=== PATIENT | female | born 1935 | race Caucasian/White ===

== ENCOUNTER 2019-11-28 13:30 | Inpatient (IN) | payer MEDICARE, OTHER, SELFPAY ==
[2019-11-28] VITALS (8 sets, daily range): BP systolic 134–172; BP diastolic 57–76; PULSE 72–160; RESP 16–20; TEMP 36.8–37.1; O2SAT 97–99; BMI 26.6; BMI 25.3
--- NOTE | 2019-11-28 13:53 | ECG_ITS ---
APPROVED REPORT Exam: Resting ECG HR:162 bpm ECG Measurements Heart Rate 162 AXES QRSd 72 QRS -8 QT 260 T 205 QTc 426 <Conclusion> Atrial fibrillation with rapid ventricular response Septal infarct, age undetermined ST & T wave abnormality, consider inferior ischemia or digitalis effect Abnormal ECG Electronically signed by : Vinay Uribe, 12/01/2019 06:34:27
--- NOTE | 2019-11-28 14:01 | PC.NURSE ---
Azar Everett in with pt for cardiology consult
--- NOTE | 2019-11-28 14:02 | XR_ITS ---
PROCEDURE: XR CHEST PORTABLE CLINICAL HISTORY: ARRYTHMIA COMPARISON: No exams were available for comparison FINDINGS: The cardiomediastinal silhouette and pulmonary vascularity are within normal limits. The lungs are clear without infiltrates, suspicious nodules, or pleural effusions. No acute bony abnormalities. IMPRESSION: No acute findings. Dictated by: Dr. Saqib Soriano MD 11/28/2019 14:[address] Saqib Soriano MD in [facility] 11/28/2019 14:44
--- NOTE | 2019-11-28 14:06 | PC.NURSE ---
rad here for portable chest xray
--- NOTE | 2019-11-28 14:07 | HMH.EDARPALP ---
ED Disposition Clinical Impression: Atrial fibrillation Qualifiers: Atrial fibrillation type: unspecified Qualified Code(s): I48.91 - Unspecified atrial fibrillation Disposition: Admitted As Inpatient Condition on Discharge: Good Referrals: Maurice Andrade MD [Primary Care Provider] - - Critical Care Critical Care Time: No Attestation: On 11/28/19, the high probability of a clinically significant, sudden or life threatening deterioration of the following system(s) required my full and direct attention, intervention and personal management. The time I documented below is in addition to time spent performing reported procedures but includes the following listed in this critical care notation. Medical Decision Making - Medical Records Medical records reviewed: Yes: I reviewed the patient's medical records. - Michael Inquiry Pt receiving controlled substance: No Vital Signs: 11/28/19 13:31 Temperature 98.4 F Temperature Source Oral Pulse Rate [Right Radial] 160 H Respiratory Rate 16 Blood Pressure [Right Arm] 163/74 H Blood Pressure Mean [Right Arm] 103 Blood Pressure Source [Right Arm] Automatic Cuff Blood Pressure Position [Right Arm] Sitting 02 Sat by Pulse Oximetry 98 Oxygen Delivery Method Room Air - Lab Data Lab results reviewed: Yes: I reviewed the patient's lab results. Lab Results 11/28/19 14:00: WBC 10.4, RBC 4.45, Hgb 13.3, Hct 39.9, MCV 89.5, MCH 29.9, MCHC 33.4, RDW 12.8, Plt Count 258, MPV 7.1 L, Neut % (Auto) 77.1, Lymph % (Auto) 15.8, [place] % (Auto) 5.9, Eos % (Auto) 0.7, Baso % (Auto) 0.7, Neut # (Auto) 8.0 H, Lymph # (Auto) 1.6, [place] # (Auto) 0.6, Eos # (Auto) 0.1, Baso # (Auto) 0.1 11/28/19 14:00: Sodium 133 L, Potassium 3.9, Chloride 98, Carbon Dioxide 24, Anion Gap 14.9, BUN 24 H, Creatinine 1.40 H, Estimated Creat Clear 34, Estimated GFR 36 L, Est GFR ( Amer) 43 L, Glucose 121 H, Calcium 9.3, Total Bilirubin 0.8, AST 45 H, ALT 32, Alkaline Phosphatase 66, Troponin I 0.02, Total Protein 7.2, Albumin 4.7, Globulin 2.5, Albumin/Globulin Ratio 1.9 H, Thyroxine (T4) 9.7 Result diagrams: 11/28/19 14:00 11/28/19 14:00 Orders (Tests/Meds): ED MEDICATIONS Generic Name Dose Route Start Last Admin Trade Name Freq PRN Reason Stop Dose Admin Diltiazem HCl 100 mg/ Sodium 100 mls @ 5 mls/hr 11/28/19 14:15 11/28/19 14:12 Chloride IV 12/28/19 14:14 5 mls/hr .Q20H HORTENCIA Administration Protocol Discontinued Medications Generic Name Dose Route Start Last Admin Trade Name Freq PRN Reason Stop Dose Admin Diltiazem HCl 10 mg 11/28/19 14:05 11/28/19 14:11 Cardizem 25mg/5ml Vial IV 11/28/19 14:06 10 mg ONCE ONE Administration Diltiazem HCl 100 mg/ Sodium 100 mls @ 5 mls/hr 11/28/19 14:24 Chloride IV 12/28/19 14:23 .Q20H HORTENCIA Protocol ORDERS Category Date Time Status XR chest portable Stat Exams 11/28/19 14:02 Taken Comprehensive Metabolic Panel Stat Lab 11/28/19 14:00 Results Free T4 (Free Thyroxine) Stat Lab 11/28/19 14:00 Received T4 (Thyroxine) Stat Lab 11/28/19 14:00 Results TSH [Thyroid Stimulating Hormone] Stat Lab 11/28/19 14:00 Results Troponin I Q3H Lab 11/28/19 17:15 Ordered Troponin I Q3H Lab 11/28/19 20:15 Ordered Troponin I Stat Lab 11/28/19 14:00 Results - ECG Data Tracing #1 Arrhythmias present: afib Ischemic changes: non-specific ST-T wave changes - Physician Consults Physician Consulted: josé Reason -: Admission Additional Consult: nirmal Reason -: Pt condition Arrhythmia/Palpitations HPI - General Chief Complaint: Arrhythmia/Palpitations Stated Complaint: high blood pressure Time Seen by Provider: 11/28/19 13:40 Mode of Arrival: Ambulatory Source of Information: Patient, Relative, Medical Record Limitations: No Limitations - History of Present Illness HPI narrative: seen by pcp with increased hr - irreg with no hx of a fib - sent by pcp - has hx of htn - no syncope or ches
--- NOTE | 2019-11-28 14:10 | PC.NURSE ---
CV lab at bedside
--- NOTE | 2019-11-28 14:12 | HMH.CNCARD ---
History of Present Illness Consult date: 11/28/19 Requesting physician: Maurice Andrade Consult reason: atrial fibrillation Chief complaint: irregular, rapid heart rate Additional Medical History:: 1. Hypertension 2. New onset atrial fibrillation, 11/28/2019, with rapid ventricular response up to 170 bpm History of present illness: 83-year-old white female with history of hypertension presented to Dr. Andrade's office for evaluation of irregular rapid heart rate today. It was suspected that the patient had atrial fibrillation and was sent to the emergency department for further treatment. Patient denies any chest pain, pressure or tightness. At the time of my exam the patient had received a bolus of Cardizem and heart rate had improved down to around 110 bpm. Patient was still not convinced that she had anything that warranted hospitalization. Tried to explain the risk of stroke and the need to evaluate the etiology of her atrial fibrillation, although most likely it is related to her age. Patient takes a combination of diltiazem and Toprol on a regular basis for blood pressure. She maintains compliance with her medication. She is a non-smoker, nondrinker and nondiabetic. She denies any history of thyroid issues. She denies any recent fever, chills or GI illness. [facility] History Medical History: Denies:: Diabetes Mellitus Type 1, Diabetes Mellitus Type 2 *Have you ever received a pneumonia vaccine?: No *Have you received a flu vaccine this season?: No - *Social History Smoking Status: Never smoker Alcohol Intake: never *Occupational Status:: retired *Travel in the last 8 weeks: None Family Hx:: No significant family history Meds Allergies Allergy/AdvReac Type Severity Reaction Status Date / Time No Known Allergies Allergy Verified 04/10/18 13:25 Review of Systems - Review of Systems Review of systems:: pertinent systems reviewed and negative unless documented below - *Cardiovascular Denies chest pain, Denies shortness of breath - *Respiratory Denies cough, Denies shortness of breath - *Gastrointestinal Denies loose stools, Denies nausea, Denies vomiting - *Genitourinary Denies blood in urine - *Musculoskeletal Denies joint pain, Denies back pain - *Neurologic Denies tingling/numbness/burning sensations Exam Vital signs and Labs for Last 24 Hours: Temp Pulse Resp BP Pulse Ox 98.4 F 160 H 16 163/74 H 98 11/28/19 13:31 11/28/19 13:31 11/28/19 13:31 11/28/19 13:31 11/28/19 13:31 I & O for Last 24 hours: Intake & Output 11/26/19 11/27/19 11/28/19 11/29/19 11:59 11:59 11:59 11:59 Weight 160 lb - *Routine HEENT Exam Head: Present: normocephalic Eye: Present: EOMI, PERRL ENT: Present: mucous membranes moist - *Routine Neck Exam Present: supple. Absent: JVD, carotid bruit - *Routine Respiratory Exam Present: CTA bilaterally. Absent: accessory muscle use, rales, rhonchi, wheezes - *Routine Cardiovascular Exam Present: RRR. Absent: murmur, gallop, rubs - *Routine Abdominal Exam Present: soft. Absent: tenderness, distended, guarding - *Routine Extremities Exam Absent: edema, calf tenderness - *Routine Neurological Exam Present: alert, oriented X3, moving all extremities Assessment and Plan (1) Atrial fibrillation with rapid ventricular response Current visit: Yes Status: Acute Category: Medical Code(s): I48.91 - Unspecified atrial fibrillation (2) New onset atrial fibrillation Current visit: Yes Status: Acute Category: Medical Code(s): I48.91 - Unspecified atrial fibrillation (3) Chronic hypertension Current visit: Yes Status: Acute Category: Medical Code(s): I10 - Essential (primary) hypertension - Assessment and plan all Dx Assessment and Plan for all problems:: 1. New onset atrial fibrillation with rapid ventricular response. Initially sensitive to Cardizem bolus with plans for Cardizem drip to begin with titration
[2019-11-28 14:14] LABS: Basophils # 0.1 K/mm3 (0-0.2); Basophils % 0.7 % (0.1-2.0); Eosinophils # 0.1 K/mm3 (0.0-0.4); Eosinophils % 0.7 % (0.1-12.0); Hematocrit 39.9 % (37.0-47.0); Hemoglobin 13.3 g/dL (12.2-16.2); Lymphocytes # 1.6 K/mm3 (0.7-4.5); Lymphocytes % 15.8 % (10-50); Mean Corpuscular HGB Conc 33.4 g/dL (31.8-35.4); Mean Corpuscular Hemoglobin 29.9 pg (27.0-31.2); Mean Corpuscular Volume 89.5 fl (81-99); Mean Platelet Volume 7.1 fl (7.4-10.4); Monocytes # 0.6 K/mm3 (0.1-1.0); Monocytes % 5.9 % (1.7-9.3); Neutrophils % 77.1 % (37.0-80.0); Platelet Count 258 K/mm3 (142-424); Red Blood Count 4.45 M/mm3 (4.20-5.40); Red Cell Distribution Width 12.8 % (11.5-17.5); White Blood Count 10.4 K/mm3 (4.8-10.8)
[2019-11-28 14:20] LABS: Chloride 98 mmol/L (98-107); Potassium 3.9 mmoL/L (3.5-5.1); Sodium 133 mmol/L (136-145)
[2019-11-28 14:22] LABS: Blood Urea Nitrogen 24 mg/dl (7-17); Creatinine Clearance Estimated 34 mL/min (50-200); Estimated Glomerular Filt Rate 36 ml/min (>60); GFR (African American) 43 ML/MIN (>60)
[2019-11-28 14:23] LABS: Alanine Aminotransferase 32 U/L (12-78); Albumin Level 4.7 g/dl (3.5-5.0); Albumin/Globulin Ratio 1.9 (1.1-1.8); Alkaline Phosphatase 66 U/L (38-126); Anion Gap 14.9 mEq/L (5-15); Aspartate Amino Transferase 45 U/L (14-36); Bilirubin,Total 0.8 mg/dl (0.2-1.3); Calcium 9.3 mg/dl (8.4-10.2); Carbon Dioxide 24 mmol/L (22.0-30.0); Globulin 2.5 g/dL (1.3-3.2); Glucose 121 mg/dl (74-100); Total Protein,Serum 7.2 g/dl (6.3-8.2)
[2019-11-28 14:36] LABS: Troponin I 0.02 ng/ml (0.00-0.034)
[2019-11-28 14:40] LABS: T4 (Thyroxine) 9.7 ug/dl (5.53-11.0)
[2019-11-28 14:49] LABS: Free T4 (Free Thyroxine) 1.18 ng/dl (0.78-2.19)
--- NOTE | 2019-11-28 15:02 | HMH.PHAVTE ---
[facility] Pharmacy VTE Monitoring - Patient Demographics Admission date: 11/28/19 Report Date: 11/28/19 Time: 15:02 Allergies/Adverse Reactions: Patient Allergies No Known Allergies Allergy (Verified 04/10/18 13:25) Height: 1.65 m Weight: 72.575 kg Patient Problems: Current Active Problems Atrial fibrillation with rapid ventricular response (Acute) New onset atrial fibrillation (Acute) Chronic hypertension (Acute) Atrial fibrillation (Acute) - VTE Risk Labs: VTE Related Lab Results Hgb 13.3 g/dL (12.2-16.2) 11/28/19 14:00 Hct 39.9 % (37.0-47.0) 11/28/19 14:00 Plt Count 258 K/mm3 (142-424) 11/28/19 14:00 BUN 24 mg/dl (7-17) H 11/28/19 14:00 Creatinine 1.40 mg/dl (0.52-1.04) H 11/28/19 14:00 Estimated Creat Clear 34 mL/min (50-200) 11/28/19 14:00 - Prophylaxis VTE Prophylaxis Ordered?: Yes Types of VTE Prophylaxis: TEDS Knee High Location of Applied Device: Bilateral Lower Extremeties - VTE Diagnosis Confirmed Treatment or plan recommended: Continue Current Treatment
--- NOTE | 2019-11-28 15:16 | HMH.PHAINT ---
MEDICATION RECONCILIATION COMPLETED ON PATIENT USING MD LIST FROM [facility] AND EXTERNAL FILL HISTORY FROM PHARMACY. -JAYDE HARRISD
--- NOTE | 2019-11-28 15:30 | PC.NURSE ---
Report given to CHERISE Martínez/
--- NOTE | 2019-11-28 15:41 | PC.NURSE ---
TRANSPORTED TO [facility] BY ER STAFF AND TECH
--- NOTE | 2019-11-28 17:23 | PC.NURSE ---
1700 - Received report and resumed care from Brii Sommer RN
[2019-11-28 17:39] LABS: Troponin I 0.03 ng/ml (0.00-0.034)
--- NOTE | 2019-11-28 18:57 | HMH.ACPN2 ---
Internal Medicine - PN: Subj *Date: 11/28/19 *Time: 18:57 Interval history: Sent to ER with new onset atrial fibrillation. Was seen by Dr. Andrade in [facility] office. See H&P from office. Immunization status undocumented, but is assumed she needs Prevnar at this time. This was NOT given today in the office dur to her clinical presentation. 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 O: NAD, but HR was 138 and irregular. Lungs clear. No leg edema. P: Admitted from ER on Diltiazem drip. Cardiology consulted. See Cardiology evaluation Exam Vital signs and Labs for Last 24 Hours: Temp Pulse Resp BP Pulse Ox 98.5 F 88 16 134/62 97 11/28/19 15:58 11/28/19 18:00 11/28/19 18:00 11/28/19 18:00 11/28/19 18:00 Laboratory Results - last 24 hr 11/28/19 14:00: WBC 10.4, RBC 4.45, Hgb 13.3, Hct 39.9, MCV 89.5, MCH 29.9, MCHC 33.4, RDW 12.8, Plt Count 258, MPV 7.1 L, Neut % (Auto) 77.1, Lymph % (Auto) 15.8, [place] % (Auto) 5.9, Eos % (Auto) 0.7, Baso % (Auto) 0.7, Neut # (Auto) 8.0 H, Lymph # (Auto) 1.6, [place] # (Auto) 0.6, Eos # (Auto) 0.1, Baso # (Auto) 0.1 11/28/19 14:00: Sodium 133 L, Potassium 3.9, Chloride 98, Carbon Dioxide 24, Anion Gap 14.9, BUN 24 H, Creatinine 1.40 H, Estimated Creat Clear 34, Estimated GFR 36 L, Est GFR ( Amer) 43 L, Glucose 121 H, Calcium 9.3, Total Bilirubin 0.8, AST 45 H, ALT 32, Alkaline Phosphatase 66, Troponin I 0.02, Total Protein 7.2, Albumin 4.7, Globulin 2.5, Albumin/Globulin Ratio 1.9 H, TSH 0.80, Thyroxine (T4) 9.7 11/28/19 14:00: Free T4 1.18 11/28/19 17:10: Troponin I 0.03 I & O for Last 24 hours: Intake & Output 11/26/19 11/27/19 11/28/19 11/29/19 11:59 11:59 11:59 11:59 Intake Total 480 / 480 Balance 480 / 480 Weight 152 lb 8 oz Assessment and Plan (1) Atrial fibrillation with rapid ventricular response Current visit: Yes Status: Acute Category: Medical Code(s): I48.91 - Unspecified atrial fibrillation (2) New onset atrial fibrillation Current visit: Yes Status: Acute Category: Medical Code(s): I48.91 - Unspecified atrial fibrillation (3) Chronic hypertension Current visit: Yes Status: Acute Category: Medical Code(s): I10 - Essential (primary) hypertension (4) Memory changes Current visit: Yes Status: Acute Category: Medical Code(s): R41.3 - Other amnesia
--- NOTE | 2019-11-28 19:10 | PC.NURSE ---
report given to heber
[2019-11-28 19:47] LABS: Thyroid Stimulating Hormone 0.55 uIU/mL (0.465-4.68)
[2019-11-28 20:51] LABS: Troponin I 0.03 ng/ml (0.00-0.034)
--- NOTE | 2019-11-28 22:06 | HMH.ACPN2 ---
Internal Medicine - PN: Subj *Date: 11/28/19 *Time: 22:06 Interval history: She is resting quite comfortably this evening. Her heart rate has slowed to 80s and 90s but she remains in atrial fibrillation. Her lungs are clear and she has no leg edema. Exam Vital signs and Labs for Last 24 Hours: Temp Pulse Resp BP Pulse Ox 98.3 F 72 18 172/57 H 97 11/28/19 20:00 11/28/19 20:00 11/28/19 20:00 11/28/19 20:00 11/28/19 20:00 Laboratory Results - last 24 hr 11/28/19 14:00: WBC 10.4, RBC 4.45, Hgb 13.3, Hct 39.9, MCV 89.5, MCH 29.9, MCHC 33.4, RDW 12.8, Plt Count 258, MPV 7.1 L, Neut % (Auto) 77.1, Lymph % (Auto) 15.8, [place] % (Auto) 5.9, Eos % (Auto) 0.7, Baso % (Auto) 0.7, Neut # (Auto) 8.0 H, Lymph # (Auto) 1.6, [place] # (Auto) 0.6, Eos # (Auto) 0.1, Baso # (Auto) 0.1 11/28/19 14:00: Sodium 133 L, Potassium 3.9, Chloride 98, Carbon Dioxide 24, Anion Gap 14.9, BUN 24 H, Creatinine 1.40 H, Estimated Creat Clear 34, Estimated GFR 36 L, Est GFR ( Amer) 43 L, Glucose 121 H, Calcium 9.3, Total Bilirubin 0.8, AST 45 H, ALT 32, Alkaline Phosphatase 66, Troponin I 0.02, Total Protein 7.2, Albumin 4.7, Globulin 2.5, Albumin/Globulin Ratio 1.9 H, TSH 0.80, Thyroxine (T4) 9.7 11/28/19 14:00: Free T4 1.18 11/28/19 17:10: Troponin I 0.03 11/28/19 17:10: TSH 0.55 D 11/28/19 20:24: Troponin I 0.03 I & O for Last 24 hours: Intake & Output 11/26/19 11/27/19 11/28/19 11/29/19 11:59 11:59 11:59 11:59 Intake Total 480 / 480 Balance 480 / 480 Weight 152 lb 8 oz - Constitutional no acute distress - *Routine Respiratory Exam Present: CTA bilaterally - *Routine Cardiovascular Exam Present: irregular rhythm - *Routine Abdominal Exam Present: soft. Absent: tenderness, organomegaly - *Routine Extremities Exam Absent: edema - *Routine Neurological Exam Present: alert. Absent: sensory deficit, motor deficit Assessment and Plan (1) Atrial fibrillation with rapid ventricular response Current visit: Yes Status: Acute Category: Medical Code(s): I48.91 - Unspecified atrial fibrillation (2) New onset atrial fibrillation Current visit: Yes Status: Acute Category: Medical Code(s): I48.91 - Unspecified atrial fibrillation (3) Chronic hypertension Current visit: Yes Status: Acute Category: Medical Code(s): I10 - Essential (primary) hypertension (4) Memory changes Current visit: Yes Status: Acute Category: Medical Code(s): R41.3 - Other amnesia - Assessment and plan all Dx Assessment and Plan for all problems:: Resume diazepam 2 mg 3 times daily. Resume donepezil 5 mg at bedtime. Resume hydrochlorothiazide triamterene 25mg?37.5mg, 1/2 tablet orally each day.
[2019-11-29] VITALS (15 sets, daily range): BP systolic 111–157; BP diastolic 43–78; PULSE 60–123; RESP 14–18; TEMP 36.4–37.2; O2SAT 95–100; BMI 25.3
--- NOTE | 2019-11-29 04:11 | PC.NURSE ---
Pt has been awake most of the night and has only slept at short intervals. Raymond at bedside this evening and ordered Aricept 5 mg PO at HS and diazepam 2.5 mg PO at HS. Both were administered per mar. Pt lungs were clear bilaterally. Radial pulses are irregular and pt has remained in controlled A. Fib t/o this shift. Pt is urinating clear, light yellow urine with no odor. Cardizem gtt is flowing @ 5 mg/hr through her LAC along with NS @ 50 ml/hr. Pt's family stated that they would be in early in the morning for MD rounds. Call light is within reach, no complaints at this time. Will continue to monitor for any changes.
[2019-11-29 06:19] LABS: Basophils # 0.1 K/mm3 (0-0.2); Basophils % 0.9 % (0.1-2.0); Eosinophils # 0.2 K/mm3 (0.0-0.4); Eosinophils % 3.1 % (0.1-12.0); Hematocrit 36.6 % (37.0-47.0); Hemoglobin 12.2 g/dL (12.2-16.2); Lymphocytes # 2.1 K/mm3 (0.7-4.5); Lymphocytes % 29.5 % (10-50); Mean Corpuscular HGB Conc 33.4 g/dL (31.8-35.4); Mean Corpuscular Hemoglobin 30.3 pg (27.0-31.2); Mean Corpuscular Volume 90.7 fl (81-99); Mean Platelet Volume 7.6 fl (7.4-10.4); Monocytes # 0.5 K/mm3 (0.1-1.0); Monocytes % 7.5 % (1.7-9.3); Neutrophils # 4.2 K/mm3 (1.8-7.8); Platelet Count 233 K/mm3 (142-424); Red Blood Count 4.04 M/mm3 (4.20-5.40); Red Cell Distribution Width 13.1 % (11.5-17.5); White Blood Count 7.2 K/mm3 (4.8-10.8)
[2019-11-29 06:59] LABS: Chloride 107 mmol/L (98-107); Potassium 3.7 mmoL/L (3.5-5.1); Sodium 138 mmol/L (136-145)
[2019-11-29 07:02] LABS: Anion Gap 9.7 mEq/L (5-15); Blood Urea Nitrogen 21 mg/dl (7-17); Calcium 8.6 mg/dl (8.4-10.2); Carbon Dioxide 25 mmol/L (22.0-30.0); Cholesterol 139 mg/dl (140-200); Creatinine Clearance Estimated 46 mL/min (50-200); Estimated Glomerular Filt Rate 53 ml/min (>60); GFR (African American) 64 ML/MIN (>60); Glucose 112 mg/dl (74-100); Triglycerides 79 mg/dl (30-150); VLDL Cholesterol 16 mg/dL (0-40)
[2019-11-29 07:03] LABS: Chol/HDL Ratio 2.2 (1-3.5); HDL Cholesterol 62 mg/dl (40-60); Magnesium 2.1 mg/dl (1.6-2.3)
[2019-11-29 07:13] LABS: Direct LDL Cholesterol 67.72 mg/dL (100-129)
--- NOTE | 2019-11-29 12:11 | P.PN_ITS ---
Internal Medicine - PN: Subj *Date: 11/29/19 *Time: 12:11 Interval history: The patient was seen this morning. She had a comfortable night, but remains in atrial fibrillation. Rate is more controlled, from 80 to 100 BPM. Exam Vital signs and Labs for Last 24 Hours: Temp Pulse Resp BP Pulse Ox 98.0 F 81 18 154/65 H 99 11/29/19 10:00 11/29/19 10:00 11/29/19 10:00 11/29/19 10:00 11/29/19 10:00 Laboratory Results - last 24 hr 11/28/19 14:00: WBC 10.4, RBC 4.45, Hgb 13.3, Hct 39.9, MCV 89.5, MCH 29.9, MCHC 33.4, RDW 12.8, Plt Count 258, MPV 7.1 L, Neut % (Auto) 77.1, Lymph % (Auto) 15.8, [place] % (Auto) 5.9, Eos % (Auto) 0.7, Baso % (Auto) 0.7, Neut # (Auto) 8.0 H, Lymph # (Auto) 1.6, [place] # (Auto) 0.6, Eos # (Auto) 0.1, Baso # (Auto) 0.1 11/28/19 14:00: Sodium 133 L, Potassium 3.9, Chloride 98, Carbon Dioxide 24, Anion Gap 14.9, BUN 24 H, Creatinine 1.40 H, Estimated Creat Clear 34, Estimated GFR 36 L, Est GFR ( Amer) 43 L, Glucose 121 H, Calcium 9.3, Total Bilirubin 0.8, AST 45 H, ALT 32, Alkaline Phosphatase 66, Troponin I 0.02, Total Protein 7.2, Albumin 4.7, Globulin 2.5, Albumin/Globulin Ratio 1.9 H, TSH 0.80, Thyroxine (T4) 9.7 11/28/19 14:00: Free T4 1.18 11/28/19 17:10: Troponin I 0.03 11/28/19 17:10: TSH 0.55 D 11/28/19 20:24: Troponin I 0.03 11/29/19 05:55: WBC 7.2 D, RBC 4.04 L, Hgb 12.2, Hct 36.6 L, MCV 90.7, MCH 30.3, MCHC 33.4, RDW 13.1, Plt Count 233, MPV 7.6, Neut % (Auto) 59.0, Lymph % (Auto) 29.5, [place] % (Auto) 7.5, Eos % (Auto) 3.1, Baso % (Auto) 0.9, Neut # (Auto) 4.2, Lymph # (Auto) 2.1, [place] # (Auto) 0.5, Eos # (Auto) 0.2, Baso # (Auto) 0.1 11/29/19 05:55: Sodium 138, Potassium 3.7, Chloride 107, Carbon Dioxide 25, Anion Gap 9.7, BUN 21 H, Creatinine 1.00 D, Estimated Creat Clear 46, Estimated GFR 53 L, Est GFR ( Amer) 64 D, Glucose 112 H, Calcium 8.6, Magnesium 2.1, Triglycerides 79, Cholesterol 139 L, LDL Cholesterol Direct 67.72 L, VLDL Cholesterol 16, HDL Cholesterol 62 H, Cholesterol/HDL Ratio 2.2 I & O for Last 24 hours: Intake & Output 11/27/19 11/28/19 11/29/19 11/30/19 11:59 11:59 11:59 11:59 Intake Total 480 / 480 Balance 480 / 480 Weight 152 lb 3 oz - Constitutional no acute distress - *Routine HEENT Exam Head: Present: normocephalic Eye: Present: PERRL ENT: Present: mucous membranes moist - *Routine Respiratory Exam Present: CTA bilaterally - *Routine Cardiovascular Exam Present: irregular rhythm, irregularly irregular - *Routine Abdominal Exam Present: soft. Absent: tenderness - *Routine Extremities Exam Absent: edema Assessment and Plan (1) Atrial fibrillation with rapid ventricular response Current visit: Yes Status: Acute Category: Medical Code(s): I48.91 - Unspecified atrial fibrillation (2) New onset atrial fibrillation Current visit: Yes Status: Acute Category: Medical Code(s): I48.91 - Unspecified atrial fibrillation (3) Chronic hypertension Current visit: Yes Status: Acute Category: Medical Code(s): I10 - Essential (primary) hypertension (4) Memory changes Current visit: Yes Status: Acute Category: Medical Code(s): R41.3 - Other amnesia - Assessment and plan all Dx Assessment and Plan for all problems:: I am not sure if her atrial fibrillation is chronic, but suspect at least, episodic dysrrhythmia. Will resume bisoprolol and oral diltiazem.
--- NOTE | 2019-11-29 16:23 | PC.NURSE ---
Pt has been pleasant and cooperative this shift. A&O X4. No complaints of pain or SOA. Pt is step-down status and receiving a continuous Cardizem drip. Telemetry reveals controlled a-fib with a HR between 80-100. Lungs CTA. No edema noted. Skin is c/d/i. Pt is on room air and sats. have remained >95%. Pt ambulates independently to and from the bathroom and only requires assistance with the IV pole. 18 G peripheral IV in place to the LT AC is patent and infusing NS @ 50 ML/HR + Cardizem @ 10 ML/HR. VSS. Call light within reach. Will continue to monitor.
--- NOTE | 2019-11-29 18:19 | PC.NURSE ---
Pt has been pleasant and cooperative this shift. A&O X4. No complaints of pain or SOA. Pt is step-down status and receiving a continuous Cardizem drip. Telemetry reveals controlled a-fib with a HR between 80-100. Lungs CTA. No edema noted. Skin is c/d/i. Pt is on room air and sats. have remained >95%. Pt ambulates independently to and from the bathroom and only requires assistance with the IV pole. 18 G peripheral IV in place to the LT AC is patent and infusing NS @ 50 ML/HR + Cardizem @ 5 ML/HR. VSS. Call light within reach. Will continue to monitor.
[2019-11-30] VITALS (13 sets, daily range): BP systolic 119–157; BP diastolic 46–69; PULSE 60–120; RESP 14–20; TEMP 36.4–37.3; O2SAT 95–100; BMI 25.4
--- NOTE | 2019-11-30 02:23 | PC.NURSE ---
She was altert at the beginning of the shift but confusion progressed as the night progressed. She had forgotten that she was at the hospital and how she got to the hospital. Frequent reminders needed on how she got to the hospital. She ambulates independently. Has been in controlled afib most of the night except around midnight when she was awakened for a temperature and screamed out and that is when the confusion was noted. She is in controlled afib at this time.
--- NOTE | 2019-11-30 04:06 | PC.NURSE ---
Less confusion noted at this time
--- NOTE | 2019-11-30 05:28 | PC.NURSE ---
Cardizem gtt is off at this time.
--- NOTE | 2019-11-30 12:44 | HMH.ACPN2 ---
Internal Medicine - PN: Subj *Date: 11/30/19 *Time: 12:44 Interval history: The patient remains comfortable. She was able to sleep. She remains in atrial fibrillation but blood pressure and heart rate are controlled. Yesterday she was started on orals and IV diltiazem has been discontinued. She was on metoprolol and diltiazem as an outpatient. Her son from [place] is with her today. He states that when she goes home she will be with his sister. Exam Vital signs and Labs for Last 24 Hours: Temp Pulse Resp BP Pulse Ox 98.5 F 100 H 16 134/60 98 11/30/19 12:00 11/30/19 12:00 11/30/19 12:00 11/30/19 12:00 11/30/19 12:00 I & O for Last 24 hours: Intake & Output 11/28/19 11/29/19 11/30/19 12/01/19 11:59 11:59 11:59 11:59 Intake Total 480 / 480 1948 / 1948 Output Total 600 / 600 Balance 480 / 480 1348 / 1348 Weight 152 lb 3 oz 152 lb 11.2 oz - Constitutional no acute distress - *Routine HEENT Exam Head: Present: normocephalic Eye: Present: PERRL ENT: Present: mucous membranes moist - *Routine Respiratory Exam Present: CTA bilaterally - *Routine Cardiovascular Exam Present: irregular rhythm - *Routine Abdominal Exam Present: soft. Absent: tenderness - *Routine Extremities Exam Absent: edema - *Routine Neurological Exam Present: alert, oriented X3 Assessment and Plan (1) Atrial fibrillation with rapid ventricular response Current visit: Yes Status: Acute Category: Medical Code(s): I48.91 - Unspecified atrial fibrillation (2) New onset atrial fibrillation Current visit: Yes Status: Acute Category: Medical Code(s): I48.91 - Unspecified atrial fibrillation (3) Chronic hypertension Current visit: Yes Status: Acute Category: Medical Code(s): I10 - Essential (primary) hypertension (4) Memory changes Current visit: Yes Status: Acute Category: Medical Code(s): R41.3 - Other amnesia (5) Anxiety Current visit: Yes Status: Acute Category: Medical Code(s): F41.9 - Anxiety disorder, unspecified - Assessment and plan all Dx Assessment and Plan for all problems:: Yesterday she received 120 mg of extended release Cardizem. Today she will receive 240 mg and continue on this daily providing blood pressure and pulse stay within desired range. Continue metoprolol. Anticipate discharge tomorrow.
--- NOTE | 2019-11-30 16:46 | PC.NURSE ---
Pt has been pleasant and cooperative this shift. A&O X4 although, intermittent periods of confusion noted. No complaints of pain or SOA. Pt is now Med/Surg status and Cardizem drip has been DC'd. Telemetry reveals controlled a-fib with a HR between 80-100. Lungs CTA. No edema noted. Skin is c/d/i. Pt is on room air and sats. have remained >95%. Pt ambulates independently to and from the bathroom and only requires assistance with the IV pole. 18 G peripheral IV in place to the LT AC is patent and infusing NS @ 50 ML/HR. VSS. Call light within reach. Will continue to monitor.
[2019-12-01] VITALS: BP 162/60; PULSE 58; PULSE 80; RESP 20; TEMP 36.8; O2SAT 97
[2019-12-01 04:00] VITALS: BP 157/62; PULSE 70; PULSE 80; RESP 20; TEMP 36.4; O2SAT 98
[2019-12-01 05:00] VITALS: BMI 25.8
[2019-12-01 05:39] LABS: Basophils # 0.1 K/mm3 (0-0.2); Basophils % 1.1 % (0.1-2.0); Eosinophils # 0.5 K/mm3 (0.0-0.4); Eosinophils % 6.4 % (0.1-12.0); Hematocrit 36.9 % (37.0-47.0); Hemoglobin 12.3 g/dL (12.2-16.2); Lymphocytes # 2.6 K/mm3 (0.7-4.5); Lymphocytes % 33.7 % (10-50); Mean Corpuscular HGB Conc 33.4 g/dL (31.8-35.4); Mean Corpuscular Hemoglobin 29.7 pg (27.0-31.2); Mean Platelet Volume 7.8 fl (7.4-10.4); Monocytes # 0.4 K/mm3 (0.1-1.0); Monocytes % 4.8 % (1.7-9.3); Neutrophils # 4.1 K/mm3 (1.8-7.8); Neutrophils % 54.1 % (37.0-80.0); Platelet Count 246 K/mm3 (142-424); Red Blood Count 4.14 M/mm3 (4.20-5.40); Red Cell Distribution Width 13.5 % (11.5-17.5); White Blood Count 7.6 K/mm3 (4.8-10.8)
[2019-12-01 05:46] LABS: Chloride 107 mmol/L (98-107); Sodium 138 mmol/L (136-145)
[2019-12-01 05:47] LABS: Potassium 3.8 mmoL/L (3.5-5.1)
[2019-12-01 05:49] LABS: Blood Urea Nitrogen 17 mg/dl (7-17); Creatinine Clearance Estimated 46 mL/min (50-200); Estimated Glomerular Filt Rate 60 ml/min (>60); GFR (African American) 72 ML/MIN (>60)
[2019-12-01 05:50] LABS: Anion Gap 7.8 mEq/L (5-15); Calcium 8.2 mg/dl (8.4-10.2); Carbon Dioxide 27 mmol/L (22.0-30.0); Glucose 108 mg/dl (74-100)
--- NOTE | 2019-12-01 06:38 | PC.NURSE ---
Pt has slept comfortably t/o this shift. A&O to person and place, but not time. Pt had episodes of confusion, but was easily reoriented. Lung sounds clear. Radial pulses irregular. Pt is still in controlled a fib., episodes of tachycardia throughout the night but hasn't lasted longer than 15 seconds. Pt is now awake, watching television. Call light within reach, along with all other safety measures. No complaints at this time, will continue to monitor.
--- NOTE | 2019-12-01 07:30 | P.PN_ITS ---
Subjective Date: 12/01/19 Time: 07:30 Principal diagnosis: A. fib Interval history: 83 yo WF in bed eating breakfast in NAD. Telemetry continues to show A. fib with CVR. Pt denies any chest pain, pressure or tightness. She continues to say that her nerves are playing a big role in this problem. She relates being out of her anxiety meds for one month. Exam Vital signs and Labs for Last 24 Hours: Temp Pulse Resp BP Pulse Ox 97.5 F L 80 20 157/62 H 98 12/01/19 04:00 12/01/19 04:00 12/01/19 04:00 12/01/19 04:00 12/01/19 04:00 Laboratory Results - last 24 hr 12/01/19 05:30: WBC 7.6, RBC 4.14 L, Hgb 12.3, Hct 36.9 L, MCV 89.0, MCH 29.7, MCHC 33.4, RDW 13.5, Plt Count 246, MPV 7.8, Neut % (Auto) 54.1, Lymph % (Auto) 33.7, [place] % (Auto) 4.8, Eos % (Auto) 6.4, Baso % (Auto) 1.1, Neut # (Auto) 4.1, Lymph # (Auto) 2.6, [place] # (Auto) 0.4, Eos # (Auto) 0.5 H, Baso # (Auto) 0.1 12/01/19 05:30: Sodium 138, Potassium 3.8, Chloride 107, Carbon Dioxide 27, Anion Gap 7.8, BUN 17, Creatinine 0.90, Estimated Creat Clear 46, Estimated GFR 60, Est GFR ( Amer) 72, Glucose 108 H, Calcium 8.2 L I & O for Last 24 hours: Intake & Output 11/28/19 11/29/19 11/30/19 12/01/19 11:59 11:59 11:59 11:59 Intake Total 480 / 480 1948 / 1948 1557 / 1557 Output Total 600 / 600 600 / 600 Balance 480 / 480 1348 / 1348 957 / 957 Weight 152 lb 3 oz 152 lb 11.2 oz 155 lb - *Routine HEENT Exam Head: Present: normocephalic Eye: Present: EOMI, PERRL ENT: Present: mucous membranes moist - *Routine Respiratory Exam Present: CTA bilaterally. Absent: accessory muscle use, rales, rhonchi, wheezes - *Routine Cardiovascular Exam Present: RRR. Absent: murmur, gallop, rubs - *Routine Abdominal Exam Present: soft. Absent: tenderness, distended, guarding - *Routine Extremities Exam Absent: edema, calf tenderness - *Routine Neurological Exam Present: alert, oriented X3, moving all extremities Progress Note: A&P (1) Atrial fibrillation with rapid ventricular response Status: Acute Current Visit: Yes (2) New onset atrial fibrillation Status: Acute Current Visit: Yes (3) Chronic hypertension Status: Acute Current Visit: Yes (4) Memory changes Status: Acute Current Visit: Yes (5) Anxiety Status: Acute Current Visit: Yes Assessment and Plan for All Diagnoses:: 1. A. fib, newly diagnosed, now with CVR on combo of dilitiazem and metoprolol. Pt's home meds included Diltiazem CD 240 mg daily and metoprolol succinate 50 mg daily. Would recommend increasing metoprolol succinate to 50 mg daily. Recommend 48 hr holter monitor to assess for evidence of tachy-mario syndrome as I suspect she will need either referral for EP evaluation or placement of pacemaker in the near future. She is not wanting to consider a pacemaker if the re are other possible options. Currently on Xarelto 15 mg daily and tolerating without complications. 2. HTN 3. Anxiety
--- NOTE | 2019-12-01 07:44 | HMH.ACPN2 ---
Internal Medicine - PN: Subj *Date: 12/01/19 *Time: 07:48 Interval history: Patient denies chest pain and shortness of breath. She states repeatedly her only problem is her nervousness. She slept some last night but never sleeps well. She ambulates in the room without problems. She is eating as usual without problems. She is voiding QS. She states her bowels have not moved. Nursing notes relate some confusion and orientation. Exam Vital signs and Labs for Last 24 Hours: Temp Pulse Resp BP Pulse Ox 97.5 F L 80 20 157/62 H 98 12/01/19 04:00 12/01/19 04:00 12/01/19 04:00 12/01/19 04:00 12/01/19 04:00 Laboratory Results - last 24 hr 12/01/19 05:30: WBC 7.6, RBC 4.14 L, Hgb 12.3, Hct 36.9 L, MCV 89.0, MCH 29.7, MCHC 33.4, RDW 13.5, Plt Count 246, MPV 7.8, Neut % (Auto) 54.1, Lymph % (Auto) 33.7, [place] % (Auto) 4.8, Eos % (Auto) 6.4, Baso % (Auto) 1.1, Neut # (Auto) 4.1, Lymph # (Auto) 2.6, [place] # (Auto) 0.4, Eos # (Auto) 0.5 H, Baso # (Auto) 0.1 12/01/19 05:30: Sodium 138, Potassium 3.8, Chloride 107, Carbon Dioxide 27, Anion Gap 7.8, BUN 17, Creatinine 0.90, Estimated Creat Clear 46, Estimated GFR 60, Est GFR ( Amer) 72, Glucose 108 H, Calcium 8.2 L I & O for Last 24 hours: Intake & Output 11/28/19 11/29/19 11/30/19 12/01/19 11:59 11:59 11:59 11:59 Intake Total 480 / 480 1948 / 1948 1557 / 1557 Output Total 600 / 600 600 / 600 Balance 480 / 480 1348 / 1348 957 / 957 Weight 152 lb 3 oz 152 lb 11.2 oz 155 lb - Constitutional no acute distress Comments: Sitting up in the bed eating her breakfast and appears comfortable - *Routine Respiratory Exam Present: CTA bilaterally (Anteriorly and posteriorly) - *Routine Cardiovascular Exam Present: irregular rhythm (Monitor showing atrial fibrillation with varying ventricular response from 90s up to 130) - *Routine Abdominal Exam Present: soft, normoactive bowel sounds. Absent: tenderness - *Routine Extremities Exam Present: pulses intact. Absent: edema, calf tenderness - *Routine Neurological Exam Present: alert, oriented X3 - Routine Psychiatric Exam Present: anxious Comments: Relates events in her 20s causing her anxiety. Assessment and Plan (1) Atrial fibrillation with rapid ventricular response Current visit: Yes Status: Acute Category: Medical Code(s): I48.91 - Unspecified atrial fibrillation (2) New onset atrial fibrillation Current visit: Yes Status: Acute Category: Medical Code(s): I48.91 - Unspecified atrial fibrillation (3) Chronic hypertension Current visit: Yes Status: Acute Category: Medical Code(s): I10 - Essential (primary) hypertension (4) Memory changes Current visit: Yes Status: Acute Category: Medical Code(s): R41.3 - Other amnesia (5) Anxiety Current visit: Yes Status: Acute Category: Medical Code(s): F41.9 - Anxiety disorder, unspecified - Assessment and plan all Dx Assessment and Plan for all problems:: Patient will be discharged to home today. As per cardiology assessment and Plan for All Diagnoses:: 1. A. fib, newly diagnosed, now with CVR on combo of dilitiazem and metoprolol. Pt's home meds included Diltiazem CD 240 mg daily and metoprolol succinate 50 mg daily. Would recommend increasing metoprolol succinate to 50 mg daily. Recommend 48 hr holter monitor to assess for evidence of tachy-mario syndrome as I suspect she will need either referral for EP evaluation or placement of pacemaker in the near future. She is not wanting to consider a pacemaker if there are other possible options. Currently on Xarelto 15 mg daily and tolerating without complications. 2. HTN 3. Anxiety
[2019-12-01 07:56] VITALS: BP 156/72; PULSE 96; RESP 18; TEMP 36.8; O2SAT 95
[2019-12-01 07:59] VITALS: PULSE 90
[2019-12-01 08:00] VITALS: PULSE 109
[2019-12-01 08:42] VITALS: RESP 14
--- NOTE | 2019-12-01 09:26 | HMH.PHAINT ---
DISCHARGE COUNSELING COMPLETED ON PATIENT. NEW PRESCRIPTION FOR XARELTO. THIS WAS SENT TO [facility] IN [place]. PATIENT IS TO CONTINUE ALL OTHER HOME MEDICATIONS EXCEPT FOR SEROQUEL. PATIENT VERBALIZED UNDERSTANDING AND HAD NO QUESTIONS AT THIS TIME. -SILVESTRE KRAMER, JAYDED
--- NOTE | 2019-12-01 13:06 | HMH.DCSUM ---
General - General Admission date:: 11/28/19 Discharge date: 12/01/19 HPI HPI: Ms. Alexander is an 83-year-old female with a history of anxiety, hyperlipidemia, and hypertension who presented to the office of [facility] to see Dr. Andrade on 11/28/2019 for 2-month check. She reported at this time that her blood pressures had been elevated and that she had run out of medication the previous day. She denied chest pain, shortness of breath, dizziness, and palpitations. She did complain of anxiety. With exam in the office blood pressure was 178/80 and heart rate was found to be irregularly irregular with a rate of 138/min. Lungs sounded clear to auscultation bilaterally A&P. Lipid profile showed total cholesterol of 157, triglycerides of 141, LDL of 72, and HDL of 57. She was admitted from the office to [facility] for further evaluation and treatment with a cardiology consult and to be started on a Cardizem drip. Hospital Course Hospital Course: Patient was seen by cardiology with recommendations for Cardizem drip with titration to keep heart rate less than 100 bpm as long as systolic blood pressure was maintained greater than 120 mmHg. He noted the duration of the atrial fib to be unclear and therefore did not recommend electrical cardioversion but rate control with a combination of the calcium channel hao and beta-hao. Also recommended to start Xarelto or Eliquis which was done. If patient was not to convert spontaneously to sinus rhythm, plan would be for 30-days of anticoagulation prior to attempt of electrical cardioversion. He also recommended to rule out ischemic heart disease with serial troponins. Serial troponins were negative. Electrolytes were normal and renal function was good. Lipid profile revealed total cholesterol of 139 with triglycerides of 79, LDL of 67.7, and HDL of 62. TSH was normal at 1.18. Patient was gradually weaned from Cardizem drip after starting on p.o. Cardizem. She was also started back on metoprolol succinate and increased to 50 mg a day. She continually denied chest pain and shortness of breath and never felt palpitations. She did complain of being anxious. She was followed by cardiology who recommended to continue with the metoprolol and cardizem at discharge with a 48-hour Holter monitor to assess for evidence of tacky/bradycardia syndrome. It was felt that she might need EP evaluation or placement of pacemaker in the near future. Patient was not wanting to consider a pacemaker if there were any other possible options. She was also to continue with her Xarelto 15 mg daily. On 12/01/2019 patient was ready for discharge. She was discharged home in stable and satisfactory condition. She was to continue with her diet as usual. She was to follow-up with Dr. Andrade on 12/05/2019. Echo at time of discharge was pending. Medications as per medication discharge sheet. Objective Vital signs: Temp Pulse Resp BP Pulse Ox 98.2 F 109 H 14 156/72 H 95 12/01/19 07:56 12/01/19 08:00 12/01/19 08:42 12/01/19 07:56 12/01/19 07:56 Narrative: Exam Vital signs and Labs for Last 24 Hours: Temp Pulse Resp BP Pulse Ox 97.5 F L 80 20 157/62 H 98 12/01/19 04:00 12/01/19 04:00 12/01/19 04:00 12/01/19 04:00 12/01/19 04:00 Laboratory Results - last 24 hr 12/01/19 05:30: WBC 7.6, RBC 4.14 L, Hgb 12.3, Hct 36.9 L, MCV 89.0, MCH 29.7, MCHC 33.4, RDW 13.5, Plt Count 246, MPV 7.8, Neut % (Auto) 54.1, Lymph % (Auto) 33.7, [place] % (Auto) 4.8, Eos % (Auto) 6.4, Baso % (Auto) 1.1, Neut # (Auto) 4.1, Lymph # (Auto) 2.6, [place] # (Auto) 0.4, Eos # (Auto) 0.5 H, Baso # (Auto) 0.1 12/01/19 05:30: Sodium 138, Potassium 3.8, Chloride 107, Carbon Dioxide 27, Anion Gap 7.8, BUN 17, Creatinine 0.90, Estimated Creat Clear 46, Estimated GFR 60, Est GFR ( Amer) 72, Glucose 108 H, Calcium 8.2 L I & O for Last 24 hours: Intake & Output 11/28/19 11/29/1911/29
== END 2019-12-01 10:08 | disposition home or self-care (01) | DRG 310 ==
LOC: ER 13:58 → 2ND 14:46
PROVIDERS: Admitting Provider Family Medicine; Emergency Provider Emergency Medicine; PCP Family Medicine; Visit Provider Family Medicine
DX: I48.91 Unspecified atrial fibrillation (principal); I10 Essential (primary) hypertension; Z79.899 Other long term (current) drug therapy; F41.9 Anxiety disorder, unspecified; R41.3 Other amnesia
CPT/HCPCS: 36415; 71045; 80048; 80053; 80061; 83735; 84436; 84439; 84443; 84484; 85025; 93005; 93306; 96365; 96375; 99284

== ENCOUNTER 2020-01-01 12:38 | Day surgery (SDC) | payer MEDICARE, OTHER, SELFPAY ==
--- NOTE | 2020-01-01 12:43 | CA_ITS ---
APPROVED REPORT EXAM: Comprehensive 2D, Doppler, and color-flow Echocardiogram Able Bodied Watchman: RT Cassandra(R) Ht: 5 ft 5 in Wt: 160lbs BSA: 1.80 BP: 125/84 mmHg Indications: AFIB Procedure After obtaining informed consent, patient underwent transesophageal echo in the Assistant Manager. Type of Sedation : Conscious Sedation Sedation was administered by Adan RichardsR.N.A. Transesophageal probe was inserted and advanced into esophagus without difficulty by Dr. Heidy Landers. The ANA was performed without complications. Synchronized Cardioversion attempted: Successful Synchronized Cardioversion acheived with 150 Joules after 1 attempt(s). Throughout the procedure, the blood pressure, pulse oximetry, cardiac rhythm, and rate were monitored. The patient tolerated the procedure without adverse effects. Recovery from conscious sedation was uneventful and vital signs were stable. Left Ventricle Left ventricle is normal size, mild concentric left ventricular hypertrophy, visually estimated in the obtained views at approximately 55% with no regional wall motion abnormality. Right Ventricle Right ventricle is moderately enlarged with normal contractility. Atria Left atrium is markedly enlarged, left atrial appendage is free of thrombus, there is good appendage flow by spectral Doppler. Right atrium is moderately enlarged. Intra-atrial septum is intact, there is no flow across the interatrial septum, agitated saline contrast study fails to identify intracardiac shunt. Aortic Valve Aortic valve is minimally thickened and calcified, there is no aortic stenosis, there is no aortic insufficiency Mitral Valve Mitral valve leaflets are minimally thickened, there is moderate mitral regurgitation, there is blunting of the systolic forward flow seen in the pulmonary vein. Tricuspid Valve Tricuspid valve leaflets are minimally thickened, there is moderate to severe tricuspid regurgitation. Pulmonic Valve Pulmonic valve is minimally thickened and fibrosed. There is no pulmonic stenosis. Great Vessels Aortic root is normal size. Non-mobile atheromatous plaque seen in the arch and descending thoracic aorta. Pericardium Trivial pericardial effusion noted Conclusion 1. Biatrial enlargement as described above, no thrombus seen in the left atrium or left atrial appendage. 2. Normal left ventricular size preserved left ventricular systolic function. No regional wall motion abnormalities in the obtained views. 3. Moderate mitral and moderate to severe tricuspid regurgitation. 4. Agitated saline contrast study fails to identify intracardiac shunt. 5. Successful electrical DC cardioversion with 150 J of synchronized DC current which restored the sinus rhythm. 6. Patient tolerated the procedure well. Electronically signed by : Jeremy Melendrez, 01/01/2020 14:22:13
[2020-01-01 12:50] VITALS: BMI 25.9
[2020-01-01 13:11] VITALS: BP 142/84; PULSE 143; RESP 16; O2SAT 99
[2020-01-01 13:24] LABS: Basophils # 0.1 K/mm3 (0-0.2); Basophils % 1.2 % (0.1-2.0); Eosinophils # 0.2 K/mm3 (0.0-0.4); Eosinophils % 2.5 % (0.1-12.0); Hematocrit 39.4 % (37.0-47.0); Lymphocytes # 2.9 K/mm3 (0.7-4.5); Lymphocytes % 32.1 % (10-50); Mean Corpuscular HGB Conc 33.2 g/dL (31.8-35.4); Mean Corpuscular Hemoglobin 30.3 pg (27.0-31.2); Mean Corpuscular Volume 91.4 fl (81-99); Mean Platelet Volume 7.5 fl (7.4-10.4); Monocytes # 0.5 K/mm3 (0.1-1.0); Monocytes % 5.7 % (1.7-9.3); Neutrophils # 5.3 K/mm3 (1.8-7.8); Neutrophils % 58.4 % (37.0-80.0); Platelet Count 360 K/mm3 (142-424); Red Blood Count 4.31 M/mm3 (4.20-5.40); Red Cell Distribution Width 12.8 % (11.5-17.5); White Blood Count 9.1 K/mm3 (4.8-10.8)
[2020-01-01 13:30] LABS: Anion Gap 17.4 mEq/L (5-15); Blood Urea Nitrogen 26 mg/dl (7-17); Carbon Dioxide 28 mmol/L (22.0-30.0); Chloride 102 mmol/L (98-107); Creatinine Clearance Estimated 32 mL/min (50-200); Estimated Glomerular Filt Rate 36 ml/min (>60); GFR (African American) 43 ML/MIN (>60); Glucose 124 mg/dl (74-100); Potassium 3.4 mmoL/L (3.5-5.1); Sodium 144 mmol/L (136-145)
[2020-01-01 13:36] VITALS: BP 117/64; PULSE 60; RESP 16; O2SAT 98
--- NOTE | 2020-01-01 13:45 | ECG_ITS ---
APPROVED REPORT Exam: Resting ECG HR:55 bpm ECG Measurements Heart Rate 55 AXES DE 188 P 76 QRSd 72 QRS 34 QT 434 T 5 QTc 415 <Conclusion> Sinus bradycardia Nonspecific ST abnormality Abnormal ECG Electronically signed by : Vinay Uribe, 01/03/2020 08:08:56
[2020-01-01 13:55] VITALS: BP 97/53; PULSE 63; RESP 16; O2SAT 99
[2020-01-01 14:32] VITALS: BP 108/50; PULSE 60; RESP 16; O2SAT 99
== END 2020-01-01 14:34 | disposition home or self-care (01) ==
LOC: CATHLAB 12:38
PROVIDERS: PCP Family Medicine; Visit Provider Internal Medicine Cardiovascular Disease
DX: I48.0 Paroxysmal atrial fibrillation (principal)
CPT/HCPCS: 80048; 85025; 92960; 93005; 93312

== ENCOUNTER 2020-11-02 14:38 | Observation (INO) | payer MEDICARE, OTHER, SELFPAY ==
[2020-11-02] VITALS (23 sets, daily range): BP systolic 105–150; BP diastolic 47–93; PULSE 44–135; RESP 16–18; TEMP 36.3–36.5; O2SAT 95–100; BMI 26.6; BMI 24.5
--- NOTE | 2020-11-02 14:46 | ECG_ITS ---
APPROVED REPORT Exam: Resting ECG HR:123 bpm ECG Measurements Heart Rate 123 AXES QRSd 82 QRS -19 QT 314 T 162 QTc 449 Conclusion Atrial flutter with variable AV block Possible Anterior infarct, age undetermined Marked ST abnormality, possible inferolateral subendocardial injury Abnormal ECG Electronically signed by : Vinay Uribe, 11/06/2020 07:34:40
--- NOTE | 2020-11-02 15:01 | HMH.EDGENADL ---
ED Disposition Clinical Impression: Rapid atrial fibrillation Disposition: Admitted as Observation Condition on Discharge: Fair - Critical Care Critical Care Time: Yes Attestation: On 11/02/20, the high probability of a clinically significant, sudden or life threatening deterioration of the following system(s) required my full and direct attention, intervention and personal management. The time I documented below is in addition to time spent performing reported procedures but includes the following listed in this critical care notation. Total Critical Care Time: 30 Vital system(s) involved:: Circulatory Failure My critical care processes included: Assessment & monitoring of V/S, Initial and Re-exams, Data Review/Interpretation, Coordinating Care, Medication Orders and management, Documentation Medical Decision Making - Michael Inquiry Pt receiving controlled substance: No Vital Signs: 11/02/20 14:43 Temperature 97.7 F Temperature Source Oral Pulse Rate [Apical] 135 H Respiratory Rate 18 Blood Pressure [Right Arm] 143/86 H Blood Pressure Mean [Right Arm] 105 Blood Pressure Source [Right Arm] Automatic Cuff Blood Pressure Position [Right Arm] Sitting 02 Sat by Pulse Oximetry 99 Oxygen Delivery Method Room Air - Lab Data Lab Results 11/02/20 14:50: WBC 12.9 H, RBC 4.66, Hgb 13.3, Hct 40.4, MCV 86.6, MCH 28.6, MCHC 33.1, RDW 13.6, Plt Count 323, MPV 6.9 L, Neut % (Auto) 63.8, Lymph % (Auto) 27.8, [place] % (Auto) 6.0, Eos % (Auto) 1.7, Baso % (Auto) 0.7, Neut # (Auto) 8.2 H, Lymph # (Auto) 3.6, [place] # (Auto) 0.8, Eos # (Auto) 0.2, Baso # (Auto) 0.1 11/02/20 14:50: Sodium 134 L, Potassium 3.6, Chloride 99, Carbon Dioxide 27, Anion Gap 11.6, BUN 25 H, Creatinine 1.40 H, Estimated Creat Clear 34, Estimated GFR 36 L, Est GFR ( Amer) 43 L, Glucose 113 H, Calcium 9.1, Troponin I 0.02 Result diagrams: 11/02/20 14:50 11/02/20 14:50 Orders (Tests/Meds): ED MEDICATIONS Generic Name Dose Route Start Last Admin Trade Name Freq PRN Reason Stop Dose Admin Diltiazem HCl 100 mg/ Sodium 100 mls @ 5 mls/hr 11/02/20 15:13 11/02/20 15:14 Chloride IV 12/02/20 15:12 5 mls/hr .Q20H HORTENCIA Administration Protocol Discontinued Medications Generic Name Dose Route Start Last Admin Trade Name Freq PRN Reason Stop Dose Admin Diltiazem HCl 10 mg 11/02/20 14:58 11/02/20 15:14 Diltiazem 25mg/5ml Vial IV 11/02/20 14:59 10 mg ONCE ONE Administration ORDERS Category Date Time Status Troponin I Q3H Lab 11/02/20 17:50 Received Troponin I Q3H Lab 11/02/20 21:00 Ordered - Radiology Data #1 Image(s): Chest Image Reviewed: Yes I have reviewed radiologist's interpretation PROCEDURE: XR CHEST PORTABLE CLINICAL HISTORY: rapid afib COMPARISON: 11/28/2019 FINDINGS: The cardiomediastinal silhouette and pulmonary vascularity are within normal limits. The lungs are clear without infiltrates, suspicious nodules, or pleural effusions. There is a small hiatal hernia. No acute bony findings. Overlying metallic artifacts consistent with monitor devices. IMPRESSION: No acute findings. Dictated by: Brad Neil MD 11/02/2020 15:40 Brad Neil MD in [place] 11/02/2020 15:40 - ECG Data Tracing #1 EKG interpreted by José Manuel Courtney MD: Rhythm: Atrial fibrillation/flutter, rapid ventricular response Rate: 123 [place]: normal Ectopy: none Conduction: normal ST Segment Changes: Nonspecific T Wave Changes: Nonspecific Q Waves: none No evidence of acute ischemia or injury Baseline wander present, but I consider the EKG adequate for accurate interpretation. - Physician Consults Physician Consulted: Raymond Time: 16:30 Reason -: Admission Comment/Response: Agrees to admit the patient to the hospital. We discussed the patient's clinical information, including history, exam, laboratory and radiology results and ED course. Per hospital procedure, I will write temporar
[2020-11-02 15:10] LABS: Basophils # 0.1 K/mm3 (0-0.2); Basophils % 0.7 % (0.1-2.0); Eosinophils # 0.2 K/mm3 (0.0-0.4); Eosinophils % 1.7 % (0.1-12.0); Hematocrit 40.4 % (37.0-47.0); Hemoglobin 13.3 g/dL (12.2-16.2); Lymphocytes # 3.6 K/mm3 (0.7-4.5); Lymphocytes % 27.8 % (10-50); Mean Corpuscular HGB Conc 33.1 g/dL (31.8-35.4); Mean Corpuscular Hemoglobin 28.6 pg (27.0-31.2); Mean Corpuscular Volume 86.6 fl (81-99); Mean Platelet Volume 6.9 fl (7.4-10.4); Monocytes # 0.8 K/mm3 (0.1-1.0); Neutrophils # 8.2 K/mm3 (1.8-7.8); Neutrophils % 63.8 % (37.0-80.0); Platelet Count 323 K/mm3 (142-424); Red Blood Count 4.66 M/mm3 (4.20-5.40); Red Cell Distribution Width 13.6 % (11.5-17.5); White Blood Count 12.9 K/mm3 (4.8-10.8)
[2020-11-02 15:20] LABS: Chloride 99 mmol/L (98-107); Potassium 3.6 mmoL/L (3.5-5.1); Sodium 134 mmol/L (136-145)
--- NOTE | 2020-11-02 15:22 | PC.NURSE ---
rad at BS for portable xray
[2020-11-02 15:23] LABS: Anion Gap 11.6 mEq/L (5-15); Blood Urea Nitrogen 25 mg/dl (7-17); Carbon Dioxide 27 mmol/L (22.0-30.0); Creatinine Clearance Estimated 34 mL/min (50-200); Estimated Glomerular Filt Rate 36 ml/min (>60); GFR (African American) 43 ML/MIN (>60)
[2020-11-02 15:24] LABS: Calcium 9.1 mg/dl (8.4-10.2); Glucose 113 mg/dl (74-100)
[2020-11-02 15:36] LABS: Troponin I 0.02 ng/ml (0.00-0.034)
--- NOTE | 2020-11-02 16:34 | PC.NURSE ---
spoke with DR. Andrade for admission
--- NOTE | 2020-11-02 16:35 | PC.NURSE ---
speaking with Dr. Blevins
[2020-11-02 17:33] LABS: Adenovirus,PCR Not Detected (NotDetected); Bordetella Pertussis Not Detected (NotDetected); Chlamydophila Pneumoniae, PCR Not Detected (NotDetected); Coronavirus 19, PCR Not Detected (NotDetected); Coronavirus 229E Not Detected (NotDetected); Coronavirus NL63 Not Detected (NotDetected); Coronavirus OC43 Not Detected (NotDetected); Coronovirus HKU1,PCR Not Detected (NotDetected); Human Metapneumovirus Not Detected (NotDetected); Influenza A, PCR Not Detected (NotDetected); Influenza AH1, 2009 Not Detected (NotDetected); Influenza AH1, PCR Not Detected (NotDetected); Influenza AH3,PCR Not Detected (NotDetected); Influenza B, PCR Not Detected (NotDetected); Mycoplasma Pneumoniae, PCR Not Detected (NotDetected); Parainfluenza 1, PCR Not Detected (NotDetected); Parainfluenza 2, PCR Not Detected (NotDetected); Parainfluenza 3, PCR Not Detected (NotDetected); Parainfluenza 4, PCR Not Detected (NotDetected); Respiratory Syncytial Virus Not Detected (NotDetected); Rhinovirus/Enterovirus Not Detected (NotDetected)
--- NOTE | 2020-11-02 17:56 | PC.NURSE ---
called for supper tray
[2020-11-02 18:13] LABS: Troponin I 0.02 ng/ml (0.00-0.034)
--- NOTE | 2020-11-02 19:17 | HMH.ACPN2 ---
Internal Medicine - PN: Subj *Date: 11/02/20 *Time: 19:17 Interval history: This 84-year-old white female was admitted with rapid atrial fib. She was seen in the office of [facility] in [place] today for follow-up for some tachycardia and was found to be at a heart rate of 130. She was in no acute distress. She was sent to the emergency room [facility] where she received a diltiazem drip to help control her rate. She is admitted for further evaluation and treatment. She was admitted to [facility] in November 2019 with atrial fib. She was managed with Cardizem metoprolol and Xarelto. She has remained stable through that time on 50 mg of Xarelto, metoprolol ER 50 mg, diltiazem ER 240 mg. On October 12, 2020 the Xarelto was discontinued when she developed severe hematuria. At that point she was treated with some cefuroxime. On 10/15/2020 in follow-up Xarelto 10 mg was reinstituted. On October 20, 2020 she developed a rash which appeared quite allergic. She was continued on Xarelto and treated with prednisone at that point. With persistence of the rash on 10/21/2020 the Xarelto was once again discontinued. Her rash began to improve with further dosing of prednisone and antihistamines. On 10/22/2020 her heart rate was 68 she was on Sanjana 180 and aspirin 81 mg was started in lieu of the Xarelto. On 10/29/2020 her rash improved significantly but it when she was seen in the office her heart rate was 122. Despite the rapid heart rate she was in no acute distress. Additional metoprolol was recommended at that point and she was seen in follow-up on 11/02/2020 but today her heart rate was 130 and that is when she was sent to the emergency room for further evaluation and treatment as described above. Exam Vital signs and Labs for Last 24 Hours: Temp Pulse Resp BP Pulse Ox 97.7 F 88 16 106/54 L 95 11/02/20 14:43 11/02/20 19:08 11/02/20 19:08 11/02/20 19:08 11/02/20 19:08 Laboratory Results - last 24 hr 11/02/20 14:50: WBC 12.9 H, RBC 4.66, Hgb 13.3, Hct 40.4, MCV 86.6, MCH 28.6, MCHC 33.1, RDW 13.6, Plt Count 323, MPV 6.9 L, Neut % (Auto) 63.8, Lymph % (Auto) 27.8, [place] % (Auto) 6.0, Eos % (Auto) 1.7, Baso % (Auto) 0.7, Neut # (Auto) 8.2 H, Lymph # (Auto) 3.6, [place] # (Auto) 0.8, Eos # (Auto) 0.2, Baso # (Auto) 0.1 11/02/20 14:50: Sodium 134 L, Potassium 3.6, Chloride 99, Carbon Dioxide 27, Anion Gap 11.6, BUN 25 H, Creatinine 1.40 H, Estimated Creat Clear 34, Estimated GFR 36 L, Est GFR ( Amer) 43 L, Glucose 113 H, Calcium 9.1, Troponin I 0.02 11/02/20 16:49: Chlamy pneumoniae PCR Not detected, Adenovirus (PCR) Not detected, B. pertussis DNA (PCR) Not detected, Coronavirus OC43 (PCR) Not detected, Coronavirus HKU1 (PCR) Not detected, Coronavirus 229E (PCR) Not detected, SARS-CoV-2 (PCR) Not detected, Coronavirus NL63 (PCR) Not detected, Human Metapneumovir PCR Not detected, Influenza A (H1) PCR Not detected, Influ A (H1N1/09) PCR Not detected, Influenza A (H3) PCR Not detected, Influenza Type A (PCR) Not detected, Influenza Type B (PCR) Not detected, M. pneumoniae (PCR) Not detected, Parainfluenza 1 (PCR) Not detected, Parainfluenza 2 (PCR) Not detected, Parainfluenza 3 (PCR) Not detected, Parainfluenza 4 (PCR) Not detected, RSV (PCR) Not detected, Entero/Rhino (PCR) Not detected 11/02/20 17:50: Troponin I 0.02 I & O for Last 24 hours: Intake & Output 10/31/20 11/01/20 11/02/20 11/03/20 11:59 11:59 11:59 11:59 Weight 160 lb - Constitutional no acute distress - *Routine HEENT Exam Head: Present: normocephalic Eye: Present: PERRL ENT: Present: mucous membranes moist - *Routine Neck Exam Absent: JVD - *Routine Respiratory Exam Present: CTA bilaterally. Absent: rales, respiratory distress - *Routine Cardiovascular Exam Present: tachycardia (130.) - *Routine Abdominal Exam Present: soft. Absent: tenderness - *Routine Extremities Exam Present: edema (Trace to 1+.) Ass
--- NOTE | 2020-11-02 19:19 | PC.NURSE ---
report called to germaine uriostegui rn on second floor at this time, states she will send staff down to get pt.
--- NOTE | 2020-11-02 19:37 | PC.NURSE ---
patient up to floor via wheel chair.
--- NOTE | 2020-11-02 20:42 | PC.NURSE ---
Attempted to call daughter Wanda to verify meds. No answer.
[2020-11-02 21:37] LABS: Troponin I 0.02 ng/ml (0.00-0.034)
--- NOTE | 2020-11-02 23:37 | PC.NURSE ---
VSS. pt educated on safety precautions including use of call light and non-slip socks, patient verbalized understanding. pt is alert and oriented, calm and cooperative. cardizem drip d/c'd R/T heart rate <60 per physician request. heart rate is stable at 63bpm. frequent rounding completed to ensure pt satisfaction and safety. call light within reach. will continue to monitor.
[2020-11-03] VITALS (12 sets, daily range): BP systolic 95–141; BP diastolic 39–95; PULSE 57–150; RESP 14–23; TEMP 36.5–37.1; O2SAT 95–99; BMI 24.5
--- NOTE | 2020-11-03 07:40 | HMH.CNCARD ---
History of Present Illness Consult date: 11/03/20 Requesting physician: Maurice Andrade Chief complaint: Rapid atrial fibrillation History of present illness: ANA (12/2019)Conclusion 1. Biatrial enlargement as described above, no thrombus seen in the left atrium or left atrial appendage. 2. Normal left ventricular size preserved left ventricular systolic function. No regional wall motion abnormalities in the obtained views. 3. Moderate mitral and moderate to severe tricuspid regurgitation. 4. Agitated saline contrast study fails to identify intracardiac shunt. 5. Successful electrical DC cardioversion with 150 J of synchronized DC current which restored the sinus rhythm. 6. Patient tolerated the procedure well. [facility] History Medical History: Reports:: Arrhythmia, Atrial Fibrillation, Hyperlipidemia, Hypertension Denies:: Cancer, Diabetes Mellitus Type 1, Diabetes Mellitus Type 2, MRSA *Have you ever received a pneumonia vaccine?: No *Have you received a flu vaccine this season?: No Other Surgeries: Yes: No Previous Surgery Amputation: No - *Social History Last grade of school completed: High school graduate Smoking Status: Never smoker Alcohol Intake: never *Occupational Status:: retired Housing: house Household Members: none *Travel in the last 8 weeks: None Family Hx:: Stroke Meds Home Medications Medication Instructions Recorded Confirmed Type Donepezil HCl [Aricept 5mg 5 mg PO HS 11/28/19 11/02/20 History Tablet] Triamterene/Hydrochlorothiazid 0.5 tab PO DAILY 11/28/19 11/02/20 History [Triamterene-Hctz 37.5-25 mg Tb] Atorvastatin Calcium [Lipitor 20mg 20 mg PO HS #30 tab 12/01/19 11/02/20 Rx Tab] dilTIAZem HCl [Diltiazem 240mg 240 mg PO DAILY #30 c24 12/01/19 11/02/20 Rx 24Hr ER Cap] aspirin 81 mg tablet,delayed 81 mg PO HS 12/11/19 11/02/20 History release quetiapine 25 mg tablet 25 mg PO HS tab 01/13/20 11/03/20 History Fexofenadine HCl [Sanjana 180 mg PO DAILY 11/03/20 11/03/20 History Allergy] Metoprolol Succinate [Toprol XL 100 mg PO DAILY #30 tab.er.24h 05/27/21 Rx 100mg tablet] Allergies Allergy/AdvReac Type Severity Reaction Status Date / Time Penicillins Allergy Verified 11/02/20 20:15 Exam Vital signs and Labs for Last 24 Hours: Temp Pulse Resp BP Pulse Ox 98.8 F 77 14 141/95 H 98 11/03/20 04:00 11/03/20 06:00 11/03/20 06:00 11/03/20 06:00 11/03/20 06:00 Laboratory Results - last 24 hr 11/02/20 14:50: WBC 12.9 H, RBC 4.66, Hgb 13.3, Hct 40.4, MCV 86.6, MCH 28.6, MCHC 33.1, RDW 13.6, Plt Count 323, MPV 6.9 L, Neut % (Auto) 63.8, Lymph % (Auto) 27.8, [place] % (Auto) 6.0, Eos % (Auto) 1.7, Baso % (Auto) 0.7, Neut # (Auto) 8.2 H, Lymph # (Auto) 3.6, [place] # (Auto) 0.8, Eos # (Auto) 0.2, Baso # (Auto) 0.1 11/02/20 14:50: Sodium 134 L, Potassium 3.6, Chloride 99, Carbon Dioxide 27, Anion Gap 11.6, BUN 25 H, Creatinine 1.40 H, Estimated Creat Clear 34, Estimated GFR 36 L, Est GFR ( Amer) 43 L, Glucose 113 H, Calcium 9.1, Troponin I 0.02 11/02/20 16:49: Chlamy pneumoniae PCR Not detected, Adenovirus (PCR) Not detected, B. pertussis DNA (PCR) Not detected, Coronavirus OC43 (PCR) Not detected, Coronavirus HKU1 (PCR) Not detected, Coronavirus 229E (PCR) Not detected, SARS-CoV-2 (PCR) Not detected, Coronavirus NL63 (PCR) Not detected, Human Metapneumovir PCR Not detected, Influenza A (H1) PCR Not detected, Influ A (H1N1/09) PCR Not detected, Influenza A (H3) PCR Not detected, Influenza Type A (PCR) Not detected, Influenza Type B (PCR) Not detected, M. pneumoniae (PCR) Not detected, Parainfluenza 1 (PCR) Not detected, Parainfluenza 2 (PCR) Not detected, Parainfluenza 3 (PCR) Not detected, Parainfluenza 4 (PCR) Not detected, RSV (PCR) Not detected, Entero/Rhino (PCR) Not detected 11/02/20 17:50: Troponin I 0.02 11/02/20 21:08: Troponin I 0.02 I & O for Last 24 hours: Intake & Output 10/31/20 11/01/20 05
--- NOTE | 2020-11-03 07:42 | CA_ITS ---
APPROVED REPORT EXAM: Comprehensive 2D, Doppler, and color-flow Echocardiogram Baby Stroller Rental Clerk: Aster Nazario CRT Ht: 5 ft 4 in Wt: 147lbs BSA: 1.72 BP: 122/38 mmHg Indications: Palpitations, Hyperlipidemia, Hypertension/HDD Atrial Fibrillation, Palpitations, Hypertension/HDD 2D Dimensions LVOT 1.98 cm (M/F) 1.5-2.5 LA Volume 67.70 mL LA Volume Index 39.40 mL/m2 (M/F) 16-34 M-Mode Dimensions RVDd 2.45 cm (0.9-2.6) LA Diam 4.45 cm (1.9-4.0) LVDd 3.96 cm (3.5-5.7) Ao Diam 3.09 cm (2.0-3.7) LVDs 2.62 cm (3.5-5.7) IVSd 1.38 cm (0.6-1.1) PWd 0.97 cm (0.6-1.1) EF (Teich) 63.30% FS 33.80% EDV (Teich) 68.30 mL TAPSE 1.65 (<1.7) ESV (Teich) 25.10 mL Aortic Valve AO Peak GR. 6.50 mmHg Pulmonary Valve PV Peak Velocity 179.00 (50-150 cm/s) Tricuspid Valve TR P. Velocity 261.00 cm/s RAP Estimate 10.00 mmHg RVSP 37.20 mmHg Left Ventricle Left atrium is moderately enlarged, left ventricle is normal size, mild concentric left ventricular hypertrophy, visually estimated ejection fraction 55% with no regional wall motion abnormality, diastolic parameters are inconclusive. Right Ventricle Right atrium and right ventricle is normal size and contractility. Aortic Valve Aortic valve is minimally thickened and fibrosed, there is no aortic stenosis or aortic insufficiency. Mitral Valve Mitral valve is grossly normal, there is trace mitral regurgitation. Tricuspid Valve Tricuspid grossly normal, there is trace tricuspid regurgitation, calculated right ventricular systolic pressure within normal range. Pulmonic Valve Pulmonic valve is poorly visualized. Great Vessels Aortic root is normal size. Pericardium No significant pericardial effusion noted. Conclusion 1. Moderately enlarged left atrium, normal left ventricular size, mild concentric left ventricular hypertrophy, visually estimated ejection fraction 55% with no regional wall motion abnormality, diastolic parameters are inconclusive. 2. Trace mitral and tricuspid regurgitation, calculated ventricular systolic pressure within normal range. 3. No significant pericardial effusion noted. Electronically signed by : Jeremy Melendrez, 11/04/2020 16:10:48
--- NOTE | 2020-11-03 08:28 | HMH.HP ---
*Admission Date: 11/02/20 *Chief complaint: Atrial fib with rapid ventricular response *History of present illness: As per Dr. Andrade: This 84-year-old white female was admitted with rapid atrial fib. She was seen in the office of [facility] in [place] today for follow-up for some tachycardia and was found to be at a heart rate of 130. She was in no acute distress. She was sent to the emergency room [facility] where she received a diltiazem drip to help control her rate. She is admitted for further evaluation and treatment. She was admitted to [facility] in November 2019 with atrial fib. She was managed with Cardizem metoprolol and Xarelto. She has remained stable through that time on 50 mg of Xarelto, metoprolol ER 50 mg, diltiazem ER 240 mg. On October 12, 2020 the Xarelto was discontinued when she developed severe hematuria. At that point she was treated with some cefuroxime. On 10/15/2020 in follow-up Xarelto 10 mg was reinstituted. On October 20, 2020 she developed a rash which appeared quite allergic. She was continued on Xarelto and treated with prednisone at that point. With persistence of the rash on 10/21/2020 the Xarelto was once again discontinued. Her rash began to improve with further dosing of prednisone and antihistamines. On 10/22/2020 her heart rate was 68 she was on Sanjana 180 and aspirin 81 mg was started in lieu of the Xarelto. On 10/29/2020 her rash improved significantly but it when she was seen in the office her heart rate was 122. Despite the rapid heart rate she was in no acute distress. Additional metoprolol was recommended at that point and she was seen in follow-up on 11/02/2020 but today her heart rate was 130 and that is when she was sent to the emergency room for further evaluation and treatment as described above. Above as per Dr. Andrade Noted also TSH done to 2019 was 1.28. Diltiazem drip discontinued last p.m. due to slow heart rate. This a.m. atrial fibrillation with varying ventricular response anywhere from 90 up to 150. P.o. Cardizem and metoprolol were given at this time due to rapid heart rate. This a.m. patient states she feels nervous. She feels this is the cause of her atrial fib. She really is wanting to go home. She denies chest pain and shortness of breath. She states she eats without difficulty. She ambulates without problems and denies dizziness. She cannot tell that her heart is beating irregularly. Laboratory data on admission revealed a white blood cell count of 12,900 with a hemoglobin of 13.3 and hematocrit of 40.4. Blood chemistries show sodium of 134 and potassium of 3.6. BUN is 25 and creatinine is 1.4. Troponin I is normal x3. Chest x-ray shows no acute changes. [facility] History Medical History: Reports:: Anxiety, Arrhythmia, Atrial Fibrillation, Hyperlipidemia, Hypertension Denies:: Cancer, Diabetes Mellitus Type 1, Diabetes Mellitus Type 2, Gastroesophageal Reflux Disease(GERD), MRSA *Have you ever received a pneumonia vaccine?: No *Have you received a flu vaccine this season?: No Other Medical History: Denies: Hypothyroidism Other Surgeries: Yes: No Previous Surgery Amputation: No - *Social History Last grade of school completed: High school graduate Smoking Status: Never smoker Alcohol Intake: never *Occupational Status:: retired Housing: house Household Members: none *Travel in the last 8 weeks: None Family Hx:: Stroke Review of Systems - Constitutional Denies fatigue, Denies fever(s), Denies lack of energy - Eyes Denies change in vision - ENT Denies ear pain, Denies sore throat - *Cardiovascular Reports irregular heart rhythm (Although she cannot feel this), Denies chest pain, Denies shortness of breath, Denies generalized swelling, Denies rapid, pounding, or irregular heartbeat, Denies foot swelling - *Respiratory Denies chest congestion, Denies cough, Denies shortness of breath - *Gastrointestinal Denies abdominal aleyda
--- NOTE | 2020-11-03 08:45 | HMH.CNCARD ---
History of Present Illness Consult date: 11/03/20 Requesting physician: Maurice Andrade Consult reason: atrial fibrillation Chief complaint: Atrial fibrillation with RVR History of present illness: 84-year-old female presented to PCP office yesterday with rapid heart rate. Patient was noted to have atrial fibrillation with RVR. Patient does have history of atrial fibrillation but has been in sinus bradycardia to sinus rhythm since being cardioverted in December 2019. Patient had underwent a ANA for moderate mitral and moderate to severe tricuspid regurgitation along with successful cardioversion. Patient was directly sent to the ER from PCPs office for evaluation. Patient was placed on Cardizem drip at that time. Patient no longer has Cardizem drip infusing. Patient is on Cardizem 240 mg daily p.o. and metoprolol 50 mg daily for heart rate and rhythm control. Patient had been on Xarelto in the past but due to having a new allergic reaction, PCP had stopped the Xarelto. Patient does take an aspirin daily. After consideration regarding whether it was a true reaction to Xarelto, PCP restarted Xarelto. Patient denies chest pain, tightness or pressure. Patient denies shortness of breath. Patient states she just seems to be very anxious. Patient feels that because of this anxiety this is causing her heart rate to fluctuate. Will defer management of anxiety to PCP. Patient denies dizziness. Patient does have history of atrial fibrillation, hypertension and hyperlipidemia. Patient does see this cardiology group. Last appointment with cardiology was in May 2020 which no complaints were noted. Patient was in sinus bradycardia to sinus rhythm at that time. Initial ED work-up was performed. Initial EKG performed revealed atrial fibrillation/a flutter with a heart rate of 123 bpm. There was no evidence of acute ischemic injury noted on EKG. quality assurance monitor body this morning reveals atrial fibrillation with a heart rate ranging from 90-118 bpm. Patient was started on Cardizem 240 mg daily p.o. and metoprolol 50 mg daily p.o. patient has received first dose. Serial troponins noted as 0.02. ANA (12/2019) 1. Biatrial enlargement as described above, no thrombus seen in the left atrium or left atrial appendage. 2. Normal left ventricular size preserved left ventricular systolic function. No regional wall motion abnormalities in the obtained views. 3. Moderate mitral and moderate to severe tricuspid regurgitation. 4. Agitated saline contrast study fails to identify intracardiac shunt. 5. Successful electrical DC cardioversion with 150 J of synchronized DC current which restored the sinus rhythm. 6. Patient tolerated the procedure well. Discussed plan of care with Dr. Blevins. Obtain echocardiogram to assess LV function and valve status. We are aware that patient does have severe TR and moderate MR that was last noted from a ANA in December 2019. Will defer management of anxiety to PCP. Will increase metoprolol succinate to 100 mg daily for better heart rate control. Will give digoxin 0.5 mg IV x1 dose now for heart rhythm. Will start patient on daily dose of digoxin .125mg p.o. daily for rhythm and heart rate control. Pending on the results of the echocardiogram, medication and treatment therapies may be recommended. We will also obtain TSH, free T4 and total 3 to evaluate for hyper or hypo thyroidism. Please continue to monitor patient status. Any changes in patient's status please notify cardiology. Thank you for allowing cardiology to participate in the care of this patient. [facility] History I have reviewed the patient's past medical history: Yes Medical History: Reports:: Anxiety, Arrhythmia, Atrial Fibrillation, Hyperlipidemia, Hypertension Denies:: Cancer, Diabetes Mellitus Type 1, Diabetes Mellitus Type 2, Gastroesophageal Reflux Disease(GERD), MRSA *Have you ever received a pneumonia vaccine?: No *Have you received a flu vaccine
[2020-11-03 09:39] LABS: Thyroid Stimulating Hormone 0.76 uIU/mL (0.465-4.68)
[2020-11-03 10:26] LABS: T4 (Thyroxine) 7.5 ug/dl (5.53-11.0)
--- NOTE | 2020-11-03 10:46 | HMH.PHAINT ---
verified home medication list using list from [facility] and [facility] office
--- NOTE | 2020-11-03 15:40 | PC.NURSE ---
Patient has been pleasant and cooperative this shift, remains in atrial fibrillation with controlled rate on PO medications, echo completed today, voids per BR, ambulates with standby assist, alert and oriented x3, perrla, abd soft and nontender, active bowel sounds in all quads, peripheral pulses intact, no edema noted, lungs cta, on RA, no s/s of distress noted, will continue to monitor.
--- NOTE | 2020-11-03 21:10 | PC.NURSE ---
She answers questions appropriately but will then repeat a question of which was just answered. Her speech is clear. Afib/aflutter on telemetry. She continues on RA. She denies pain and SOA. She reports her last BM was on 11/02/20. She ambulates independently with steady gait. Safety set and call light in reach.
[2020-11-04] VITALS: BP 107/63; PULSE 70; PULSE 83; RESP 20; TEMP 36.8; O2SAT 97
--- NOTE | 2020-11-04 | ECG_ITS ---
APPROVED REPORT Exam: Resting ECG HR:88 bpm ECG Measurements Heart Rate 88 AXES QRSd 84 QRS 24 QT 370 T 5 QTc 447 Conclusion Atrial fibrillation Nonspecific ST and T wave abnormality, probably digitalis effect Abnormal ECG Electronically signed by : Vinay Uribe, 11/06/2020 07:30:04
[2020-11-04 04:00] VITALS: PULSE 50
[2020-11-04 05:14] VITALS: BMI 24.3
[2020-11-04 05:53] LABS: Triiodothyronine (T3) Free 2.1 pg/mL (2.0-4.4)
[2020-11-04 08:00] VITALS: BP 120/54; PULSE 75; PULSE 91; RESP 17; TEMP 36.7; O2SAT 100
--- NOTE | 2020-11-04 08:47 | HMH.ACPN2 ---
Internal Medicine - PN: Subj *Date: 11/04/20 *Time: 08:47 Interval history: Patient states she feels better today. She denies any pain or shortness of breath. Her heart rate has remained controlled. She states she slept well last night and ate a good breakfast this morning. She wants to go home today. Exam Vital signs and Labs for Last 24 Hours: Temp Pulse Resp BP Pulse Ox 98.0 F 91 H 17 120/54 L 100 11/04/20 08:00 11/04/20 08:00 11/04/20 08:00 11/04/20 08:00 11/04/20 08:00 Laboratory Results - last 24 hr 11/02/20 08:57: TSH 0.76 11/02/20 17:50: Thyroxine (T4) 7.5 11/02/20 17:50: Free T3 2.1 I & O for Last 24 hours: Intake & Output 11/01/20 11/02/20 11/03/20 11/04/20 11:59 11:59 11:59 11:59 Intake Total 283 / 283 850 / 850 Balance 283 / 283 850 / 850 Weight 147 lb 4 oz 146 lb - Constitutional no acute distress - *Routine Respiratory Exam Present: CTA bilaterally - *Routine Cardiovascular Exam Present: irregular rhythm (Controlled rate) - *Routine Abdominal Exam Present: soft, normoactive bowel sounds. Absent: tenderness - *Routine Extremities Exam Absent: cyanosis, clubbing, edema - *Routine Skin Exam Present: warm. Absent: rash - *Routine Neurological Exam Present: alert, oriented X3 Assessment and Plan (1) Allergy to drug Status: Acute Category: Medical Code(s): Z88.9 - Allergy status to unspecified drugs, medicaments and biological substances (2) Atrial fibrillation with rapid ventricular response Status: Acute Category: Medical Code(s): I48.91 - Unspecified atrial fibrillation (3) HTN (hypertension) Status: Acute Qualifiers: Hypertension type: essential hypertension Qualified Code(s): I10 - Essential (primary) hypertension Category: Medical Code(s): I10 - Essential (primary) hypertension - Assessment and plan all Dx Assessment and Plan for all problems:: Cardiology to follow. Will discuss disposition plans with Dr. Andrade.
[2020-11-04 08:48] VITALS: PULSE 99
--- NOTE | 2020-11-04 09:50 | HMH.PNCARD ---
Subjective Date: 11/04/20 Time: 09:45 Principal diagnosis: afib with rvr Interval history: This is a 89-year-old white female who is admitted to the hospital from her primary care provider's office due to atrial fibrillation with RVR. The patient denied any complaints with the A. fib with RVR. She denies any palpitations or racing of the heart. She denies any chest pain or pressure. She denies any shortness of breath or edema. She denies any fever, chills, nausea, vomiting, diarrhea, PND or orthopnea. The patient states that she did feel very anxious and this has improved but she still feels slightly anxious today but is feeling much better. The patient is now rate controlled on oral digoxin, diltiazem ER and metoprolol XL. The patient states that she is ready to go home today. Exam Vital signs and Labs for Last 24 Hours: Temp Pulse Resp BP Pulse Ox 98.0 F 99 H 17 120/54 L 100 11/04/20 08:00 11/04/20 08:48 11/04/20 08:00 11/04/20 08:00 11/04/20 08:00 Laboratory Results - last 24 hr 11/02/20 17:50: Thyroxine (T4) 7.5 11/02/20 17:50: Free T3 2.1 I & O for Last 24 hours: Intake & Output 11/01/20 11/02/20 11/03/20 11/04/20 23:59 23:59 23:59 23:59 Intake Total 610 / 730 490 / 490 Balance 33 610 / 730 490 / 490 Weight 147 lb 4 oz 147 lb 4 oz 146 lb Narrative: Telemetry strip is atrial fibrillation with a rate of 76. Preliminary echocardiogram shows an ejection fraction of 50 to 55% with mild MR mild to moderate TR. - Constitutional no acute distress, average body habitus - *Routine HEENT Exam Head: Present: normocephalic, atraumatic Eye: Present: EOMI, PERRL ENT: Present: mucous membranes moist - *Routine Neck Exam Present: supple, full ROM, normal carotid upstroke. Absent: JVD, carotid bruit, lymphadenopathy - *Routine Respiratory Exam Present: CTA bilaterally - *Routine Cardiovascular Exam Present: Normal S1, Normal S2, murmur, irregularly irregular - *Routine Abdominal Exam Present: soft, normoactive bowel sounds. Absent: tenderness, distended - *Routine Extremities Exam Present: full ROM, pulses intact, normal capillary refill. Absent: cyanosis, clubbing, edema - *Routine Skin Exam Present: intact, warm. Absent: erythema, rash - *Routine Neurological Exam Present: alert, oriented X3, CN II-XII intact. 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 The patient was admitted to the hospital with atrial fibrillation with RVR. She does have a history of having atrial fibrillation before it had been converted back to sinus rhythm with cardioversion. She was at her primary care provider's office yesterday and felt anxious and was found to be in atrial fibrillation with RVR. She did rate control on a diltiazem drip. She is now on oral diltiazem ER as well as oral digoxin and metoprolol with rate control. We will continue these medications on an outpatient basis. 2. The patient will remain on Xarelto for long-term anticoagulation. She denies any bleeding. The patient advised to call our office immediately with any signs of bleeding or report to the emergency department. She verbalized understanding. 3. Her blood pressures well controlled. 4. Her LDL goal is less than 100. She is on a statin. 5. The patient does report that she has had a lot of stress at home and has been anxious. She thinks that this is why she went back into atrial fibrillation. Will defer management of this to her primary care provider. 6. Her preliminary echocardiogram shows an eject
[2020-11-04 10:42] LABS: Basophils # 0.1 K/mm3 (0-0.2); Basophils % 1.1 % (0.1-2.0); Eosinophils # 0.3 K/mm3 (0.0-0.4); Eosinophils % 3.1 % (0.1-12.0); Hematocrit 38.8 % (37.0-47.0); Hemoglobin 12.8 g/dL (12.2-16.2); Lymphocytes # 2.1 K/mm3 (0.7-4.5); Lymphocytes % 25.3 % (10-50); Mean Corpuscular HGB Conc 33.1 g/dL (31.8-35.4); Mean Corpuscular Hemoglobin 28.5 pg (27.0-31.2); Mean Corpuscular Volume 86.1 fl (81-99); Mean Platelet Volume 7.8 fl (7.4-10.4); Monocytes # 0.5 K/mm3 (0.1-1.0); Monocytes % 6.2 % (1.7-9.3); Neutrophils # 5.4 K/mm3 (1.8-7.8); Neutrophils % 64.3 % (37.0-80.0); Platelet Count 275 K/mm3 (142-424); Red Blood Count 4.51 M/mm3 (4.20-5.40); Red Cell Distribution Width 13.7 % (11.5-17.5); White Blood Count 8.5 K/mm3 (4.8-10.8)
[2020-11-04 10:53] LABS: Anion Gap 7.3 mEq/L (5-15); Blood Urea Nitrogen 28 mg/dl (7-17); Carbon Dioxide 33 mmol/L (22.0-30.0); Chloride 100 mmol/L (98-107); Creatinine Clearance Estimated 33 mL/min (50-200); Estimated Glomerular Filt Rate 39 ml/min (>60); GFR (African American) 47 ML/MIN (>60); Glucose 98 mg/dl (74-100); Potassium 4.3 mmoL/L (3.5-5.1); Sodium 136 mmol/L (136-145)
--- NOTE | 2020-11-04 15:07 | HMH.DCSUM ---
General - General Admission date:: 11/02/20 Discharge date: 11/04/20 HPI HPI: As per Dr. Andrade: This 84-year-old white female was admitted with rapid atrial fib. She was seen in the office of [facility] in [place] today for follow-up for some tachycardia and was found to be at a heart rate of 130. She was in no acute distress. She was sent to the emergency room [facility] where she received a diltiazem drip to help control her rate. She is admitted for further evaluation and treatment. She was admitted to [facility] in November 2019 with atrial fib. She was managed with Cardizem metoprolol and Xarelto. She has remained stable through that time on 50 mg of Xarelto, metoprolol ER 50 mg, diltiazem ER 240 mg. On October 12, 2020 the Xarelto was discontinued when she developed severe hematuria. At that point she was treated with some cefuroxime. On 10/15/2020 in follow-up Xarelto 10 mg was reinstituted. On October 20, 2020 she developed a rash which appeared quite allergic. She was continued on Xarelto and treated with prednisone at that point. With persistence of the rash on 10/21/2020 the Xarelto was once again discontinued. Her rash began to improve with further dosing of prednisone and antihistamines. On 10/22/2020 her heart rate was 68 she was on Sanjana 180 and aspirin 81 mg was started in lieu of the Xarelto. On 10/29/2020 her rash improved significantly but it when she was seen in the office her heart rate was 122. Despite the rapid heart rate she was in no acute distress. Additional metoprolol was recommended at that point and she was seen in follow-up on 11/02/2020 but today her heart rate was 130 and that is when she was sent to the emergency room for further evaluation and treatment as described above. Above as per Dr. Andrade Noted also TSH done to 2019 was 1.28. Diltiazem drip discontinued last p.m. due to slow heart rate. This a.m. atrial fibrillation with varying ventricular response anywhere from 90 up to 150. P.o. Cardizem and metoprolol were given at this time due to rapid heart rate. This a.m. patient states she feels nervous. She feels this is the cause of her atrial fib. She really is wanting to go home. She denies chest pain and shortness of breath. She states she eats without difficulty. She ambulates without problems and denies dizziness. She cannot tell that her heart is beating irregularly. Laboratory data on admission revealed a white blood cell count of 12,900 with a hemoglobin of 13.3 and hematocrit of 40.4. Blood chemistries show sodium of 134 and potassium of 3.6. BUN is 25 and creatinine is 1.4. Troponin I is normal x3. Chest x-ray shows no acute changes. Hospital Course Hospital Course: The patient's chest x-ray showed nothing acute. She was started on Valium 3 times a day along with Xarelto and cardiology was consulted. An echo was ordered. She had been weaned off of the diltiazem drip but was reinitiated on the drip after her heart rate increased. Her rate improved and the drip was discontinued again. Cardiology increased her metoprolol dose to 100 mg for better heart rate control and gave a 0.5 mg IV dose of digoxin. They then started her on a daily dose of 0.125 mg of digoxin. They also started her on 240 mg of Cardizem daily. By 11/04/2020, the patient was feeling better. She denied any pain or shortness of breath and her heart rate had remained controlled, however she was still in atrial fib/atrial flutter. She wanted to be discharged home and was stable to discharge with a follow-up in [place] next week as well as with cardiology. Objective Vital signs: Temp Pulse Resp BP Pulse Ox 98.0 F 99 H 17 120/54 L 100 11/04/20 08:00 11/04/20 08:48 11/04/20 08:00 11/04/20 08:00 11/04/20 08:00 Narrative: - Constitutional no acute distress Comments: Sitting up in chair at bedside. Appears comfortable. Has just complete
[2020-11-04 16:00] VITALS: PULSE 93
== END 2020-11-04 14:00 | disposition home or self-care (01) ==
LOC: ER 16:41 → 2ND 17:06
PROVIDERS: Nurse Practitioner Family; Urology; Admitting Provider Family Medicine; Emergency Provider Emergency Medicine; PCP Family Medicine; Visit Provider Family Medicine
DX: I48.20 Chronic atrial fibrillation, unspecified (principal); E78.5 Hyperlipidemia, unspecified; I10 Essential (primary) hypertension; Z88.0 Allergy status to penicillin; I48.92 Unspecified atrial flutter; F41.9 Anxiety disorder, unspecified; R21 Rash and other nonspecific skin eruption; T50.995A Adverse effect of other drugs, medicaments and biological substances, initial encounter; I08.1 Rheumatic disorders of both mitral and tricuspid valves
CPT/HCPCS: 71045; 80048; 84436; 84443; 84481; 84484; 85025; 87581; 87633; 87798; 93005; 93306; 96365; 96375; 99284; G0378

== ENCOUNTER → 2021-12-31 12:18 | Outpatient (CLI) | payer MEDICARE, OTHER, SELFPAY ==
[2021-12-30 18:24] LABS: Alanine Aminotransferase 19 U/L (12-78); Albumin Level 4.3 g/dl (3.5-5.0); Albumin/Globulin Ratio 1.8 (1.1-1.8); Alkaline Phosphatase 77 U/L (38-126); Anion Gap 13.8 mEq/L (5-15); Aspartate Amino Transferase 44 U/L (14-36); Bilirubin,Total 0.5 mg/dl (0.2-1.3); Blood Urea Nitrogen 26 mg/dl (7-17); Calcium 9.4 mg/dl (8.4-10.2); Carbon Dioxide 27 mmol/L (22.0-30.0); Chloride 97 mmol/L (98-107); Estimated Glomerular Filt Rate 30 ml/min (>60); GFR (African American) 37 ML/MIN (>60); Globulin 2.4 g/dL (1.3-3.2); Glucose 110 mg/dl (74-100); Potassium 4.8 mmoL/L (3.5-5.1); Sodium 133 mmol/L (136-145); Total Protein,Serum 6.7 g/dl (6.3-8.2)
== END ==
PROVIDERS: PCP Family Medicine; Visit Provider Family Medicine
DX: I10 Essential (primary) hypertension (principal)
CPT/HCPCS: 80053

== ENCOUNTER → 2022-01-26 06:46 | Outpatient (CLI) | payer MEDICARE, OTHER, SELFPAY | PROVIDERS: PCP Nurse Practitioner; Visit Provider Nurse Practitioner | DX: N30.01 Acute cystitis with hematuria (principal) | CPT/HCPCS: 87086 ==

== ENCOUNTER → 2022-02-01 06:45 | Outpatient (CLI) | payer MEDICARE, OTHER, SELFPAY ==
[2022-02-01 21:14] LABS: Basophils # 0.1 K/mm3 (0-0.2); Basophils % 1.5 % (0.1-2.0); Eosinophils # 0.2 K/mm3 (0.0-0.4); Eosinophils % 2.9 % (0.1-12.0); Hematocrit 37.4 % (37.0-47.0); Hemoglobin 12.5 g/dL (12.2-16.2); Lymphocytes # 1.4 K/mm3 (0.7-4.5); Lymphocytes % 19.1 % (10-50); Mean Corpuscular HGB Conc 33.4 g/dL (31.8-35.4); Mean Corpuscular Hemoglobin 29.7 pg (27.0-31.2); Mean Corpuscular Volume 88.9 fl (81-99); Mean Platelet Volume 8.6 fl (7.4-10.4); Monocytes # 0.6 K/mm3 (0.1-1.0); Monocytes % 7.7 % (1.7-9.3); Neutrophils # 5.1 K/mm3 (1.8-7.8); Neutrophils % 68.8 % (37.0-80.0); Platelet Count 303 K/mm3 (142-424); Red Cell Distribution Width 13.7 % (11.5-17.5); White Blood Count 7.4 K/mm3 (4.8-10.8)
[2022-02-01 21:32] LABS: Alanine Aminotransferase 18 U/L (12-78); Albumin Level 4.4 g/dl (3.5-5.0); Albumin/Globulin Ratio 1.8 (1.1-1.8); Alkaline Phosphatase 73 U/L (38-126); Anion Gap 11.7 mEq/L (5-15); Aspartate Amino Transferase 36 U/L (14-36); Bilirubin,Total 0.3 mg/dl (0.2-1.3); Blood Urea Nitrogen 17 mg/dl (7-17); Calcium 9.6 mg/dl (8.4-10.2); Carbon Dioxide 26 mmol/L (22.0-30.0); Chloride 90 mmol/L (98-107); Estimated Glomerular Filt Rate 42 ml/min (>60); GFR (African American) 51 ML/MIN (>60); Globulin 2.4 g/dL (1.3-3.2); Glucose 106 mg/dl (74-100); Potassium 4.7 mmoL/L (3.5-5.1); Sodium 123 mmol/L (136-145); Total Protein,Serum 6.8 g/dl (6.3-8.2)
== END ==
PROVIDERS: PCP Family Medicine; Visit Provider Family Medicine
DX: K62.5 Hemorrhage of anus and rectum (principal)
CPT/HCPCS: 80053; 85025

== ENCOUNTER → 2022-02-10 10:30 | Outpatient (CLI) | payer MEDICARE, OTHER, SELFPAY ==
[2022-02-10 21:08] LABS: Basophils % 0.2 % (0.1-2.0); Eosinophils # 0.1 K/mm3 (0.0-0.4); Eosinophils % 1.1 % (0.1-12.0); Hematocrit 36.3 % (37.0-47.0); Hemoglobin 12.2 g/dL (12.2-16.2); Lymphocytes # 1.1 K/mm3 (0.7-4.5); Lymphocytes % 11.1 % (10-50); Mean Corpuscular HGB Conc 33.4 g/dL (31.8-35.4); Mean Corpuscular Hemoglobin 28.9 pg (27.0-31.2); Mean Corpuscular Volume 86.4 fl (81-99); Monocytes # 0.5 K/mm3 (0.1-1.0); Monocytes % 5.3 % (1.7-9.3); Neutrophils # 8.1 K/mm3 (1.8-7.8); Neutrophils % 82.2 % (37.0-80.0); Platelet Count 312 K/mm3 (142-424); Red Blood Count 4.21 M/mm3 (4.20-5.40); Red Cell Distribution Width 13.4 % (11.5-17.5); White Blood Count 9.8 K/mm3 (4.8-10.8)
== END ==
PROVIDERS: PCP Family Medicine; Visit Provider Family Medicine
DX: F41.9 Anxiety disorder, unspecified (principal); K62.5 Hemorrhage of anus and rectum
CPT/HCPCS: 85025

== ENCOUNTER 2022-02-26 14:09 | Emergency (ER) | payer MEDICARE, OTHER, SELFPAY ==
[2022-02-26 14:20] VITALS: BP 112/67; PULSE 90; RESP 22; TEMP 36.7; O2SAT 100; BMI 25.0
[2022-02-26 14:50] LABS: Basophils # 0.1 K/mm3 (0-0.2); Basophils % 1.2 % (0.1-2.0); Eosinophils # 0.1 K/mm3 (0.0-0.4); Eosinophils % 1.5 % (0.1-12.0); Hemoglobin 13.7 g/dL (12.2-16.2); Lymphocytes # 1.4 K/mm3 (0.7-4.5); Lymphocytes % 20.1 % (10-50); Mean Corpuscular HGB Conc 34.2 g/dL (31.8-35.4); Mean Corpuscular Hemoglobin 29.6 pg (27.0-31.2); Mean Corpuscular Volume 86.6 fl (81-99); Mean Platelet Volume 7.3 fl (7.4-10.4); Monocytes # 0.8 K/mm3 (0.1-1.0); Monocytes % 10.6 % (1.7-9.3); Neutrophils # 4.7 K/mm3 (1.8-7.8); Neutrophils % 66.6 % (37.0-80.0); Platelet Count 490 K/mm3 (142-424); Red Blood Count 4.62 M/mm3 (4.20-5.40); Red Cell Distribution Width 13.6 % (11.5-17.5); White Blood Count 7.1 K/mm3 (4.8-10.8)
[2022-02-26 14:57] LABS: Chloride 94 mmol/L (98-107); Sodium 132 mmol/L (136-145)
[2022-02-26 15:00] LABS: Alanine Aminotransferase 18 U/L (12-78); Albumin Level 3.7 g/dl (3.5-5.0); Albumin/Globulin Ratio 1.5 (1.1-1.8); Alkaline Phosphatase 80 U/L (38-126); Anion Gap 14.8 mEq/L (5-15); Aspartate Amino Transferase 35 U/L (14-36); Bilirubin,Total 0.4 mg/dl (0.2-1.3); Blood Urea Nitrogen 32 mg/dl (7-17); Carbon Dioxide 26 mmol/L (22.0-30.0); Creatinine Clearance Estimated 26 mL/min (50-200); Estimated Glomerular Filt Rate 28 ml/min (>60); GFR (African American) 34 ML/MIN (>60); Globulin 2.5 g/dL (1.3-3.2); Total Protein,Serum 6.2 g/dl (6.3-8.2)
[2022-02-26 15:01] LABS: Calcium 8.8 mg/dl (8.4-10.2); Glucose 118 mg/dl (74-100)
[2022-02-26 15:02] LABS: Potassium 2.8 mmoL/L (3.5-5.1)
--- NOTE | 2022-02-26 15:02 | PC.NURSE ---
CRITICAL POTASSIUM 2.8. PER DALJIT IN LAB. PT NAME AND R/V. ED NOTIFIED
--- NOTE | 2022-02-26 15:44 | PC.NURSE ---
ED MD AT BEDSIDE
--- NOTE | 2022-02-26 16:01 | HMH.EDGENADL ---
Discharge Plan Disposition Patient Disposition: Home, Self-Care Condition: Good Prescriptions Prescriptions: New potassium chloride 20 mEq tablet extended release 20 meq PO DAILY Qty: 7 0RF vancomycin 125 mg capsule 125 mg PO QID Qty: 40 0RF No Action quetiapine 25 mg tablet 25 mg PO HS diazepam 2 mg tablet 2 mg PO TID PRN (Reason: anxiety) Qty: 90 1RF potassium chloride 10 mEq capsule, extended release 10 meq PO DAILY Qty: 30 3RF aspirin [Adult Low Dose Aspirin] 81 mg tablet,delayed release (DR/EC) 81 mg PO HS diltiazem HCl 240 mg capsule,extended release 24hr 240 mg PO DAILY Eliquis 2.5 mg tablet See Rx Instructions .ROUTE .COMPLEX Qty: 60 5RF Dose Instruction: TAKE 1 TABLET BY MOUTH TWICE DAILY Rx Instructions: TAKE 1 TABLET BY MOUTH TWICE DAILY donepezil 5 mg tablet 5 mg PO HS Qty: 30 2RF triamterene-hydrochlorothiazid 37.5-25 mg tablet 0.5 tab PO DAILY Qty: 45 0RF atorvastatin 20 MG tablet 20 mg PO HS Qty: 30 4RF metoprolol succinate 100 MG tablet extended release 24 hr 100 mg PO DAILY Qty: 30 3RF Referrals Follow up/Referrals: Maurice Andrade MD [Primary Care Provider] - See instructions Activity Restrictions/Add. Instructions Additional Instructions/Restrictions: Take potassium as prescribed. Drink plenty of fluids. Follow-up with primary care provider in office in [place] tomorrow. Check on the results of your diarrhea panel tomorrow at your appointment. Clinical Impressions Clinical Impression: Diarrhea, Acute dehydration, Acute hypokalemia, Clostridium difficile diarrhea Instructions Patient Instructions: DI for Diarrhea and Traveler's Diarrhea -- Adult, DI for Diarrhea and Traveler's Diarrhea -- Child, DI for Nausea -- Adult, DI for Nausea -- Child Discharge ED Provider: José Manuel Courtney Adult [facility] General Chief complaint: Nausea/Vomiting/Diarrhea Stated complaint: Chronic diarreah, no appetite Time Seen by Provider: 02/26/22 15:40 Mode of Arrival: Ambulatory Source of Information: Patient and Relative Limitations: No Limitations Description of Symptoms (Recalled from ER Triage Doc. by RN): Patient states that she has had diarrhea at least 3-4 times today. She states this has lasted at least 4 days. states stool is mostly liquid. pt also states that she is nervous, but being nervous when somthing is wrong with her is not new. History of Present Illness HPI narrative: History obtained from patient and daughter. About 2 weeks ago the patient was constipated. She was started on Metamucil by PCP. She had a large bowel movement and then for about a week had normal bowel movements after that. Then 1 week ago she began having diarrhea. She has been incontinent of stool. Stool was mostly watery and yellow today. No blood noted. No vomiting. Denies any abdominal pain. Daughter states that patient also was more confused than usual was sleeping in bed today which is unusual for her on a Sunday afternoon. Patient states that she does not feel bad, just has diarrhea. She does complain of being nervous. Related Data Home Medications Medication Instructions Recorded Confirmed aspirin 81 mg tablet,delayed 81 mg PO HS heart 12/11/19 02/10/22 release (Adult Low Dose Aspirin) quetiapine 25 mg tablet 25 mg PO HS MOOD 01/13/20 02/10/22 diltiazem HCl 240 mg 240 mg PO DAILY HEART RATE 02/01/22 02/10/22 capsule,extended release 24 hr Previous Rx's Medication Instructions Recorded atorvastatin 20 mg tablet 20 mg PO HS Cholesterol #30 tabs 12/01/19 metoprolol succinate 100 mg 100 mg PO DAILY ##30 11/04/20 tablet,extended release 24 hr apixaban 2.5 mg tablet (Eliquis) See Rx Instructions .Route 09/28/21 .COMPLEX #60 tabs diazepam 2 mg tablet 2 mg PO TID PRN anxiety #90 tabs 12/30/21 potassium chloride 10 mEq 10 meq PO DAILY #30 caps 02/10/22 capsule,extended release donepezil 5 mg tablet 5 mg
[2022-02-26 16:30] VITALS: BP 124/71; PULSE 76; RESP 20; O2SAT 99
--- NOTE | 2022-02-26 16:38 | PC.NURSE ---
Dr Raymond dobbs
--- NOTE | 2022-02-26 16:39 | PC.NURSE ---
Dr Courtney speaking with Dr Andrade
[2022-02-26 17:00] VITALS: BP 114/58; PULSE 90; RESP 20; O2SAT 98
--- NOTE | 2022-02-26 17:27 | PC.NURSE ---
PT ASSISTED TO BR FOR STOOL SPECIMEN
[2022-02-26 17:36] LABS: Campylobacter Not Detected (NotDetected); Enteroaggregative E coli Not Detected (NotDetected); Enteropathogenic E coli Not Detected (NotDetected); Enterotoxigenic E coli Not Detected (NotDetected); Plesimonas Shigalloides, PCR Not Detected (NotDetected); Salmonella, PCR Not Detected (NotDetected); Shiga-like toxin E coli Not Detected (NotDetected); Vibrio Cholerae Not Detected (NotDetected); Vibrio, PCR Not Detected (NotDetected); Yersinia Entercolitica, PCR Not Detected (NotDetected)
[2022-02-26 17:37] LABS: Adenovirus F 40/41, stool Not Detected (NotDetected); Astrovirus Not Detected (NotDetected); Cryptosporidium Not Detected (NotDetected); Cyclospora Cayetanesis Not Detected (NotDetected); Entamoeba histolytica Not Detected (NotDetected); Giardia lamblia Not Detected (NotDetected); Norovirus Not Detected (NotDetected); Rotavirus A Not Detected (NotDetected); Sapovirus Not Detected (NotDetected); Shigella Enterovasive E coli Not Detected (NotDetected)
[2022-02-26 18:45] VITALS: BP 114/70; PULSE 84; RESP 17; TEMP 36.7; O2SAT 99
[2022-02-26 19:32] LABS: Clostridium Difficile A/B, PCR Detected (NotDetected)
== END 2022-02-26 18:45 | disposition home or self-care (01) ==
PROVIDERS: Emergency Provider Emergency Medicine; PCP Family Medicine
DX: A04.72 Enterocolitis due to Clostridium difficile, not specified as recurrent (principal); E86.0 Dehydration; E87.6 Hypokalemia; Z79.899 Other long term (current) drug therapy; Z88.0 Allergy status to penicillin; Z88.1 Allergy status to other antibiotic agents; Z79.01 Long term (current) use of anticoagulants; I10 Essential (primary) hypertension; I07.1 Rheumatic tricuspid insufficiency; R00.1 Bradycardia, unspecified; F41.9 Anxiety disorder, unspecified; Z86.79 Personal history of other diseases of the circulatory system
CPT/HCPCS: 80053; 85025; 87506; 96365; 99284

== ENCOUNTER 2022-03-04 12:56 | Observation (INO) | payer MEDICARE, OTHER, SELFPAY ==
[2022-03-04] VITALS (11 sets, daily range): BP systolic 99–120; BP diastolic 38–61; PULSE 39–72; RESP 15–20; TEMP 36.4–36.6; O2SAT 72–100; BMI 25.7; BMI 22.8
--- NOTE | 2022-03-04 13:16 | ECG_ITS ---
APPROVED REPORT Exam: Resting ECG HR:38 bpm ECG Measurements Heart Rate 38 AXES QRSd 86 QRS -17 QT 497 T -36 QTc 417 Conclusion ATRIAL FLUTTER/TACHYCARDIA WITH SLOW VENTRICULAR RESPONSE ST DEVIATION AND MODERATE T-WAVE ABNORMALITY, CONSIDER ANTEROLATERAL ISCHEMIA [-0.1+ mV T-WAVE IN V3-V6] ST DEVIATION AND MODERATE T-WAVE ABNORMALITY, CONSIDER INFERIOR ISCHEMIA [-0.1+ mV T-WAVE IN II/aVF] CRITICAL TEST RESULT UNCONFIRMED REPORT Electronically signed by : Vinay Uribe MD 03/09/2022 16:05:55
--- NOTE | 2022-03-04 13:25 | PC.NURSE ---
family at bedside
--- NOTE | 2022-03-04 13:33 | HMH.EDGENADL ---
Discharge Plan Disposition Patient Disposition: Admitted As Inpatient Condition: Good Prescriptions Prescriptions: No Action quetiapine 25 mg tablet 25 mg PO HS diazepam 2 mg tablet 2 mg PO TID PRN (Reason: anxiety) Qty: 90 1RF potassium chloride 10 mEq capsule, extended release 10 meq PO DAILY Qty: 30 3RF aspirin [Adult Low Dose Aspirin] 81 mg tablet,delayed release (DR/EC) 81 mg PO HS diltiazem HCl 240 mg capsule,extended release 24hr 240 mg PO DAILY Eliquis 2.5 mg tablet See Rx Instructions .ROUTE .COMPLEX Qty: 60 5RF Dose Instruction: TAKE 1 TABLET BY MOUTH TWICE DAILY Rx Instructions: TAKE 1 TABLET BY MOUTH TWICE DAILY donepezil 5 mg tablet 5 mg PO HS Qty: 30 2RF triamterene-hydrochlorothiazid 37.5-25 mg tablet 0.5 tab PO DAILY Qty: 45 0RF atorvastatin 20 MG tablet 20 mg PO HS Qty: 30 4RF metoprolol succinate 100 MG tablet extended release 24 hr 100 mg PO DAILY Qty: 30 3RF potassium chloride 20 mEq tablet extended release 20 meq PO DAILY Qty: 7 0RF vancomycin 125 mg capsule 125 mg PO QID Qty: 40 0RF Referrals Follow up/Referrals: Maurice Andrade MD [Primary Care Provider] - See instructions Discharge ED Provider: Arnoldo Goodwin Adult HPI General Chief complaint: Recheck/Abnormal Lab/Rx Stated complaint: Thinks took too much med Time Seen by Provider: 03/04/22 13:33 History of Present Illness HPI narrative: 86-year-old female with history of hypokalemia, atrial fibrillation on Eliquis, and currently being treated for C. difficile. She is brought in due to accidental medication overdose. She has all her medications in a blister pack, her daughter states she called and noticed that she was confused and I reviewed her medications and saw that she had taken all of her medications for the day as well as 3 days worth of doses for oral vancomycin. Currently she does exhibit some mild confusion, denies fevers, chills, nausea, vomiting, palpitations, lightheadedness or dizziness or any other symptoms at this time. Medications that she appears taken in excess include diltiazem 240 mg both doses for the day were taken at once in conjunction with 100 mg of metoprolol. These were also taken with other blood pressure medication of triamterene hydrochlorothiazide. She is noted to be bradycardic at arrival however awake alert mentating normally aside from mild confusion and blood pressure is maintained above 100 systolic Related Data Home Medications Medication Instructions Recorded Confirmed aspirin 81 mg tablet,delayed 81 mg PO HS heart 12/11/19 02/27/22 release (Adult Low Dose Aspirin) quetiapine 25 mg tablet 25 mg PO HS MOOD 01/13/20 02/27/22 diltiazem HCl 240 mg 240 mg PO DAILY HEART RATE 02/01/22 02/27/22 capsule,extended release 24 hr Previous Rx's Medication Instructions Recorded atorvastatin 20 mg tablet 20 mg PO HS Cholesterol #30 tabs 12/01/19 metoprolol succinate 100 mg 100 mg PO DAILY ##30 11/04/20 tablet,extended release 24 hr apixaban 2.5 mg tablet (Eliquis) See Rx Instructions .Route 09/28/21 .COMPLEX #60 tabs diazepam 2 mg tablet 2 mg PO TID PRN anxiety #90 tabs 12/30/21 potassium chloride 10 mEq 10 meq PO DAILY #30 caps 02/10/22 capsule,extended release donepezil 5 mg tablet 5 mg PO HS memory #30 tabs 02/15/22 triamterene 37.5 0.5 tab PO DAILY Hypertension #45 02/15/22 mg-hydrochlorothiazide 25 mg tablet tabs potassium chloride 20 mEq 20 meq PO DAILY #7 tabs 02/26/22 tablet,extended release vancomycin 125 mg capsule 125 mg PO QID #40 caps 02/26/22 Allergies Allergy/AdvReac Type Severity Reaction Status Date / Time cefuroxime Allergy rash Verified 02/27/22 12:04 Penicillins Allergy Verified 01/26/22 11:12 [facility] Medical History HTN (hypertension) senior care current use of anticoagulant Severe tricuspid regurgitation Sinus b
--- NOTE | 2022-03-04 13:40 | XR_ITS ---
PROCEDURE INFORMATION: Exam: XR Chest Exam date and time: 03/04/2022 1:55 PM Age: 86 years old Clinical indication: Shortness of breath; Additional info: Sob/cp TECHNIQUE: Imaging protocol: Radiologic exam of the chest. Views: 1 view. COMPARISON: CR XR CHEST PORTABLE 11/02/2020 3:18 PM FINDINGS: Lungs: Unremarkable. No consolidation. Pleural spaces: Unremarkable. No pleural effusion. No pneumothorax. Heart/Mediastinum: Unremarkable. No cardiomegaly. Bones/joints: Unremarkable. IMPRESSION: No acute findings.
--- NOTE | 2022-03-04 14:13 | PC.NURSE ---
pt and family updated on plan of care
[2022-03-04 14:58] LABS: Basophils # 0.1 K/mm3 (0-0.2); Basophils % 1.4 % (0.1-2.0); Eosinophils # 0.1 K/mm3 (0.0-0.4); Hematocrit 34.5 % (37.0-47.0); Hemoglobin 11.6 g/dL (12.2-16.2); Mean Corpuscular HGB Conc 33.5 g/dL (31.8-35.4); Mean Corpuscular Hemoglobin 29.4 pg (27.0-31.2); Mean Platelet Volume 7.3 fl (7.4-10.4); Monocytes # 0.5 K/mm3 (0.1-1.0); Monocytes % 7.1 % (1.7-9.3); Neutrophils # 4.5 K/mm3 (1.8-7.8); Neutrophils % 62.5 % (37.0-80.0); Platelet Count 491 K/mm3 (142-424); Red Blood Count 3.92 M/mm3 (4.20-5.40); Red Cell Distribution Width 13.9 % (11.5-17.5); White Blood Count 7.2 K/mm3 (4.8-10.8)
[2022-03-04 15:06] LABS: Chloride 101 mmol/L (98-107); Sodium 137 mmol/L (136-145)
[2022-03-04 15:09] LABS: Alanine Aminotransferase 21 U/L (12-78); Alkaline Phosphatase 101 U/L (38-126); Aspartate Amino Transferase 40 U/L (14-36); Bilirubin,Total 0.3 mg/dl (0.2-1.3); Blood Urea Nitrogen 17 mg/dl (7-17); Carbon Dioxide 25 mmol/L (22.0-30.0); Creatinine Clearance Estimated 22 mL/min (50-200); Estimated Glomerular Filt Rate 24 ml/min (>60); GFR (African American) 29 ML/MIN (>60)
[2022-03-04 15:10] LABS: Albumin Level 3.5 g/dl (3.5-5.0); Albumin/Globulin Ratio 1.4 (1.1-1.8); Calcium 8.8 mg/dl (8.4-10.2); Globulin 2.5 g/dL (1.3-3.2); Glucose 103 mg/dl (74-100); Magnesium 1.8 mg/dl (1.6-2.3)
--- NOTE | 2022-03-04 15:11 | PC.NURSE ---
CALLED DIETARY TO GET A TRAY FOR THE PT, PT WAS LYING IN BED FAMILY IN THE ROOM, PT STATES THAT SHE WAS GETTING A LITTLE HUNGRY
[2022-03-04 15:22] LABS: Troponin I < 0.01 ng/ml (0.00-0.034)
--- NOTE | 2022-03-04 15:44 | PC.NURSE ---
TOOK PT HER TRAY, SIT HER UP ON THE SIDE OF THE BED SO SHE COULD EAT, FAMILY IN THE ROOM
--- NOTE | 2022-03-04 15:47 | PC.NURSE ---
Called [facility] for bed; admitting dx CHRISTIAN symptomatic bradycardia; Lina
--- NOTE | 2022-03-04 16:09 | PC.NURSE ---
PT LYING BACK DOWN IN BED, COVID TEST DONE, PT HOOKED BACK UP TO MONITER VITALS
[2022-03-04 16:18] LABS: Coronavirus 19, PCR Not Detected (NotDetected); Influenza A, PCR Not Detected (NotDetected); Influenza B, PCR Not Detected (NotDetected)
--- NOTE | 2022-03-04 16:45 | PC.NURSE ---
PY LYING IN BED NOTHING NEEDED AT THIS TIME, FAMILY IN ROOM, WAITING TO GO UP TO ROOM
--- NOTE | 2022-03-04 16:47 | PC.NURSE ---
report called to floor
--- NOTE | 2022-03-04 17:04 | PC.NURSE ---
pt arrived to the floor at this time
--- NOTE | 2022-03-04 17:17 | PC.NURSE ---
Tech note; upon pts arrival to room, I took vitals, height and weight, provided call light, and warming blanket. Pt stated she was not hungry and did not want her food from her tray. Will leave in room for another hour incase she gets hungry. Pt expressed no other needs at this time.
[2022-03-04 17:52] LABS: Microscopic, Urine URINE MICROSCOPIC (MICROSCOPIC)
[2022-03-04 17:53] LABS: Appearance,Urine CLEAR (Clear); Bilirubin,Urine Negative (Negative); Blood, Urine Negative (Negative); Color,Urine YELLOW (Yellow); Glucose,Urine (UA) Negative (Negative); Ketones,Urine Negative (Negative); Leukocyte Esterase,Urine 1+ (Negative); Nitrate,Urine Negative (Negative); Protein,Urine Negative (Negative); Specific Gravity, Urine 1.015 (1.005-1.030); Urobilinogen,Urine 0.2 EU/dl (0.2)
--- NOTE | 2022-03-04 17:54 | PC.NURSE ---
pt has been admitted to the unit. she is alert and pleasant but confused. Ambulates with SBA and gait is mostly steady. she has multiple bruises that she is unsure of how she got them. She currently lives alone but family calls to check on her. She got diagnosed with CDiff and a SIMONE a few weeks ago per daughters and has been declining since. Daughters say she has had poor appetite and diarrhea for a few weeks. I placed pt in precautions and sent a urine sample to lab. Pts lungs are cta. She denies any belly pain. bs are positive x4. core man are equal and strong. no edema.
[2022-03-04 17:58] LABS: Troponin I < 0.01 ng/ml (0.00-0.034)
[2022-03-04 18:17] LABS: Amorphous Sediment,Urine 2+ /lpf; Bacteria,Urine 2+ /lpf
--- NOTE | 2022-03-04 18:41 | PC.NURSE ---
Tech note; pt with family in room, requested to keep dinner tray at 1800 SRNA check. call light within reach.
[2022-03-04 20:40] LABS: Troponin I < 0.01 ng/ml (0.00-0.034)
[2022-03-05] VITALS (9 sets, daily range): BP systolic 112–137; BP diastolic 46–75; PULSE 60–95; RESP 16–17; TEMP 36.4–36.9; O2SAT 96–98; BMI 22.8
--- NOTE | 2022-03-05 05:48 | PC.NURSE ---
NO ACUTE CHANGES SINCE PREVIOUS ASSESSMENT. PT HAS SLEPT WELL THIS SHIFT. LUNG SOUNDS ARE CLEAR. PT IS TURNING IN BED INDEPENDENTLY. HR HAS BEEN IN THE UPPER 50'S TO 80 BPM THIS SHIFT BP HAS REMAINED STABLE. NO C/O SOB, OR CP. REMAINS PLEASANTLY CONFUSED. CALL CRONIN WITHIN REACH. FAMILY AT BEDSIDE.
[2022-03-05 07:49] LABS: Basophils # 0.1 K/mm3 (0-0.2); Basophils % 1.2 % (0.1-2.0); Eosinophils # 0.2 K/mm3 (0.0-0.4); Eosinophils % 4.1 % (0.1-12.0); Hematocrit 34.2 % (37.0-47.0); Hemoglobin 11.3 g/dL (12.2-16.2); Lymphocytes # 1.8 K/mm3 (0.7-4.5); Lymphocytes % 33.4 % (10-50); Mean Corpuscular HGB Conc 33.1 g/dL (31.8-35.4); Mean Corpuscular Hemoglobin 29.5 pg (27.0-31.2); Mean Corpuscular Volume 89.1 fl (81-99); Mean Platelet Volume 7.3 fl (7.4-10.4); Monocytes # 0.4 K/mm3 (0.1-1.0); Monocytes % 7.3 % (1.7-9.3); Neutrophils # 2.9 K/mm3 (1.8-7.8); Neutrophils % 54.1 % (37.0-80.0); Platelet Count 529 K/mm3 (142-424); Red Blood Count 3.84 M/mm3 (4.20-5.40); Red Cell Distribution Width 14.1 % (11.5-17.5); White Blood Count 5.3 K/mm3 (4.8-10.8)
[2022-03-05 07:57] LABS: Anion Gap 13.8 mEq/L (5-15); Blood Urea Nitrogen 14 mg/dl (7-17); Calcium 8.3 mg/dl (8.4-10.2); Carbon Dioxide 24 mmol/L (22.0-30.0); Chloride 105 mmol/L (98-107); Creatinine Clearance Estimated 28 mL/min (50-200); Estimated Glomerular Filt Rate 36 ml/min (>60); GFR (African American) 43 ML/MIN (>60); Glucose 93 mg/dl (74-100); Potassium 3.8 mmoL/L (3.5-5.1); Sodium 139 mmol/L (136-145)
--- NOTE | 2022-03-05 10:22 | P.CONPHA_ITS ---
[facility] Pharmacy VTE Monitoring Patient Demographics Patient Allergies cefuroxime Allergy (Verified 02/27/22 12:04) rash Penicillins Allergy (Verified 01/26/22 11:12) Height: 1.65 m Weight: 62.397 kg Current Active Problems (Updated 03/04/22 @ 18:04 by Gabbi Kyle RN) CHRISTIAN (acute kidney injury) (Acute) VTE Risk Labs: VTE Related Lab Results Hgb 11.3 g/dL (12.2-16.2) L 03/05/22 07:25 Hct 34.2 % (37.0-47.0) L 03/05/22 07:25 Plt Count 529 K/mm3 (142-424) H 03/05/22 07:25 BUN 14 mg/dl (7-17) 03/05/22 07:25 Creatinine 1.40 mg/dl (0.52-1.04) H D 03/05/22 07:25 Estimated Creat Clear 28 mL/min (50-200) 03/05/22 07:25 Was VTE Risk Assessment Performed: Yes VTE Score: 2 VTE Risk Level: Very Low Risk Clinical Trial Participant: No Prophylaxis VTE Prophylaxis Ordered?: Yes Types of VTE Prophylaxis: TEDS Knee High Location of Applied Device: Refused
--- NOTE | 2022-03-05 10:23 | HMH.PHAINT1 ---
Pharmacy Intervention Comments: MEDICATION RECONCILIATION COMPLETE USING LIST FROM MOST RECENT MD OFFICE VISIT AND EXTERNAL PHARMACY FILL HISTORY.
--- NOTE | 2022-03-05 11:29 | EXP.HP ---
History of Present Illness *Admission Date: 03/04/22 *Reason for visit:: confusion *History of present illness: 86-year-old female with history of hypokalemia, atrial fibrillation on Eliquis, and currently being treated for C. difficile.? She is brought in due to accidental medication overdose.? She has all her medications in a blister pack, her daughter states she called and noticed that she was confused and I reviewed her medications and saw that she had taken all of her medications for the day as well as 3 days worth of doses for oral vancomycin.? Currently she does exhibit some mild confusion, denies fevers, chills, nausea, vomiting, palpitations, lightheadedness or dizziness or any other symptoms at this time.? Medications that she appears taken in excess include diltiazem 240 mg both doses for the day were taken at once in conjunction with 100 mg of metoprolol.? These were also taken with other blood pressure medication of triamterene hydrochlorothiazide.? She is noted to be bradycardic at arrival however awake alert mentating normally aside from mild confusion and blood pressure is maintained above 100 systolic. (above as per ER physician) She is feeling a little bit better this morning. Her family states her confusion has improved. Her creatinine was elevated and has improved this morning. She continues with loose stools. [facility] Medical History (Updated 03/05/22 @ 11:49 by HOUSTON Vera) Anxiety Atrial fibrillation C. difficile colitis HLD (hyperlipidemia) HTN (hypertension) longterm current use of anticoagulant Memory deficit Severe tricuspid regurgitation Sinus bradycardia Valvular heart disease Family History No significant family history Social History (Updated 03/04/22 @ 18:06 by Gabbi Kyle RN) Smoking Status: Never smoker alcohol intake: never substance use type: denies use current occupational status: retired Travel in the last 8 weeks: None household members: none housing: house lives independently: Yes service: No current occupational exposures/hazards: No sexually active: No caffeine: Yes physical activity: walking frequency: 1-2 times per week Review of Systems Constitutional Constitutional: Denies fatigue, Denies headache(s) and Reports weakness Eyes Eyes: Denies blurry vision and Denies diplopia ENT Ears, Nose, Mouth, and Throat: Denies headache(s), Reports nasal congestion, Denies sore throat and Denies vertigo *Cardiovascular Cardiovascular: Denies chest pain, Denies dyspnea and Denies leg edema *Respiratory Respiratory: Denies cough and Denies dyspnea *Gastrointestinal Gastrointestinal: Denies abdominal pain, Denies loose stools, Denies nausea and Denies vomiting *Genitourinary Genitourinary: Denies dysuria *Musculoskeletal Musculoskeletal: Denies arthralgias and Denies myalgias *Neurologic Neurologic: Reports system reviewed and no additional complaints, except as documented, Reports confusion, Denies headache(s), Denies vertigo and Reports weakness Psychiatric Psychiatric: Reports confusion Endocrine Endocrine: Denies fatigue Meds Home Medications and Allergies Home Medications Medication Instructions Recorded Confirmed Type atorvastatin 20 mg tablet 20 mg PO HS Cholesterol #30 tabs 12/01/19 03/04/22 Rx aspirin 81 mg tablet,delayed 81 mg PO HS CAD 12/11/19 03/04/22 History release (Adult Low Dose Aspirin) quetiapine 25 mg tablet 25 mg PO HS MOOD 01/13/20 03/04/22 History diltiazem HCl 240 mg 240 mg PO BID HEART RATE 02/01/22 03/05/22 History capsule,extended release 24 hr donepezil 5 mg tablet 5 mg PO HS memory #30 tabs 02/15/22 03/04/22 Rx triamterene 37.5 0.5 tab PO DAILY Hypertension #45 02/15/22 03/04/22 Rx mg-hydrochlorothiazide 25 mg tablet tabs apixaban 2.5 mg tablet (Eliquis) 2.5 mg PO BID Blood thinner 03/04/22 03/04/22 History metoprolol succinate 100 mg 100 mg PO DAILY
--- NOTE | 2022-03-05 16:42 | PC.NURSE ---
pt is aox4, but does have some episodes of mild confusion. she has not required o2 support this shift. family has been at bedside.
[2022-03-06] VITALS: PULSE 60
[2022-03-06 04:00] VITALS: BP 127/82; PULSE 70; PULSE 91; RESP 16; TEMP 36.8; O2SAT 96
[2022-03-06 05:00] VITALS: BMI 23.1
--- NOTE | 2022-03-06 05:15 | PC.NURSE ---
NO ACUTE CHANGES SINCE PREVIOUS ASSESSMENT. PT HAS RESTED WELL THIS SHIFT. LUNG SOUNDS ARE CLEAR. AMBULATING WITH ONE ASSIST TO THE BATHROOM. PT HAS BEEN NSR ON TELE. NO C/O PAIN, SOB, OR N/V. PT AND FAMILY EDUCATED ON NEED FOR A STOOL SAMPLE.
[2022-03-06 06:22] LABS: Basophils # 0.1 K/mm3 (0-0.2); Basophils % 1.2 % (0.1-2.0); Eosinophils # 0.2 K/mm3 (0.0-0.4); Eosinophils % 3.6 % (0.1-12.0); Hematocrit 32.4 % (37.0-47.0); Hemoglobin 10.5 g/dL (12.2-16.2); Lymphocytes # 1.8 K/mm3 (0.7-4.5); Lymphocytes % 32.1 % (10-50); Mean Corpuscular HGB Conc 32.4 g/dL (31.8-35.4); Mean Corpuscular Hemoglobin 29.1 pg (27.0-31.2); Mean Corpuscular Volume 89.8 fl (81-99); Monocytes # 0.3 K/mm3 (0.1-1.0); Neutrophils # 3.2 K/mm3 (1.8-7.8); Platelet Count 475 K/mm3 (142-424); Red Blood Count 3.61 M/mm3 (4.20-5.40); Red Cell Distribution Width 14.1 % (11.5-17.5); White Blood Count 5.6 K/mm3 (4.8-10.8)
[2022-03-06 06:34] LABS: Anion Gap 9.8 mEq/L (5-15); Blood Urea Nitrogen 14 mg/dl (7-17); Calcium 8.2 mg/dl (8.4-10.2); Carbon Dioxide 26 mmol/L (22.0-30.0); Chloride 106 mmol/L (98-107); Creatinine Clearance Estimated 33 mL/min (50-200); Estimated Glomerular Filt Rate 42 ml/min (>60); GFR (African American) 51 ML/MIN (>60); Glucose 93 mg/dl (74-100); Potassium 3.8 mmoL/L (3.5-5.1); Sodium 138 mmol/L (136-145)
[2022-03-06 08:00] VITALS: BP 121/58; PULSE 100; PULSE 98; RESP 19; TEMP 36.4; O2SAT 96
--- NOTE | 2022-03-06 09:22 | EXP.PN ---
Subjective *Date: 03/06/22 *Time: :22 Interval history: Patient patient states she is feeling better today and is going home. She is eating without difficulty. She is voiding QS. She has ambulated in the room. Exam Data for Last 24 hours Vital signs and Labs for Last 24 Hours: Temp Pulse Resp BP Pulse Ox 97.6 F 100 H 19 121/58 L 96 03/06/22 08:00 03/06/22 08:00 03/06/22 08:00 03/06/22 08:00 03/06/22 08:00 Laboratory Results - last 24 hr 03/06/22 06:15: WBC 5.6, RBC 3.61 L, Hgb 10.5 L, Hct 32.4 L, MCV 89.8, MCH 29.1, MCHC 32.4, RDW 14.1, Plt Count 475 H, MPV 7.0 L, Neut % (Auto) 57.0, Lymph % (Auto) 32.1, Piatt % (Auto) 6.0, Eos % (Auto) 3.6, Baso % (Auto) 1.2, Neut # (Auto) 3.2, Lymph # (Auto) 1.8, Piatt # (Auto) 0.3, Eos # (Auto) 0.2, Baso # (Auto) 0.1 03/06/22 06:15: Sodium 138, Potassium 3.8, Chloride 106, Carbon Dioxide 26, Anion Gap 9.8, BUN 14, Creatinine 1.20 H, Estimated Creat Clear 33, Estimated GFR 42 L, Est GFR ( Amer) 51 L, Glucose 93, Calcium 8.2 L I & O for Last 24 hours: Intake & Output 03/03/22 03/04/22 03/05/22 03/06/22 11:59 11:59 11:59 11:59 Intake Total 480 / 480 840 / 840 Output Total 600 / 600 300 / 300 Balance -120 / -120 540 / 540 Weight 137 lb 9 oz 138 lb 8 oz Microbiology Reports for the Last 24 Hours: Microbiology 03/04/22 17:45 Urine,Clean Catch Urine Culture - Preliminary Constitutional Constitutional: no acute distress and cooperative *Routine Respiratory Exam Respiratory: Present CTA bilaterally *Routine Cardiovascular Exam Cardiovascular: Present RRR *Routine Abdominal Exam Abdominal: Present soft and normoactive bowel sounds; Absent tenderness or distended *Routine Extremities Exam Extremities: Absent edema or calf tenderness *Routine Neurological Exam Neurological: Present alert and oriented X3 Assessment and Plan *Assessment and plan (1) HLD (hyperlipidemia): Status: Chronic Qualifiers: Hyperlipidemia type: mixed hyperlipidemia Qualified Code(s): E78.2 - Mixed hyperlipidemia Category: Medical Code(s): E78.5 - Hyperlipidemia, unspecified (2) Valvular heart disease: Status: Chronic Category: Medical Code(s): I38 - Endocarditis, valve unspecified (3) Memory deficit: Status: Acute Category: Medical Code(s): R41.3 - Other amnesia (4) C. difficile colitis: Status: Acute Category: Medical Code(s): A04.72 - Enterocolitis due to Clostridium difficile, not specified as recurrent (5) Acute kidney injury: Status: Acute Category: Medical Code(s): N17.9 - Acute kidney failure, unspecified (6) Anxiety: Status: Chronic Category: Medical Code(s): F41.9 - Anxiety disorder, unspecified (7) Altered mental status: Status: Acute Category: Medical Code(s): R41.82 - Altered mental status, unspecified (8) Accidental medication overdose: Status: Acute Category: Medical Code(s): T50.901A - Poisoning by unspecified drugs, medicaments and biological substances, accidental (unintentional), initial encounter Plan Patient has been discharged to home. See orders.
[2022-03-06 09:24] VITALS: BMI 23.1
--- NOTE | 2022-03-07 13:18 | CARE MANAGER ---
Spoke with patient daughter and she states that patient is fine and has no issues at this time.
--- NOTE | 2022-03-08 22:40 | EXP.DC.SUM ---
General Admission date:: 03/04/22 Discharge date: 03/06/22 HPI HPI HPI: 86-year-old female with history of hypokalemia, atrial fibrillation on Eliquis, and currently being treated for C. difficile.? She is brought in due to accidental medication overdose.? She has all her medications in a blister pack, her daughter states she called and noticed that she was confused and I reviewed her medications and saw that she had taken all of her medications for the day as well as 3 days worth of doses for oral vancomycin.? Currently she does exhibit some mild confusion, denies fevers, chills, nausea, vomiting, palpitations, lightheadedness or dizziness or any other symptoms at this time.? Medications that she appears taken in excess include diltiazem 240 mg both doses for the day were taken at once in conjunction with 100 mg of metoprolol.? These were also taken with other blood pressure medication of triamterene hydrochlorothiazide.? She is noted to be bradycardic at arrival however awake alert mentating normally aside from mild confusion and blood pressure is maintained above 100 systolic. (above as per ER physician) She is feeling a little bit better this morning. Her family states her confusion has improved. Her creatinine was elevated and has improved this morning. She continues with loose stools. Hospital Course Hospital Course Hospital Course: The patient was admitted and hydrated. Her renal function improved and her vitals remained normal. Stool panel was ordered to recheck for C. difficile. By 03/06/2022, she stated she was feeling better and was going home. She was eating without difficulty and ambulated around the room. Her renal function continued to improve. Her urine culture returned showing multiple organisms suggesting contamination. Stool panel was not able to be collected. She was stable to be discharged home. Exam Data for Last 24 hours Vital signs and Labs for Last 24 Hours: Temp Pulse Resp BP Pulse Ox 97.6 F 98 H 19 121/58 L 96 03/06/22 08:00 03/06/22 08:00 03/06/22 08:00 03/06/22 08:00 03/06/22 08:00 I & O for Last 24 hours: Intake & Output 03/06/22 03/07/22 03/08/22 03/09/22 11:59 11:59 11:59 11:59 Intake Total 840 / 840 Output Total 300 / 300 Balance 540 / 540 Weight 138 lb 7.91 oz Narrative: Constitutional Constitutional: no acute distress *Routine HEENT Exam Head: Present normocephalic and atraumatic Eye: Present EOMI and PERRL ENT: Present mucous membranes moist *Routine Neck Exam Neck: Present supple and full ROM *Routine Respiratory Exam Respiratory: Present CTA bilaterally *Routine Cardiovascular Exam Cardiovascular: Present irregularly irregular *Routine Abdominal Exam Abdominal: Present soft and normoactive bowel sounds; Absent tenderness *Routine Rectal Exam Rectal:: deferred *Routine Genitalia Exam Genitalia:: deferred *Routine Extremities Exam Extremities: Absent cyanosis, clubbing or edema *Routine Skin Exam Skin: Present intact; Absent erythema *Routine Neurological Exam Neurological: Present alert and oriented X3 DS: Diagnosis Discharge Diagnosis (1) HLD (hyperlipidemia): Status: Chronic (2) Valvular heart disease: Status: Chronic (3) Memory deficit: Status: Acute (4) C. difficile colitis: Status: Acute (5) Acute kidney injury: Status: Acute (6) Anxiety: Status: Chronic (7) Altered mental status: Status: Acute (8) Accidental medication overdose: Status: Acute Meds Home Medications and Allergies Home Medications Medication Instructions Recorded Confirmed Type atorvastatin 20 mg tablet 20 mg PO HS Cholesterol #30 tabs 12/01/19 03/04/22 Rx aspirin 81 mg tablet,delayed 81 mg PO HS CAD 12/11/19 03/04/22 History release (Adult Low Dose Aspirin) quetiapine 25 mg tablet 25 mg PO HS MOOD 01/13/20 03/04/22 History diltiazem HCl 240 mg 240 mg PO BID HEART RATE 02/01/22 03/05/22 History
== END 2022-03-06 10:07 | disposition home or self-care (01) ==
LOC: ER 16:10 → 2ND 17:02
PROVIDERS: Admitting Provider Family Medicine; Emergency Provider Emergency Medicine; PCP Family Medicine; Visit Provider Family Medicine
DX: T46.1X1A Poisoning by calcium-channel blockers, accidental (unintentional), initial encounter (principal); T44.7X1A Poisoning by beta-adrenoreceptor antagonists, accidental (unintentional), initial encounter; T50.2X1A Poisoning by carbonic-anhydrase inhibitors, benzothiadiazides and other diuretics, accidental (unintentional), initial encounter; R00.1 Bradycardia, unspecified; N17.9 Acute kidney failure, unspecified; E87.6 Hypokalemia; I48.91 Unspecified atrial fibrillation; Z20.822 Contact with and (suspected) exposure to COVID-19
CPT/HCPCS: G0378; 36415; 71045; 80048; 80053; 81001; 83735; 84484; 85025; 87086; 93005; 99285; C9803; J3370; U0003; U0005

== ENCOUNTER → 2022-06-30 11:30 | Outpatient (CLI) | payer MEDICARE, OTHER, SELFPAY ==
[2022-06-30 18:46] LABS: Basophils # 0.1 K/mm3 (0-0.2); Basophils % 1.8 % (0.1-2.0); Eosinophils # 0.2 K/mm3 (0.0-0.4); Eosinophils % 2.5 % (0.1-12.0); Hematocrit 40.2 % (37.0-47.0); Hemoglobin 12.8 g/dL (12.2-16.2); Lymphocytes # 1.8 K/mm3 (0.7-4.5); Lymphocytes % 29.3 % (10-50); Mean Corpuscular HGB Conc 31.8 g/dL (31.8-35.4); Mean Corpuscular Hemoglobin 28.7 pg (27.0-31.2); Monocytes # 0.4 K/mm3 (0.1-1.0); Neutrophils # 3.7 K/mm3 (1.8-7.8); Neutrophils % 59.4 % (37.0-80.0); Platelet Count 386 K/mm3 (142-424); Red Blood Count 4.46 M/mm3 (4.20-5.40); Red Cell Distribution Width 15.1 % (11.5-17.5); White Blood Count 6.2 K/mm3 (4.8-10.8)
[2022-06-30 19:07] LABS: Alanine Aminotransferase 19 U/L (12-78); Albumin Level 4.3 g/dl (3.5-5.0); Albumin/Globulin Ratio 1.9 (1.1-1.8); Alkaline Phosphatase 67 U/L (38-126); Aspartate Amino Transferase 27 U/L (14-36); Bilirubin,Total 0.4 mg/dl (0.2-1.3); Blood Urea Nitrogen 20 mg/dl (7-17); Calcium 9.4 mg/dl (8.4-10.2); Carbon Dioxide 31 mmol/L (22.0-30.0); Chloride 103 mmol/L (98-107); Estimated Glomerular Filt Rate 30 ml/min (>60); GFR (African American) 37 ML/MIN (>60); Globulin 2.3 g/dL (1.3-3.2); Glucose 107 mg/dl (74-100); Sodium 141 mmol/L (136-145); Total Protein,Serum 6.6 g/dl (6.3-8.2)
== END ==
PROVIDERS: PCP Family Medicine; Visit Provider Family Medicine
DX: F03.90 Unspecified dementia, unspecified severity, without behavioral disturbance, psychotic disturbance, mood disturbance, and anxiety (principal); R41.3 Other amnesia; I10 Essential (primary) hypertension
CPT/HCPCS: 80053; 85025

== ENCOUNTER → 2022-10-31 12:00 | Outpatient (CLI) | payer MEDICARE, OTHER, SELFPAY ==
[2022-10-31 18:42] LABS: Alanine Aminotransferase 23 U/L (12-78); Albumin Level 4.2 g/dl (3.5-5.0); Albumin/Globulin Ratio 1.9 (1.1-1.8); Alkaline Phosphatase 75 U/L (38-126); Aspartate Amino Transferase 54 U/L (14-36); Bilirubin,Total 0.5 mg/dl (0.2-1.3); Blood Urea Nitrogen 27 mg/dl (7-17); Calcium 9.2 mg/dl (8.4-10.2); Carbon Dioxide 27 mmol/L (22.0-30.0); Chloride 98 mmol/L (98-107); Estimated Glomerular Filt Rate 28 ml/min (>60); GFR (African American) 34 ML/MIN (>60); Globulin 2.2 g/dL (1.3-3.2); Glucose 101 mg/dl (74-100); Sodium 139 mmol/L (136-145); Total Protein,Serum 6.4 g/dl (6.3-8.2)
[2022-10-31 19:10] LABS: Thyroid Stimulating Hormone 0.92 uIU/mL (0.465-4.68)
[2022-10-31 19:29] LABS: Vitamin B12 270 pg/mL (239-931)
== END ==
PROVIDERS: PCP Family Medicine; Visit Provider Family Medicine
DX: N28.9 Disorder of kidney and ureter, unspecified (principal); R41.3 Other amnesia; I10 Essential (primary) hypertension
CPT/HCPCS: 80053; 82607; 84443

== ENCOUNTER → 2022-12-08 08:37 | Outpatient (CLI) | payer MEDICARE, OTHER, SELFPAY | PROVIDERS: Visit Provider Family Medicine | DX: R31.0 Gross hematuria (principal) | CPT/HCPCS: 87086 ==

== ENCOUNTER 2023-02-24 12:23 | Emergency (ER) | payer MEDICARE, OTHER, SELFPAY ==
[2023-02-24 12:23] VITALS: BP 139/70; PULSE 86; RESP 17; TEMP 36.6; O2SAT 96; BMI 26.9
--- NOTE | 2023-02-24 12:55 | EXP.UTC ---
Discharge Plan Disposition Patient Disposition: Home, Self-Care Condition: Good Prescriptions Prescriptions: New cephalexin [cephalexin] 500 mg tablet 500 mg PO BID 7 Days Qty: 14 0RF No Action aspirin [Adult Low Dose Aspirin] 81 mg tablet,delayed release (DR/EC) 81 mg PO HS Eliquis 2.5 mg tablet See Rx Instructions .ROUTE .COMPLEX Qty: 60 5RF Dose Instruction: TAKE 1 TABLET BY MOUTH TWICE DAILY Rx Instructions: TAKE 1 TABLET BY MOUTH TWICE DAILY diazepam 2 mg tablet 2 mg PO TID PRN (Reason: anxiety) Qty: 90 2RF diltiazem HCl 240 mg capsule,extended release 24hr See Rx Instructions .ROUTE .COMPLEX Qty: 60 5RF Dose Instruction: TAKE 1 CAPSULE BY MOUTH TWICE DAILY Rx Instructions: TAKE 1 CAPSULE BY MOUTH TWICE DAILY quetiapine 25 mg tablet See Rx Instructions .ROUTE .COMPLEX Qty: 30 5RF Dose Instruction: TAKE 1 TABLET BY MOUTH AT BEDTIME Rx Instructions: TAKE 1 TABLET BY MOUTH AT BEDTIME metoprolol succinate 100 mg tablet extended release 24 hr See Rx Instructions .ROUTE .COMPLEX Qty: 30 5RF Dose Instruction: TAKE 1 TABLET BY MOUTH DAILY Rx Instructions: TAKE 1 TABLET BY MOUTH DAILY donepezil 5 mg tablet See Rx Instructions .ROUTE .COMPLEX Qty: 30 5RF Dose Instruction: TAKE 1 TABLET BY MOUTH AT BEDTIME Rx Instructions: TAKE 1 TABLET BY MOUTH AT BEDTIME atorvastatin 20 mg tablet See Rx Instructions .ROUTE .COMPLEX Qty: 30 4RF Dose Instruction: TAKE 1 TABLET BY MOUTH AT BEDTIME Rx Instructions: TAKE 1 TABLET BY MOUTH AT BEDTIME triamterene-hydrochlorothiazid 37.5-25 mg tablet See Rx Instructions .ROUTE .COMPLEX Qty: 45 0RF Dose Instruction: TAKE 1/2 TABLET BY MOUTH ONCE DAILY Rx Instructions: TAKE 1/2 TABLET BY MOUTH ONCE DAILY Referrals Follow up/Referrals: Maurice Andrade MD [Primary Care Provider] - See instructions Activity Restrictions/Add. Instructions Additional Instructions/Restrictions: Increase fluids, water and not soda or tea. Can drink cranberry juice Wipe front to back Wear cotton underwear Empty bladder after intercourse Start antibiotics immediately and make sure you take the full course although you may start to see improvement over the next 48 hours. You can eat yogurt to decrease diarrhea or yeast infection caused by the antibiotic Be sure to follow-up anytime for new or worsening symptoms in 48 hours for wound urine culture results be sure to let you PCP no recent urine for culture so they can request records and ensure that you have appropriate antibiotic if you are not getting better or getting worse. If symptoms worsen or do not improve return or be seen in the ER. Follow-up with primary care this week. Clinical Impressions Clinical Impression: Acute UTI Instructions Patient Instructions: DI for Urinary Tract Infection (UTI) Discharge ED Provider: Manda ([facility])Darrell [facility] [place] HPI General Stated complaint: possible UTI Mode of Arrival: Ambulatory Source of Information: Patient Limitations: No Limitations Time Seen by Provider: 02/24/23 12:55 Description of Symptoms (Recalled from Triage Doc. by RN): Patient reports blood in urine. Not sure when it started. States they did an at home urine test that was positive for HEENT Symptoms (Recalled from RN notes): No Resp Symptoms (Recalled from RN notes): No Skin Symptoms (Recalled from RN notes): No MS Symptoms (Recalled from RN notes): No Functional Status (Recalled from RN notes): wnl History of Present Illness Provider Complaint: 87 yr old female presents for blood in urine, pt states no other symptoms. daughter states she took a home test and it was positive for leukocytes. Related Data Home Medications Medication Instructions Recorded Confirmed aspirin 81 mg tablet,delayed 81 mg PO HS CAD 12/11/19 12/26/22 release (Adult Low Dose Aspirin) Previous Rx's Medication Instru
[2023-02-24 13:03] LABS: Microscopic, Urine URINE MICROSCOPIC (MICROSCOPIC)
[2023-02-24 13:06] LABS: Appearance,Urine CLEAR (Clear); Bilirubin,Urine Negative (Negative); Blood, Urine 2+ (Negative); Color,Urine YELLOW (Yellow); Glucose,Urine (UA) Negative (Negative); Ketones,Urine Negative (Negative); Leukocyte Esterase,Urine 2+ (Negative); Nitrate,Urine Negative (Negative); PH,Urine 6.5 (5.0-8.5); Protein,Urine Negative (Negative); Specific Gravity, Urine <= 1.005 (1.005-1.030); Urobilinogen,Urine 0.2 EU/dl (0.2)
[2023-02-24 13:22] VITALS: BP 139/70; PULSE 81; RESP 19; TEMP 36.4; O2SAT 99
[2023-02-24 13:32] LABS: Bacteria,Urine Trace /lpf
== END 2023-02-24 13:24 | disposition home or self-care (01) ==
PROVIDERS: Emergency Provider Nurse Practitioner Family; PCP Family Medicine
DX: N39.0 Urinary tract infection, site not specified (principal); R31.9 Hematuria, unspecified; I10 Essential (primary) hypertension; E78.5 Hyperlipidemia, unspecified; I48.0 Paroxysmal atrial fibrillation; F41.9 Anxiety disorder, unspecified; Z79.01 Long term (current) use of anticoagulants
CPT/HCPCS: 81001; 87086; 87088; 87186; 99204; 99212; G0463

== ENCOUNTER → 2023-02-28 11:26 | Outpatient (CLI) | payer MEDICARE, OTHER, SELFPAY ==
[2023-02-27 20:41] LABS: Basophils # 0.1 K/mm3 (0-0.2); Basophils % 0.7 % (0.1-2.0); Eosinophils # 0.2 K/mm3 (0.0-0.4); Eosinophils % 3.2 % (0.1-12.0); Hematocrit 40.6 % (37.0-47.0); Hemoglobin 12.8 g/dL (12.2-16.2); Lymphocytes # 2.1 K/mm3 (0.7-4.5); Lymphocytes % 30.4 % (10-50); Mean Corpuscular HGB Conc 31.6 g/dL (31.8-35.4); Mean Corpuscular Hemoglobin 28.4 pg (27.0-31.2); Mean Corpuscular Volume 89.9 fl (81-99); Mean Platelet Volume 8.8 fl (7.4-10.4); Monocytes # 0.5 K/mm3 (0.1-1.0); Neutrophils # 4.1 K/mm3 (1.8-7.8); Neutrophils % 58.7 % (37.0-80.0); Platelet Count 280 K/mm3 (142-424); Red Blood Count 4.51 M/mm3 (4.20-5.40); Red Cell Distribution Width 13.9 % (11.5-17.5); White Blood Count 6.9 K/mm3 (4.8-10.8)
[2023-02-27 21:02] LABS: Alanine Aminotransferase 21 U/L (12-78); Albumin Level 4.8 g/dl (3.5-5.0); Albumin/Globulin Ratio 2.1 (1.1-1.8); Alkaline Phosphatase 85 U/L (38-126); Aspartate Amino Transferase 33 U/L (14-36); Bilirubin,Total 0.6 mg/dl (0.2-1.3); Blood Urea Nitrogen 18 mg/dl (7-17); Calcium 10.1 mg/dl (8.4-10.2); Carbon Dioxide 28 mmol/L (22.0-30.0); Chloride 93 mmol/L (98-107); Estimated Glomerular Filt Rate 35 ml/min (>60); GFR (African American) 43 ML/MIN (>60); Globulin 2.3 g/dL (1.3-3.2); Glucose 106 mg/dl (74-100); Sodium 131 mmol/L (136-145); Total Protein,Serum 7.1 g/dl (6.3-8.2)
== END ==
PROVIDERS: PCP Family Medicine; Visit Provider Family Medicine
DX: I10 Essential (primary) hypertension (principal); K92.1 Melena
CPT/HCPCS: 80053; 85025

== ENCOUNTER → 2023-03-05 13:36 | Outpatient (CLI) | payer MEDICARE, OTHER, SELFPAY ==
--- NOTE | 2023-03-05 13:40 | CT_ITS ---
FINAL REPORT TECHNIQUE: Thin section axial images were obtained from the lung bases to the pubic symphysis without IV contrast. Coronal and sagittal reconstruction images were obtained from the axial data. Exam was performed using dose reduction technique. CLINICAL HISTORY: blood in stool COMPARISON: None. None FINDINGS: There are no renal or ureteral stones. There is no hydronephrosis or perinephric stranding. There are several small, partially exophytic, hypodense right renal lesions. These are incompletely evaluated on this exam. Gallstones are noted in the gallbladder. The remaining unenhanced solid abdominal organs are unremarkable. There is a small hiatal hernia. No evidence of small bowel obstruction. The appendix is normal. Moderate retained stool is noted. There are a few scattered colonic diverticula without evidence of diverticulitis. The uterus and ovaries are unremarkable for age. There is no lymphadenopathy or ascites. No acute osseous abnormality is identified. IMPRESSION: No renal or ureteral stones. No hydronephrosis. Moderate retained stool. Diverticulosis without evidence of diverticulitis. Authenticated and ERN
== END ==
PROVIDERS: PCP Family Medicine; Visit Provider Family Medicine
DX: K92.1 Melena (principal)
CPT/HCPCS: 74176

== ENCOUNTER → 2023-03-06 23:39 | Outpatient (CLI) | payer MEDICARE, OTHER, SELFPAY | PROVIDERS: PCP Family Medicine; Visit Provider Nurse Practitioner | DX: R31.0 Gross hematuria (principal); B96.89 Other specified bacterial agents as the cause of diseases classified elsewhere | CPT/HCPCS: 87086; 87088; 87186 ==

== ENCOUNTER 2023-04-09 17:17 | Emergency (ER) | payer MEDICARE, OTHER, SELFPAY ==
[2023-04-09 17:31] VITALS: BP 161/59; PULSE 57; O2SAT 100
[2023-04-09 17:36] VITALS: BMI 26.6
[2023-04-09 17:38] VITALS: BP 160/62; PULSE 55; RESP 15; TEMP 36.5; O2SAT 99; BMI 26.6
--- NOTE | 2023-04-09 17:38 | PC.NURSE ---
Dr. Key at [facility] for pt eval
--- NOTE | 2023-04-09 17:48 | HMH.EDGENADL ---
Discharge Plan Disposition Patient Disposition: Home, Self-Care Prescriptions Prescriptions: No Action polyethylene glycol 3350 17 gram/dose powder 17 g PO DAILY Qty: 850 2RF Eliquis 2.5 mg tablet 2.5 mg PO BID Qty: 60 5RF Rx Instructions: 2.5 mg orally twice a day; aspirin [Adult Low Dose Aspirin] 81 mg tablet,delayed release (DR/EC) 81 mg PO HS diltiazem HCl 240 mg capsule,extended release 24hr See Rx Instructions .ROUTE .COMPLEX Qty: 60 5RF Dose Instruction: TAKE 1 CAPSULE BY MOUTH TWICE DAILY Rx Instructions: TAKE 1 CAPSULE BY MOUTH TWICE DAILY quetiapine 25 mg tablet See Rx Instructions .ROUTE .COMPLEX Qty: 30 5RF Dose Instruction: TAKE 1 TABLET BY MOUTH AT BEDTIME Rx Instructions: TAKE 1 TABLET BY MOUTH AT BEDTIME metoprolol succinate 100 mg tablet extended release 24 hr See Rx Instructions .ROUTE .COMPLEX Qty: 30 5RF Dose Instruction: TAKE 1 TABLET BY MOUTH DAILY Rx Instructions: TAKE 1 TABLET BY MOUTH DAILY donepezil 5 mg tablet See Rx Instructions .ROUTE .COMPLEX Qty: 30 5RF Dose Instruction: TAKE 1 TABLET BY MOUTH AT BEDTIME Rx Instructions: TAKE 1 TABLET BY MOUTH AT BEDTIME atorvastatin 20 mg tablet See Rx Instructions .ROUTE .COMPLEX Qty: 30 4RF Dose Instruction: TAKE 1 TABLET BY MOUTH AT BEDTIME Rx Instructions: TAKE 1 TABLET BY MOUTH AT BEDTIME triamterene-hydrochlorothiazid 37.5-25 mg tablet See Rx Instructions .ROUTE .COMPLEX Qty: 45 0RF Dose Instruction: TAKE 1/2 TABLET BY MOUTH ONCE DAILY Rx Instructions: TAKE 1/2 TABLET BY MOUTH ONCE DAILY diazepam 2 mg tablet 2 mg PO TID PRN (Reason: anxiety) Qty: 90 2RF Referrals Follow up/Referrals: Raymond Joya MD [Primary Care Provider] - See instructions Activity Restrictions/Add. Instructions Additional Instructions/Restrictions: As discussed your physical exam labs and vital signs are all normal. Please keep your appoint with Dr. Andrade tomorrow at 1230 return with any worsening symptoms. Please hold your Eliquis as discussed until you are advised to restart your medication with Dr. Andrade. Clinical Impressions Clinical Impression: Hematochezia Instructions Patient Instructions: DI for Gastrointestinal Bleeding Discharge ED Provider: Anju Key General Adult HPI General Chief complaint: GI Bleed Stated complaint: rectal bleeding Time Seen by Provider: 04/09/23 17:37 Mode of Arrival: Ambulatory Source of Information: Patient and Relative Limitations: No Limitations Description of Symptoms (Recalled from ER Triage Doc. by RN): 87 yo F presents to ED with c/o rectal bleeding ongoing for 1 week. pt does take eliquis. pt reports blood on toilet paper, and in toilet bowel. pt reports blood is bright red. History of Present Illness HPI narrative: Patient is an 87-year-old female presenting today with hematochezia. She has a history of atrial fibrillation is on Eliquis. She had no abdominal pain she has had intermittent spotting from her rectum over the last several days to week and today had a significant mount of blood which she states may be up to a cup in her bathroom today. She had no diarrhea she had well formed stool. She denies any fevers or chills any other symptoms. No bleeding elsewhere or bruising elsewhere. Chart review shows she has a history of diverticulosis but she has no history of AVMs hemorrhoids etc. Related Data Home Medications Medication Instructions Recorded Confirmed aspirin 81 mg tablet,delayed 81 mg PO HS CAD 12/11/19 04/09/23 release (Adult Low Dose Aspirin) Previous Rx's Medication Instructions Recorded diltiazem HCl 240 mg See Rx Instructions .Route 01/16/23 capsule,extended release 24 hr .COMPLEX #60 caps donepezil 5 mg tablet See Rx Instructions .Route 01/16/23 .COMPLEX #30 tabs metoprolol succinate 100 mg See Rx Instructions .Route 01/16/23 tablet,extend
[2023-04-09 17:59] LABS: Basophils # 0.1 K/mm3 (0-0.2); Basophils % 0.6 % (0.1-2.0); Eosinophils # 0.3 K/mm3 (0.0-0.4); Eosinophils % 3.1 % (0.1-12.0); Hematocrit 39.2 % (37.0-47.0); Hemoglobin 13.4 g/dL (12.2-16.2); Lymphocytes # 2.1 K/mm3 (0.7-4.5); Mean Corpuscular HGB Conc 34.1 g/dL (31.8-35.4); Mean Corpuscular Volume 87.9 fl (81-99); Monocytes # 0.5 K/mm3 (0.1-1.0); Monocytes % 5.7 % (1.7-9.3); Neutrophils # 5.2 K/mm3 (1.8-7.8); Neutrophils % 64.5 % (37.0-80.0); Platelet Count 254 K/mm3 (142-424); Red Blood Count 4.46 M/mm3 (4.20-5.40); Red Cell Distribution Width 13.8 % (11.5-17.5); White Blood Count 8.1 K/mm3 (4.8-10.8)
[2023-04-09 18:01] VITALS: BP 166/57; PULSE 51; O2SAT 99
[2023-04-09 18:06] LABS: Chloride 100 mmol/L (98-107); Potassium 3.8 mmoL/L (3.5-5.1); Sodium 138 mmol/L (136-145)
[2023-04-09 18:08] LABS: Alanine Aminotransferase 25 U/L (12-78); Albumin/Globulin Ratio 1.9 (1.1-1.8); Alkaline Phosphatase 69 U/L (38-126); Anion Gap 14.8 mEq/L (5-15); Aspartate Amino Transferase 38 U/L (14-36); Bilirubin,Total 0.4 mg/dl (0.2-1.3); Blood Urea Nitrogen 20 mg/dl (7-17); Calcium 9.3 mg/dl (8.4-10.2); Carbon Dioxide 27 mmol/L (22.0-30.0); Creatinine Clearance Estimated 30 mL/min (50-200); Estimated Glomerular Filt Rate 33 ml/min (>60); GFR (African American) 40 ML/MIN (>60); Globulin 2.6 g/dL (1.3-3.2); Glucose 115 mg/dl (74-100); Total Protein,Serum 7.6 g/dl (6.3-8.2)
[2023-04-09 18:22] LABS: Activated Partial Thrombo Time 27.3 seconds (22.8-30.6); INR 1.06 (0.9-1.1); Prothrombin Time 11.4 seconds (10.1-12.5)
[2023-04-09 18:30] VITALS: BP 166/64; PULSE 48; O2SAT 99
[2023-04-09 18:42] VITALS: BP 166/64; PULSE 51; RESP 19; TEMP 36.7
== END 2023-04-09 18:43 | disposition home or self-care (01) ==
PROVIDERS: Emergency Provider Student in an Organized Health Care Education/Training Program; PCP Family Medicine
DX: K92.1 Melena (principal); I48.0 Paroxysmal atrial fibrillation; I11.9 Hypertensive heart disease without heart failure; E78.5 Hyperlipidemia, unspecified; Z79.01 Long term (current) use of anticoagulants
CPT/HCPCS: 80053; 85025; 85610; 85730; 86850; 99284

== ENCOUNTER 2023-04-30 07:05 | Day surgery (SDC) | payer MEDICARE, OTHER, SELFPAY ==
[2023-04-27 12:57] VITALS: BMI 24.0
[2023-04-30 07:20] VITALS: BP 133/50; PULSE 91; RESP 18; TEMP 36.2; O2SAT 99
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
[2023-04-30 08:10] VITALS: O2SAT 98
[2023-04-30 08:55] VITALS: BP 84/32; PULSE 84; RESP 17; TEMP 36.3; O2SAT 96
--- NOTE | 2023-04-30 08:59 | HMH.SCOPE ---
Procedure: Date: 04/30/23 Patient Date of :: 1935 Procedure Performed:: Partial colonoscopy with hemorrhoid banding and polypectomy Indications:: Patient is an 87-year-old female with history of diverticulosis, paroxysmal atrial fibrillation, tricuspid regurgitation, on Eliquis and aspirin. She is referred for symptoms of hematochezia. She has had several episodes of painless rectal bleeding not necessarily during bowel movements. Seems to be more often in the evening. It appears as though she has never had previous colonoscopy. Unclear as to the etiology of the occasional hematochezia. This could be merely internal hemorrhoids. I discussed with the family potentially proceeding with colonoscopy. They wish to forego full colonoscopy due to the bowel prep being too much on the patient. I discussed other alternative options including possible administration of enemas and flexible sigmoidoscopy. I did explain that there is a possibility of a more proximal lesion which may be missed. However, if this is merely internal hemorrhoids this would be able to be evaluated using sigmoidoscopy and possible hemorrhoid banding. Performing Provider:: Lewis Field MD Referring Provider:: John Andrade MD Sedation:: MAC sedation Procedure:: Patient history was obtained and appropriate physical examination was performed. Patient's medications and allergies were reviewed. Informed consent was obtained after explaining the benefits, alternatives, and risks of the procedure including, but not limited to, bleeding, perforation, missed lesions, and adverse reaction to anesthesia medications. Patient was transported to endoscopy procedure room. Patient was connected to monitoring devices. Throughout the procedure the patient's blood pressure, pulse, and oxygen saturations were monitored continuously. Patient identification and planned procedure were verified by the staff. Patient was positioned in lateral decubitus position. Digital anorectal exam was performed. Variable stiffness Olympus colonoscope was inserted and advanced under direct visualization. It was actually able to be advanced to the transverse colon as colonic preparation was fairly good. There were a few focal areas of stool but overall visualization looked good. Colonoscope was slowly withdrawn through the colon with careful surveillance. There was some rare sigmoid diverticuli. In the sigmoid colon there was a sessile slightly irritated polyp which was removed ultimately using cold snare. Initial attempt was made at hot snare but this appeared to merely shave off the superficial tissue. It was removed in its entirety with cold snare. Hemoclip was deployed for assurance of hemostasis. There were some rare diverticuli. To the rectosigmoid region there were some diminutive polyps, likely hyperplastic, 2 of which were removed with cold snare and 1 with biopsy forceps. Retroflexion within the rectum revealed internal hemorrhoids. There was one hemorrhoid pile which revealed exudate internally likely consistent with previous bleeding. No active bleeding at this time. Hemorrhoid was somewhat prolapsing. Plan was made for banding. Colonoscope was exchanged for the Olympus endoscope and the super 7 banding device was attached. The endoscope was inserted via the anus and retroflexion revealed this exudative hemorrhoid pile. A couple of bands were deployed for banding of this hemorrhoid pile. Minimal oozing initially but good hemostasis. Endoscope was withdrawn. Findings:: Polyps as noted above Rare sigmoid diverticuli Internal hemorrhoids with area of exudative hemorrhoid pile, banded Recommendations:: Follow-up on pathology Complications:: None Estimated blood obtained (mL): 2 Colonoscopy Component Colonoscopy Component Was a colonoscopy performed during today's procedure?: No
[2023-04-30 09:05] VITALS: BP 92/34; PULSE 74; RESP 16; O2SAT 96
[2023-04-30 09:15] VITALS: BP 106/76; PULSE 73; RESP 17; O2SAT 97
[2023-04-30 09:25] VITALS: BP 107/42; PULSE 70; RESP 16; O2SAT 97
== END 2023-04-30 09:35 | disposition home or self-care (01) ==
PROVIDERS: PCP Family Medicine; Visit Provider Surgery
PROC: 0DJD8ZZ Inspection of Lower Intestinal Tract, Via Natural or Artificial Opening Endoscopic (ICD-10-PCS; CPT 45330; principal; 2023-04-30 08:30)
DX: K92.1 Melena (principal); K64.8 Other hemorrhoids; D12.5 Benign neoplasm of sigmoid colon
CPT/HCPCS: 45380; 45385; J2704

== ENCOUNTER → 2023-05-15 23:26 | Outpatient (CLI) | payer MEDICARE, OTHER, SELFPAY ==
[2023-05-15 18:40] LABS: Basophils % 0.3 % (0.1-2.0); Eosinophils # 0.2 K/mm3 (0.0-0.4); Eosinophils % 2.3 % (0.1-12.0); Hematocrit 37.5 % (37.0-47.0); Hemoglobin 12.1 g/dL (12.2-16.2); Lymphocytes # 1.5 K/mm3 (0.7-4.5); Lymphocytes % 24.1 % (10-50); Mean Corpuscular HGB Conc 32.2 g/dL (31.8-35.4); Mean Corpuscular Hemoglobin 29.3 pg (27.0-31.2); Mean Corpuscular Volume 90.9 fl (81-99); Mean Platelet Volume 8.8 fl (7.4-10.4); Monocytes # 0.4 K/mm3 (0.1-1.0); Monocytes % 6.3 % (1.7-9.3); Neutrophils # 4.2 K/mm3 (1.8-7.8); Neutrophils % 66.9 % (37.0-80.0); Platelet Count 281 K/mm3 (142-424); Red Blood Count 4.13 M/mm3 (4.20-5.40); Red Cell Distribution Width 13.8 % (11.5-17.5); White Blood Count 6.3 K/mm3 (4.8-10.8)
== END ==
PROVIDERS: PCP Family Medicine; Visit Provider Family Medicine
DX: R31.0 Gross hematuria (principal)
CPT/HCPCS: 85025

== ENCOUNTER → 2023-05-18 10:26 | Outpatient (CLI) | payer MEDICARE, OTHER, SELFPAY ==
--- NOTE | 2023-05-18 10:26 | US_ITS ---
PROCEDURE: US PELVIC CLINICAL INDICATION: COMPARISON: No exams were available for comparison FINDINGS: Transabdominal sonographic images of the pelvis were obtained. Uterus: 6.2 cm x 2.8 cm x 5.1 cm. Anteverted uterus, endometrium 2.8 mm. There appears to be peripheral calcifications around the uterus consistent with degenerative changes. Left ovary: 1.6 cm x 1.8 cm x 1.8 cm. Right ovary: Not visualized Fluid in the cul-de-sac. IMPRESSION: 1. Anteverted uterus normal in shape and size. The endometrium is thin. 2. Calcifications and degenerative changes within the uterus consistent with the patient's age. 3. The left ovary is seen and appears normal. The right ovary is not visualized. 4. No fluid in the cul-de-sac. Dictated by: Dandre Rodriguez MD 05/18/2023 13:52 Dandre Rodriguez MD in OV 05/18/2023 13:52
== END ==
PROVIDERS: PCP Family Medicine; Visit Provider Family Medicine
DX: R31.9 Hematuria, unspecified (principal)
CPT/HCPCS: 76856

== ENCOUNTER 2023-07-17 22:37 | Outpatient (CLI) | payer MEDICARE, OTHER, SELFPAY | END 2023-07-17 23:59 | LOC: LAB.DROPOF 22:37 | PROVIDERS: PCP Family Medicine; Visit Provider Family Medicine | DX: N39.0 Urinary tract infection, site not specified (principal); B95.2 Enterococcus as the cause of diseases classified elsewhere | CPT/HCPCS: 87086 ==

== ENCOUNTER 2023-11-13 17:10 | Outpatient (CLI) | payer MEDICARE, OTHER, SELFPAY ==
[2023-11-13 20:08] LABS: Basophils # 0.1 K/mm3 (0-0.2); Basophils % 1.2 % (0.1-2.0); Eosinophils # 0.2 K/mm3 (0.0-0.4); Eosinophils % 3.8 % (0.1-12.0); Hematocrit 36.2 % (37.0-47.0); Hemoglobin 11.6 g/dL (12.2-16.2); Lymphocytes # 1.6 K/mm3 (0.7-4.5); Lymphocytes % 28.1 % (10-50); Mean Corpuscular HGB Conc 32.1 g/dL (31.8-35.4); Mean Corpuscular Hemoglobin 28.7 pg (27.0-31.2); Mean Corpuscular Volume 89.3 fl (81-99); Mean Platelet Volume 8.5 fl (7.4-10.4); Monocytes # 0.4 K/mm3 (0.1-1.0); Monocytes % 6.7 % (1.7-9.3); Neutrophils # 3.4 K/mm3 (1.8-7.8); Neutrophils % 60.1 % (37.0-80.0); Platelet Count 268 K/mm3 (142-424); Red Blood Count 4.06 M/mm3 (4.20-5.40); Red Cell Distribution Width 14.6 % (11.5-17.5); White Blood Count 5.7 K/mm3 (4.8-10.8)
[2023-11-13 20:28] LABS: Alanine Aminotransferase 18 U/L (12-78); Albumin Level 4.6 g/dl (3.5-5.0); Albumin/Globulin Ratio 2.3 (1.1-1.8); Alkaline Phosphatase 79 U/L (38-126); Anion Gap 13.1 mEq/L (5-15); Aspartate Amino Transferase 32 U/L (14-36); Bilirubin,Total 0.6 mg/dl (0.2-1.3); Blood Urea Nitrogen 25 mg/dl (7-17); Calcium 9.9 mg/dl (8.4-10.2); Carbon Dioxide 28 mmol/L (22.0-30.0); Chloride 101 mmol/L (98-107); Estimated Glomerular Filt Rate 30 ml/min (>60); GFR (African American) 37 ML/MIN (>60); Glucose 91 mg/dl (74-100); Potassium 4.1 mmoL/L (3.5-5.1); Sodium 138 mmol/L (136-145); Total Protein,Serum 6.6 g/dl (6.3-8.2)
== END 2023-11-13 23:59 | disposition home or self-care (01) ==
LOC: LAB.DROPOF 11-14 17:11
PROVIDERS: PCP Family Medicine; Visit Provider Family Medicine
DX: D64.9 Anemia, unspecified (principal); N19 Unspecified kidney failure
CPT/HCPCS: 80053; 85025

== ENCOUNTER 2024-03-01 10:45 | Emergency (ER) | payer MEDICARE, OTHER, SELFPAY ==
[2024-03-01 11:20] VITALS: BP 147/81; PULSE 114; RESP 20; TEMP 36.6; O2SAT 96; BMI 27.1
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
[2024-03-01 11:36] LABS: Apearance,Urine Clear (Clear); Bilirubin,Urine Negative (Negative); Blood, Urine Negative (Negative); Color,Urine Yellow (Yellow); Glucose,Urine (UA) Negative (Negative); Ketones,Urine Negative (Negative); PH,Urine 7.5 (5.0-8.5); Protein,Urine Negative (Negative); Urobilinogen,Urine 0.2 EU/dl (0.2)
[2024-03-01 11:37] LABS: UTC Leukocyte Esterase,Urine 1+ (Negative); UTC Nitrate,Urine Negative (Negative)
[2024-03-01 11:59] VITALS: BP 147/81; PULSE 114; RESP 20; TEMP 36.6; O2SAT 96
== END 2024-03-01 12:02 | disposition home or self-care (01) ==
PROVIDERS: Emergency Provider Nurse Practitioner Family; PCP Family Medicine
DX: N39.0 Urinary tract infection, site not specified (principal); R31.9 Hematuria, unspecified; F03.90 Unspecified dementia, unspecified severity, without behavioral disturbance, psychotic disturbance, mood disturbance, and anxiety; I48.91 Unspecified atrial fibrillation; I10 Essential (primary) hypertension; E78.5 Hyperlipidemia, unspecified; I34.0 Nonrheumatic mitral (valve) insufficiency; I36.1 Nonrheumatic tricuspid (valve) insufficiency
CPT/HCPCS: 81003; 87086; 99212; 99214; G0463

== ENCOUNTER 2024-05-06 12:24 | Outpatient (CLI) | payer MEDICARE, OTHER, SELFPAY ==
[2024-05-06 18:39] LABS: Basophils # 0.1 K/mm3 (0-0.2); Basophils % 1.3 % (0.1-2.0); Eosinophils # 0.2 K/mm3 (0.0-0.4); Eosinophils % 3.2 % (0.1-12.0); Hematocrit 30.3 % (37.0-47.0); Hemoglobin 9.5 g/dL (12.2-16.2); Lymphocytes # 1.5 K/mm3 (0.7-4.5); Lymphocytes % 27.1 % (10-50); Mean Corpuscular HGB Conc 31.3 g/dL (31.8-35.4); Mean Corpuscular Volume 86.1 fl (81-99); Mean Platelet Volume 7.8 fl (7.4-10.4); Monocytes # 0.4 K/mm3 (0.1-1.0); Monocytes % 6.8 % (1.7-9.3); Neutrophils # 3.4 K/mm3 (1.8-7.8); Neutrophils % 61.7 % (37.0-80.0); Platelet Count 339 K/mm3 (142-424); Red Blood Count 3.52 M/mm3 (4.20-5.40); Red Cell Distribution Width 14.3 % (11.5-17.5); White Blood Count 5.5 K/mm3 (4.8-10.8)
[2024-05-06 19:11] LABS: Alanine Aminotransferase 15 U/L (12-78); Albumin Level 4.1 g/dl (3.5-5.0); Albumin/Globulin Ratio 2.3 (1.1-1.8); Alkaline Phosphatase 58 U/L (38-126); Anion Gap 11.2 mEq/L (5-15); Aspartate Amino Transferase 25 U/L (14-36); Bilirubin,Total 0.5 mg/dl (0.2-1.3); Blood Urea Nitrogen 28 mg/dl (7-17); Calcium 9.4 mg/dl (8.4-10.2); Carbon Dioxide 27 mmol/L (22.0-30.0); Chloride 104 mmol/L (98-107); Estimated Glomerular Filt Rate 28 ml/min (>60); GFR (African American) 34 ML/MIN (>60); Globulin 1.8 g/dL (1.3-3.2); Glucose 103 mg/dl (74-100); Potassium 4.2 mmoL/L (3.5-5.1); Sodium 138 mmol/L (136-145); Total Protein,Serum 5.9 g/dl (6.3-8.2)
== END 2024-05-06 23:59 | disposition home or self-care (01) ==
LOC: LAB.DROPOF 05-07 07:36
PROVIDERS: PCP Family Medicine; Visit Provider Family Medicine
DX: N28.9 Disorder of kidney and ureter, unspecified (principal)
CPT/HCPCS: 80053; 85025

== ENCOUNTER 2024-09-05 12:21 | Outpatient (CLI) | payer MEDICARE, OTHER, SELFPAY ==
[2024-09-05 12:47] LABS: Basophils # 0.1 K/mm3 (0-0.2); Basophils % 1.7 % (0.1-2.0); Eosinophils # 0.5 K/mm3 (0.0-0.4); Eosinophils % 6.4 % (0.1-12.0); Hematocrit 28.4 % (37.0-47.0); Hemoglobin 8.1 g/dL (12.2-16.2); Lymphocytes % 25.2 % (10-50); Mean Corpuscular HGB Conc 28.5 g/dL (31.8-35.4); Mean Corpuscular Hemoglobin 21.2 pg (27.0-31.2); Mean Corpuscular Volume 74.3 fl (81-99); Mean Platelet Volume 9.1 fl (7.4-10.4); Monocytes # 0.7 K/mm3 (0.1-1.0); Monocytes % 8.3 % (1.7-9.3); Neutrophils # 4.6 K/mm3 (1.8-7.8); Platelet Count 325 K/mm3 (142-424); Red Blood Count 3.82 M/mm3 (4.20-5.40); Red Cell Distribution Width 16.5 % (11.5-17.5); White Blood Count 7.9 K/mm3 (4.8-10.8)
[2024-09-05 13:21] LABS: Alanine Aminotransferase 15 U/L (12-78); Albumin Level 4.4 g/dl (3.5-5.0); Albumin/Globulin Ratio 2.2 (1.1-1.8); Alkaline Phosphatase 46 U/L (38-126); Anion Gap 15.6 mEq/L (5-15); Aspartate Amino Transferase 31 U/L (14-36); Bilirubin,Total 0.6 mg/dl (0.2-1.3); Blood Urea Nitrogen 29 mg/dl (7-17); Carbon Dioxide 23 mmol/L (22.0-30.0); Chloride 102 mmol/L (98-107); Estimated Glomerular Filt Rate 25 ml/min (>60); GFR (African American) 30 ML/MIN (>60); Glucose 93 mg/dl (74-100); Potassium 4.6 mmoL/L (3.5-5.1); Sodium 136 mmol/L (136-145); Total Protein,Serum 6.4 g/dl (6.3-8.2)
[2024-09-05 14:10] LABS: Vitamin B12 > 1000 pg/mL (239-931)
== END 2024-09-05 23:59 | disposition home or self-care (01) ==
LOC: LAB 12:22
PROVIDERS: PCP Family Medicine; Visit Provider Nurse Practitioner
DX: D51.9 Vitamin B12 deficiency anemia, unspecified (principal); D64.9 Anemia, unspecified
CPT/HCPCS: 36415; 80053; 82607; 85025

== ENCOUNTER 2024-10-08 13:34 | Outpatient (CLI) | payer MEDICARE, SELFPAY ==
[2024-10-08 14:48] LABS: Basophils # 0.1 K/mm3 (0-0.2); Basophils % 1.9 % (0.1-2.0); Eosinophils # 0.3 Kmm3 (0.0-0.4); Eosinophils % 4.7 % (0.1-12.0); Hematocrit 35.8 % (37.0-47.0); Hemoglobin 10.8 g/dL (12.2-16.2); Lymphocytes # 1.5 K/mm3 (0.7-4.5); Lymphocytes % 29.1 % (10-50); Mean Corpuscular HGB Conc 30.2 g/dL (31.8-35.4); Mean Corpuscular Hemoglobin 24.6 pg (27.0-31.2); Mean Corpuscular Volume 81.5 fl (81-99); Mean Platelet Volume 9.3 fl (7.4-10.4); Monocytes # 0.5 K/mm3 (0.1-1.0); Monocytes % 9.8 % (1.7-9.3); Neutrophils # 2.9 K/mm3 (1.8-7.8); Neutrophils % 54.3 % (37.0-80.0); Nucleated Red Blood Cells # 0 10^3/uL; Nucleated Red Blood Cells % 0 %; Platelet Count 239 K/mm3 (142-424); Red Blood Count 4.39 M/mm3 (4.20-5.40); Red Cell Distribution Width 24.8 % (11.5-17.5); Red Cell Distribution Width-SD 70.1 fL; Reticulocyte % (Auto) 1.1 % (0.9-3.2); White Blood Count 5.3 K/mm3 (4.8-10.8)
[2024-10-08 15:22] LABS: Alanine Aminotransferase 14 U/L (12-78); Albumin Level 4.6 g/dl (3.5-5.0); Alkaline Phosphatase 52 U/L (38-126); Anion Gap 7.1 mEq/L (5-15); Aspartate Amino Transferase 30 U/L (14-36); Bilirubin,Direct 0.3 mg/dl (0.0-0.4); Bilirubin,Indirect 0.3 mg/dL (0.0-0.9); Bilirubin,Total 0.6 mg/dl (0.2-1.3); Bilirubin,Unconjugated 0.3 mg/dL (0.0-1.1); Blood Urea Nitrogen 23 mg/dl (7-17); Calcium 9.6 mg/dl (8.4-10.2); Carbon Dioxide 27 mmol/L (22.0-30.0); Chloride 106 mmol/L (98-107); Chol/HDL Ratio 2.5 (1-3.5); Cholesterol 195 mg/dl (140-200); Direct LDL Cholesterol 79.87 mg/dL (100-129); Estimated Glomerular Filt Rate 30 ml/min (>60); GFR (African American) 37 ML/MIN (>60); Glucose 98 mg/dl (74-100); HDL Cholesterol 78 mg/dl (40-60); Potassium 4.1 mmoL/L (3.5-5.1); Sodium 136 mmol/L (136-145); Total Protein,Serum 6.4 g/dl (6.3-8.2); Triglycerides 119 mg/dl (30-150); VLDL Cholesterol 24 mg/dL (0-40)
[2024-10-08 15:30] LABS: Free T4 (Free Thyroxine) 0.73 ng/dl (0.78-2.19)
[2024-10-08 15:40] LABS: Thyroid Stimulating Hormone 0.69 uIU/mL (0.465-4.68)
[2024-10-08 16:00] LABS: Iron 67 ug/dL (37-170)
[2024-10-08 16:10] LABS: Total Iron Binding Capacity 365 ug/dL (265-497)
[2024-10-08 16:36] LABS: Ferritin 32.2 ng/ml (11.1-264)
== END 2024-10-08 23:59 | disposition home or self-care (01) ==
LOC: LAB 13:36
PROVIDERS: PCP Family Medicine; Visit Provider Physician Assistant
DX: D51.9 Vitamin B12 deficiency anemia, unspecified (principal); D64.9 Anemia, unspecified; E78.5 Hyperlipidemia, unspecified
CPT/HCPCS: 36415; 80048; 80061; 80076; 82728; 82746; 83540; 83550; 84439; 84443; 85025; 85044

== ENCOUNTER 2024-10-22 11:32 | Inpatient (IN) | payer MEDICARE, SELFPAY ==
[2024-10-22] VITALS (25 sets, daily range): BP systolic 92–153; BP diastolic 46–106; PULSE 38–101; RESP 11–19; TEMP 36.5–36.7; O2SAT 96–99; BMI 27.4; BMI 25.0
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
--- NOTE | 2024-10-22 11:55 | ECG_ITS ---
APPROVED REPORT Exam: Resting ECG HR:84 bpm ECG Measurements Heart Rate 84 AXES QRSd 85 QRS -14 QT 392 T -48 QTc 433 Conclusion ATRIAL FIBRILLATION NONSPECIFIC ST & T-WAVE ABNORMALITY ABNORMAL RHYTHM ECG UNCONFIRMED REPORT Electronically signed by : Geo Gonzalez, 10/22/2024 16:23:25
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
[2024-10-22 12:43] LABS: Basophils # 0.1 K/mm3 (0-0.2); Basophils % 1.9 % (0.1-2.0); Eosinophils # 0.3 Kmm3 (0.0-0.4); Hematocrit 40.1 % (37.0-47.0); Hemoglobin 12.5 g/dL (12.2-16.2); Immature Granulocytes # 0.01 10^3uL; Immature Granulocytes % 0.2 %; Lymphocytes # 1.8 K/mm3 (0.7-4.5); Lymphocytes % 34.2 % (10-50); Mean Corpuscular HGB Conc 31.2 g/dL (31.8-35.4); Mean Corpuscular Hemoglobin 25.6 pg (27.0-31.2); Mean Corpuscular Volume 82.2 fl (81-99); Mean Platelet Volume 9.6 fl (7.4-10.4); Monocytes # 0.6 K/mm3 (0.1-1.0); Monocytes % 10.4 % (1.7-9.3); Neutrophils # 2.6 K/mm3 (1.8-7.8); Neutrophils % 48.3 % (37.0-80.0); Nucleated Red Blood Cells # 0 10^3/uL; Nucleated Red Blood Cells % 0 %; Platelet Count 269 K/mm3 (142-424); Red Blood Count 4.88 M/mm3 (4.20-5.40); White Blood Count 5.4 K/mm3 (4.8-10.8)
[2024-10-22 12:46] LABS: Albumin Level 4.4 g/dl (3.5-5.0); Chloride 106 mmol/L (98-107); Sodium 138 mmol/L (136-145)
[2024-10-22 12:47] LABS: Potassium 3.5 mmoL/L (3.5-5.1)
[2024-10-22 12:49] LABS: Alanine Aminotransferase 18 U/L (12-78); Alkaline Phosphatase 59 U/L (38-126); Anion Gap 8.5 mEq/L (5-15); Aspartate Amino Transferase 38 U/L (14-36); Bilirubin,Total 0.3 mg/dl (0.2-1.3); Blood Urea Nitrogen 24 mg/dl (7-17); Carbon Dioxide 27 mmol/L (22.0-30.0); Estimated Glomerular Filt Rate 25 ml/min (>60); GFR (African American) 30 ML/MIN (>60); Globulin 2.2 g/dL (1.3-3.2); Total Protein,Serum 6.6 g/dl (6.3-8.2)
[2024-10-22 12:50] LABS: Activated Partial Thrombo Time 27.1 seconds (22.8-30.6); Calcium 9.9 mg/dl (8.4-10.2); Glucose 107 mg/dl (74-100); INR 1.04 (0.9-1.1); Prothrombin Time 11.6 seconds (10.1-12.5)
--- NOTE | 2024-10-22 12:50 | PC.NURSE ---
Dr Gonzalez s/w poison control at this time
--- NOTE | 2024-10-22 12:55 | ECG_ITS ---
APPROVED REPORT Exam: Resting ECG HR:38 bpm ECG Measurements Heart Rate 38 AXES QRSd 94 QRS 35 QT 491 T 51 QTc 411 Conclusion ATRIAL FIBRILLATION WITH SLOW VENTRICULAR RESPONSE NONSPECIFIC ST & T-WAVE ABNORMALITY CRITICAL TEST RESULT UNCONFIRMED REPORT Electronically signed by : Geo Gonzalez, 10/22/2024 16:23:00
--- NOTE | 2024-10-22 13:06 | PC.NURSE ---
Pt is on zoll pads, crash cart at bedside per dr. rodriguez's request. pt in a gown, family member at . Call light within reach.
--- NOTE | 2024-10-22 13:20 | PC.NURSE ---
Dr Gonzalez s/w Dr Vigil for admission. Pt is a pt of Dr Andrade ([facility] Dr Vigil asks that we ask Dr Andrade for admission for 1st refusal.
--- NOTE | 2024-10-22 13:31 | PC.NURSE ---
Dr Gonzaelz s/w Dr Cortes
[2024-10-22] MEDS: CALCIUM CHLORIDE 2 GM in 0.9 % SODIUM CHLORIDE 250 ML IV (13:35)
--- NOTE | 2024-10-22 13:35 | PC.NURSE ---
Dr Gonzalez s/w Dr Vigil for admission
[2024-10-22] MEDS: LACTATED RINGERS 1000ML 500 ML 999 ML IV (13:39)
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
--- NOTE | 2024-10-22 13:57 | PC.NURSE ---
Called house for admission. They are d/c a pt on the unit and will have a stat clean. Will notify when bed is ready
--- NOTE | 2024-10-22 14:58 | PC.NURSE ---
Report called to CHERISE Shanks on Med Surg.
--- NOTE | 2024-10-22 15:10 | PC.NURSE ---
arrived by stretcher from ED
--- NOTE | 2024-10-22 15:24 | PC.NURSE ---
Kathe from poison control called to check on status of pt, update given. @ this time states to continue w/ treating pt symptoms & to reach back out to them if pt does become unstable. Pt stable @ this time, resting in bed w/ family @ bedside.
[2024-10-22 16:11] LABS: HIV Combo NEGATIVE (Negative)
[2024-10-22 16:17] LABS: Hepatitis C Ab Qual. W/ RFX NEGATIVE (Negative)
--- NOTE | 2024-10-22 16:40 | PC.NURSE ---
dr cowan at bedside
[2024-10-22] MEDS: ATORVASTATIN 20MG TABLET 20 MG PO (21:09)
[2024-10-22] MEDS: QUETIAPINE 25MG TABLET 25 MG PO (21:10)
[2024-10-22] MEDS: DONEPEZIL 5MG TAB 5 MG PO (21:10)
[2024-10-23] VITALS (8 sets, daily range): BP systolic 96–140; BP diastolic 44–72; PULSE 50–70; RESP 14–18; TEMP 36.6–37.2; O2SAT 96–98; BMI 25.1
[2024-10-23 06:17] LABS: Basophils # 0.1 K/mm3 (0-0.2); Eosinophils # 0.3 Kmm3 (0.0-0.4); Immature Granulocytes # 0.01 10^3uL; Immature Granulocytes % 0.2 %; Lymphocytes # 1.8 K/mm3 (0.7-4.5); Mean Platelet Volume 9.7 fl (7.4-10.4); Monocytes # 0.6 K/mm3 (0.1-1.0); Neutrophils # 3.3 K/mm3 (1.8-7.8); Nucleated Red Blood Cells # 0 10^3/uL; Nucleated Red Blood Cells % 0 %
[2024-10-23 06:23] LABS: Albumin Level 3.4 g/dl (3.5-5.0); Chloride 109 mmol/L (98-107); Potassium 3.5 mmoL/L (3.5-5.1); Sodium 140 mmol/L (136-145)
[2024-10-23 06:26] LABS: Alanine Aminotransferase 14 U/L (12-78); Albumin/Globulin Ratio 1.7 (1.1-1.8); Alkaline Phosphatase 50 U/L (38-126); Anion Gap 6.5 mEq/L (5-15); Aspartate Amino Transferase 28 U/L (14-36); Bilirubin,Total 0.2 mg/dl (0.2-1.3); Blood Urea Nitrogen 25 mg/dl (7-17); Carbon Dioxide 28 mmol/L (22.0-30.0); Creatinine Clearance Estimated 24 mL/min (50-200); Estimated Glomerular Filt Rate 28 ml/min (>60); GFR (African American) 34 ML/MIN (>60); Total Protein,Serum 5.4 g/dl (6.3-8.2)
[2024-10-23 06:27] LABS: Calcium 9.9 mg/dl (8.4-10.2); Glucose 105 mg/dl (74-100); Magnesium 1.4 mg/dl (1.6-2.3)
[2024-10-23 06:55] LABS: Basophils % 1.3 % (0.1-2.0); Eosinophils % 5.3 % (0.1-12.0); Hematocrit 36.1 % (37.0-47.0); Lymphocytes % 29.2 % (10-50); Mean Corpuscular HGB Conc 30.7 g/dL (31.8-35.4); Mean Corpuscular Hemoglobin 25.5 pg (27.0-31.2); Mean Corpuscular Volume 82.8 fl (81-99); Platelet Count 234 K/mm3 (142-424); Red Blood Count 4.36 M/mm3 (4.20-5.40); Red Cell Distribution Width 23.7 % (11.5-17.5); White Blood Count 6.2 K/mm3 (4.8-10.8)
[2024-10-23 07:01] LABS: Hemoglobin 11.1 g/dL (12.2-16.2)
--- NOTE | 2024-10-23 07:01 | EXP.DC.SUM ---
General Admission date:: 10/22/24 Discharge date: 10/23/24 HPI HPI HPI: Ms. Alexander is a pleasant 88-year-old female with history of anxiety, CKD 4, A-fib on Eliquis, hypertension. She takes metoprolol and diltiazem for rate control. Reportedly this morning she accidentally took at least twice her double dose of medication for her diltiazem. Appears to have taken about 480 mg of her extended release diltiazem. Denies any thoughts of self-harm. Appears to be accidental per her report. Gets help with her meds, they are put in a pill organizer but she appears to have taken her morning and evening dose all at 1 time. Lives by herself. Has family that check on her daily. Denies chest pain, nausea, vomiting, diarrhea. No shortness of breath. Alert and oriented to person and place only. Has some mild cognitive impairment at baseline. Somewhat forgetful. Physically mobile and able to complete ADLs. Stable on room air. Case was discussed with poison control, recommended admission for further management and monitoring. On arrival to the floor, she denies any chest pain, shortness of breath, dizziness, blurry vision. Does have a heart rate in the 40s to 50s while in the ER. Blood pressure acceptable however with systolics in the 120s. Hospital Course Hospital Course Hospital Course: Patient presented after accidental ingestion of at least 2 times her normal diltiazem dose. Having some bradycardia in the ER with heart rate in the 40s. Discussed case with ER physician, request admission for monitoring overnight after discussion with poison control. I agreed to admit for telemetry and monitoring out of risk for bradycardia and hypotension. Monitored on telemetry with stable vitals. Adjustments made to medication. Stable for discharge home. Problems addressed as follows: Calcium channel hao overdose, accidental - Presented to the ER after taking full daily dose of diltiazem at 1 time. Necessitated monitoring for 24 hours on telemetry. Held diltiazem as well as beta-hao. Poison control was contacted from the ER, recommended monitoring for symptomatic bradycardia and potential need for external pacing. Received 2 g calcium gluconate in the ED. Calcium level remained normal at 9.9. Received 1 L of IV fluids. Condition stable during admission. CKD 4: Creatinine stable between 1.7 and 1.9 during admission. Appears to be at baseline. Making adequate urine. Atrial fibrillation Hypertension - Continue home Eliquis 5 mg twice daily.initially held metoprolol and diltiazem. Resume home metoprolol succinate 100 mg daily. Recommend adjusting diltiazem dose to 1 tablet in the morning and 2 tablets at night. Rate remained normal with stable blood pressure throughout duration of admission. Sleep disorder: Continue Seroquel 25 mg nightly Memory disorder: Continue donepezil 5 mg nightly Total time spent on discharge 32 minutes in counseling, documentation, chart review, and direct care with patient. Exam Data for Last 24 hours Vital signs and Labs for Last 24 Hours: Temp Pulse Resp BP Pulse Ox O2 Del Method 98.4 F 50 L 16 109/61 L 98 Room Air 10/23/24 04:00 10/23/24 06:00 10/23/24 06:00 10/23/24 06:00 10/23/24 04:00 10/23/24 06:00 Laboratory Results - last 24 hr 10/22/24 11:58: WBC 5.4, RBC 4.88, Hgb 12.5, Hct 40.1, MCV 82.2, MCH 25.6 L, MCHC 31.2 L, RDW TNP, Plt Count 269, MPV 9.6, Neut % (Auto) 48.3, Lymph % (Auto) 34.2, [place] % (Auto) 10.4 H, Eos % (Auto) 5.0, Baso % (Auto) 1.9, Neut # (Auto) 2.6, Lymph # (Auto) 1.8, [place] # (Auto) 0.6, Eos # (Auto) 0.3, Baso # (Auto) 0.1, PT 11.6, INR 1.04, APTT 27.1, Sodium 138, Potassium 3.5, Chloride 106, Carbon Dioxide 27, Anion Gap 8.5, BUN 24 H, Creatinine 1.90 H, Estimated GFR 25 L, Est GFR ( Amer) 30 L, Glucose 107 H, Calcium 9.9, Total Bilirubin 0.3, AST 38 H, ALT 18, Alkaline Phosphatase 59, Total Protein 6.6, Albumin 4.4, Globulin 2.2, Albumin/Globulin Ratio 2.0 H, HCV Ab MADELINE w/Rflx PCR Qn Negative, HIV Ag/Ab Combo Qual Negative 10/23/24 05:45: Sodium 140, Potassium 3.5, Chloride 109 H, Carbon Dioxide 28, Anion Gap 6.5, BUN 25 H, Creatinine 1.70 H, Estimated Creat Clear 24, Estimated GFR 28 L, Est GFR ( Amer) 34 L, Glucose 105 H, Calcium 9.9, Magnesium 1.4 L, Total Bilirubin 0.2, AST 28 D, ALT 14, Alkaline Phosphatase 50, Total Protein 5.4 L, Albumin 3.4 L D, Globulin 2.0, Albumin/Globulin Ratio 1.7 I & O for Last 24 hours: Intake & Output 10/20/24 10/21/24 10/22/24 10/23/24 23:59 23:59 23:59 23:59 Intake Total 240 / 240 Output Total 500 / 500 300 / 300 Balance -260 / -260 -300 / -300 Weight 68.209 kg 68.42 kg Constitutional Constitutional: no acute distress, average body habitus, chronically ill appearing and cooperative *Routine HEENT Exam Head: Present normocephalic Eye: Present EOMI and PERRL ENT: Present mucous membranes moist *Routine Neck Exam Neck: Present supple; Absent lymphadenopathy *Routine Respiratory Exam Respiratory: Present CTA bilaterally; Absent rhonchi, wheezes or crackles *Routine Cardiovascular Exam Cardiovascular: Present RRR *Routine Abdominal Exam Abdominal: Present soft and normoactive bowel sounds; Absent tenderness *Routine Rectal Exam Patient deferred: visual exam *Routine Exam Patient deferred: external exam *Routine Extremities Exam Extremities: Absent cyanosis, clubbing or edema *Routine Skin Exam Skin: Present intact and warm; Absent rash *Routine Neurological Exam Neurological: Present alert, oriented X3 and moving all extremities; Absent altered mental status Results Data Completed and Pending Labs on day of discharge: Labs from last 24 hours 10/23/24 10/22/24 05:45 11:58 WBC 5.4 RBC 4.88 Hgb 12.5 Hct 40.1 MCV 82.2 MCH 25.6 L MCHC 31.2 L RDW TNP Plt Count 269 MPV 9.6 Neut % (Auto) 48.3 Lymph % (Auto) 34.2 [place] % (Auto) 10.4 H Eos % (Auto) 5.0 Baso % (Auto) 1.9 Neut # (Auto) 2.6 Lymph # (Auto) 1.8 [place] # (Auto) 0.6 Eos # (Auto) 0.3 Baso # (Auto) 0.1 PT 11.6 INR 1.04 APTT 27.1 Sodium 140 138 Potassium 3.5 3.5 Chloride 109 H 106 Carbon Dioxide 28 27 Anion Gap 6.5 8.5 BUN 25 H 24 H Creatinine 1.70 H 1.90 H Estimated Creat Clear 24 Estimated GFR 28 L 25 L Est GFR ( Amer) 34 L 30 L Glucose 105 H 107 H Calcium 9.9 9.9 Magnesium 1.4 L Total Bilirubin 0.2 0.3 AST 28 D 38 H ALT 14 18 Alkaline Phosphatase 50 59 Total Protein 5.4 L 6.6 Albumin 3.4 L D 4.4 Globulin 2.0 2.2 Albumin/Globulin Ratio 1.7 2.0 H HCV Ab MADELINE w/Rflx PCR Qn Negative HIV Ag/Ab Combo Qual Negative DS: Diagnosis Discharge Diagnosis (1) Accidental overdose of calcium-channel hao: Status: Acute Code(s): T46.1X1A - Poisoning by calcium-channel blockers, accidental (unintentional), initial encounter (2) Bradycardia: Status: Acute Code(s): R00.1 - Bradycardia, unspecified (3) HLD (hyperlipidemia): Status: Chronic Code(s): E78.5 - Hyperlipidemia, unspecified Qualifiers: Hyperlipidemia type: mixed hyperlipidemia Qualified Code(s): E78.2 - Mixed hyperlipidemia (4) Memory deficit: Status: Acute Code(s): R41.3 - Other amnesia (5) Anxiety: Status: Chronic Code(s): F41.9 - Anxiety disorder, unspecified (6) HTN (hypertension): Status: Chronic Code(s): I10 - Essential (primary) hypertension Qualifiers: Hypertension type: essential hypertension Qualified Code(s): I10 - Essential (primary) hypertension (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 Code(s): Z79.01 - USP (current) use of anticoagulants (8) PAF (paroxysmal atrial fibrillation): Status: Acute Code(s): I48.0 - Paroxysmal atrial fibrillation (9) CKD (chronic kidney disease) stage 4, GFR 15-29 ml/min: Status: Chronic Code(s): N18.4 - Chronic kidney disease, stage 4 (severe) Meds Home Medications and Allergies Home Medications ?Medication ?Instructions ?Recorded ?Confirmed ?Type ferrous sulfate 325 mg (65 mg 325 mg PO BID #60 tabs 09/10/24 10/22/24 Rx iron) tablet donepezil 5 mg tablet 5 mg PO HS #30 tabs 10/22/24 10/22/24 Rx quetiapine 25 mg tablet 25 mg PO HS 10/22/24 10/22/24 History apixaban 2.5 mg tablet (Eliquis) 2.5 mg PO BID 10/23/24 10/23/24 History atorvastatin 20 mg tablet 20 mg PO HS 10/23/24 10/23/24 History diltiazem HCl 120 mg See Rx Instructions .Route 10/23/24 Rx capsule,extended release 24 hr .COMPLEX 30 days #90 caps metoprolol succinate 100 mg 100 mg PO DAILY 10/23/24 10/23/24 History tablet,extended release 24 hr triamterene 37.5 0.5 tab PO DAILY 10/23/24 10/23/24 History mg-hydrochlorothiazide 25 mg tablet New Prescriptions to Start Prescriptions: diltiazem HCl Marlon Vigil Allergies Allergy/AdvReac Type Severity Reaction Status Date / Time cefuroxime Allergy rash Verified 10/16/24 10:38 Penicillins Allergy Verified 10/16/24 10:38 Discharge Plan Disposition Patient Disposition: Home, Self-Care Condition: Fair Discharge Order Discharge Orders: Discharge Order (Routine); Ordered 10/23/24 Ordered By: Marlon Vigil Follow up Plan Follow up with: Raymond Joya MD [Primary Care Provider] - 11/04/24 12:20 pm Prescriptions/Medication Reconciliation: Continued ferrous sulfate 325 mg (65 mg iron) tablet 325 mg PO BID Qty: 60 2RF donepezil 5 mg tablet 5 mg PO HS Qty: 30 2RF Patient Comments: TAKE 1 TABLET BY MOUTH AT BEDTIME quetiapine 25 mg tablet 25 mg PO HS triamterene-hydrochlorothiazid 37.5-25 mg tablet 0.5 tab PO DAILY atorvastatin 20 mg tablet 20 mg PO HS metoprolol succinate 100 mg tablet extended release 24 hr 100 mg PO DAILY Eliquis 2.5 mg tablet 2.5 mg PO BID Changed diltiazem HCl 120 mg capsule,extended release 24hr See Rx Instructions .ROUTE .COMPLEX 30 Days Qty: 90 2RF Patient Comments: TAKE 2 CAPSULES BY MOUTH 2 TIMES DAILY Rx Instructions: 1 capsule in the morning, 2 capsules nightly Problem Reconciliation Problems Reviewed?: Yes Patient Discharge Instructions ACTIVITY: Continue current activity DIET: continue same diet Patient Instructions: Calcium, Calcium Channel Blockers (Alternative Therapy) Print Language: Belarusian Providers Primary Care Provider: Raymond GUADALUPE Admit Provider: Marlon Vigil Attending Provider: Marlon Vigil
--- NOTE | 2024-10-23 08:06 | HMH.PHAINT1 ---
Pharmacy Intervention Comments: HOME MEDICATION LIST VERIFIED USING LIST FROM OUTPATIENT PHARMACY AND PT INTERVIEW
[2024-10-23] MEDS: MAGNESIUM SULFATE IN WATER 2 GM/50 ML PIGGYBACK IV ×3 (08:58→11:18)
[2024-10-23] MEDS: POTASSIUM CHLORIDE 20MEQ TAB 40 MEQ PO ×2 (08:58→12:30)
[2024-10-23] MEDS: APIXABAN 5MG TABLET 2.5 MG PO (08:59)
--- NOTE | 2024-10-24 10:32 | CARE MANAGER ---
Spoke with daughter as she returned call for hospital discharge follow up. They are aware of change in medications and follow up appointment. Deny questions or concerns at this time.
== END 2024-10-23 13:02 | disposition home or self-care (01) | DRG 918 ==
LOC: ER 13:55 → 2ND 14:04
PROVIDERS: Admitting Provider Internal Medicine Adolescent Medicine; Emergency Provider Student in an Organized Health Care Education/Training Program; PCP Family Medicine; Visit Provider Internal Medicine Adolescent Medicine
DX: T46.1X1A Poisoning by calcium-channel blockers, accidental (unintentional), initial encounter (principal); N18.4 Chronic kidney disease, stage 4 (severe); I12.9 Hypertensive chronic kidney disease with stage 1 through stage 4 chronic kidney disease, or unspecified chronic kidney disease; G47.9 Sleep disorder, unspecified; I48.91 Unspecified atrial fibrillation; R00.1 Bradycardia, unspecified; R41.3 Other amnesia; Y92.009 Unspecified place in unspecified non-institutional (private) residence as the place of occurrence of the external cause; E78.5 Hyperlipidemia, unspecified; Z79.899 Other long term (current) drug therapy; Z79.01 Long term (current) use of anticoagulants; Z60.2 Problems related to living alone; Z88.1 Allergy status to other antibiotic agents; Z88.0 Allergy status to penicillin
CPT/HCPCS: 80053; 83735; 85025; 85610; 85730; 86803; 87389; 93005; 99291; J3475; J7120